=== PATIENT | male | born 1965 | race Caucasian/White ===

== ENCOUNTER 2024-06-10 18:53 | Observation (INO) | payer OTHER, SELFPAY ==
[2024-06-10] VITALS (10 sets, daily range): BP systolic 87–136; BP diastolic 61–88; BMI 37.8
[2024-06-10 15:03] LABS: % Basophils 0.5 % (0-2); % Eosinophils 3.3 % (0-6); % Immature Granulocytes 0.5 % (0-0.5); % Lymphocytes 32.4 % (20.5-51.1); % Monocytes 5.8 % (1.7-9.3); % Neutrophils 57.5 % (42.2-75.2); Absolute Basophils 0.1 10^3/uL (0-0.2); Absolute Eosinophils 0.4 10^3/uL (0-0.7); Absolute Immature Granulocytes 0.1 10^3/uL (0-0.05); Absolute Lymphocytes 3.7 10^3/uL (1.2-3.4); Absolute Monocytes 0.7 10^3/uL (0.1-0.6); Absolute Neutrophils 6.5 10^3/uL (1.4-6.5); Hematocrit 44.7 % (39.0-52.0); Hemoglobin 15.5 g/dL (13.0-18.0); Mean Corp Hgb Conc. 34.7 g/dL (33.0-37.0); Mean Corpuscular Hgb 28.4 pg (27.0-31.0); Mean Corpuscular Volume 81.9 fL (80.0-94.0); Mean Platelet Volume 10.9 fL (7.4-10.4); Nucleated Red Blood Cells % 0 % (-); Platelet Count 241 10^3/uL (130-400); Red Blood Cell Count 5.46 10^6/uL (4.70-6.10); Red Cell Dist. Width 13.2 % (11.5-14.5); White Blood Cell Count 11.3 10^3/uL (4.8-10.8)
[2024-06-10 15:16] LABS: ALT (SGPT) 32 U/L (0-50); AST (SGOT) 26 U/L (17-59); Albumin 4.1 g/dl (3.5-5.0); Alkaline Phosphatase 80 U/L (38-126); Blood Urea Nitrogen 26 mg/dl (9-20); Calcium 9.5 mg/dl (8.4-10.2); Carbon Dioxide 23 mmol/L (22-30); Chloride 103 mmol/L (98-107); Glucose 354 mg/dl (70-99); Potassium 4.7 mmol/L (3.5-5.1); Sodium 134 mmol/L (135-145); Total Bilirubin 0.9 mg/dl (0.2-1.3); Total Protein 7.5 g/dl (6.3-8.2); eGFR > 60.00
[2024-06-10 15:28] LABS: Troponin I 0.018 ng/ml
--- NOTE | 2024-06-10 16:53 | ED.GENMED ---
History of Present Illness
General
Chief Complaint: Chest Pain
Source: patient and spouse
Exam Limitations: none
Time Seen by Provider: 06/10/24 16:32
History of Present Illness
History of Present Illness:
58-year-old male asthma hypertension type 2 diabetes on lisinopril metformin presents with fatigue shortness of breath dizziness chest pressure no fevers onset 2 to 3 weeks ago worse with exertion better with rest did have some diarrhea yesterday
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
Past History
Past History
ED Past Medical History: Asthma, HTN, NIDDM and Other
ED Past Surgical History: None
Social History
Tobacco: Non-smoker
Alcohol: Occasional
Drug: None
Personal:
Living: with family
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
Family History
Family History: Early CAD
Review of Systems
Review of Systems
All Other Systems: Not applicable
Constitutional: Reports fatigue
EENT: Reports no symptoms
Respiratory: Reports trouble breathing
Cardiac: Reports chest pain; Denies diaphoresis
ABD/GI: Reports no symptoms
: Reports no symptoms
Musculoskeletal: Reports no symptoms
Skin: Reports no symptoms
Neurological: Reports weakness
Endocrine: Reports no symptoms
Hematologic/Lymphatic: Reports no symptoms
Phy Exam
Physical Exam
Physical Exam:
Physical Exam
General: no apparent distress, not acutely ill
Neck: No no jaundice
Heart: Regular
Lungs: no acute respiratory distress. clear bilaterally no wheezing
Abdomen not tender
Neuro: alert and oriented. no focal neurological deficits
Skin: no rash
Psychiatric: well kept. interactive and cooperative
Extremities: no edema. no calf tenderness.
Scores
Heart Score for Chest Pain Patients
STEMI patient?: No
History: Moderately Suspicious
ECG: Nonspecific Repolarization
Age: >45 - <65 years
Risk Factors: >/= 3 Risk Factors or History of CAD
Troponin: </= Normal Limit
Heart Score for Chest Pain Patients: 5
Heart Score Risk: 20.3% MACE over next 6 weeks
Course
Orders/Labs/Results
Orders:
Orders
06/10/24 14:16
Electrocardiogram (*1) Urgent
Reason for Study: Chest Pain
EKG- Treatment ONCE
06/10/24 14:45
Complete Blood Count/With Diff Urgent
Comprehensive Metabolic Panel Urgent
Glycohemoglobin (HgbA1c) Urgent
NT-proBNP Urgent
Comment: ADD ON
Troponin I Urgent
06/10/24 16:51
Add On- LAB Urgent
Tests Added?: hemoglobian a1c, pBNP
06/10/24 16:52
CR Chest - 2 Views Urgent
Comment:
Reason For Exam: sob
06/10/24 16:55
Troponin I Urgent
06/10/24 17:07
Aspirin 325 mg PO NOW STA
Insulin Aspart [NOVOLOG vial] 6 units SC NOW STA
Abnormal Lab Results
06/10/24
14:45
WBC 11.3 H 10^3/uL
(4.8-10.8)
MPV 10.9 H fL
(7.4-10.4)
Abs Immat Gran (auto) 0.1 H 10^3/uL
(0-0.05)
Absolute Lymphs (auto) 3.7 H 10^3/uL
(1.2-3.4)
Absolute Monos (auto) 0.7 H 10^3/uL
(0.1-0.6)
Sodium 134 L mmol/L
(135-145)
BUN 26 H mg/dl
(9-20)
Glucose 354 H mg/dl
(70-99)
06/10/24 14:45
06/10/24 14:45
Vital Signs
Initial and Last Documented VS:
Initial Vital Signs
Temp Pulse Resp BP Pulse Ox
98 F 101 22 136/88 98
06/10/24 14:36 06/10/24 14:36 06/10/24 14:36 06/10/24 14:36 06/10/24 14:36
Last Documented Vital Signs
Temp Pulse Resp BP Pulse Ox
98 F 101 22 136/88 98
06/10/24 14:36 06/10/24 14:36 06/10/24 14:36 06/10/24 14:36 06/10/24 17:15
MDM/Problems Addressed
Differential Diagnosis Includes:
ACS uncontrolled diabetes electrolyte abnormality dehydration heart failure doubt PE
MDM/Problems Addressed:
Fatigue chest pain shortness of breath
Chronic conditions affecting care: DM and HTN
Acute Exacerbation and/or Progression of Chronic Illness: HTN
*EKG
Interpreted by ED Provider?: Yes
Interpretation: abnormal
Comparison EKG: no comparison EKG present
Heart Rate: 78
Rate: normal
Rhythm: sinus
Ischemia: non-specific ST changes
*Director Of Search Engine Optimization Interpretation
Rate: normal
Interpretation: normal
Rhythm: sinus
*Critical Care Note
Total Time (30-74mins, 75-104mins- exclusive of procedures): Not Applicable
Update Note
Update Note:
5:15 PM multiple cardiovascular risk factors including hypertension diabetes family history sugars, states he is dyspneic with any exertion, will repeat his troponin start aspirin give him some NovoLog low threshold to admit for facilitated workup
close monitoring
ED Attending Note
-
Portions of this chart may have been created with voice recognition software.� Occasional wrong word or��sound alike� substitutions may have occurred due to the inherent limitations of voice recognition software.
Discharge Plan
Departure
Patient Disposition: Admit
Date of Disposition: 06/10/24
Time of Disposition: 17:19
Admit to: Telemetry
Presentation/result/management discussed w/ accepting MD/DO: Hospitalist
Patient with high blood pressure during this ER visit?: Yes
Condition: Fair
Covid-19: Not Applicable
Discharge Problem:
Chest pain, Diabetes
Prescriptions:
No Action
lisinopril-hydrochlorothiazide 20-25 mg Tablet
1 tab PO DAILY
albuterol sulfate [ProAir HFA] 90 mcg/actuation Hfa Aerosol Inhaler
2 puff INHALATION 6XD PRN (Reason: shortness of breath)
testosterone enanthate
diazepam [Valium] 5 mg tablet
5 mg PO HS PRN (Reason: muscle spasm) Qty: 7 0RF
diclofenac sodium 75 mg tablet,delayed release (DR/EC)
75 mg PO BID Qty: 10 0RF
Referrals:
Aleksandar Lyle MD [Family Provider] -
Interventions
Interventions:
*Risk Screen - Suicide Last Done: 06/10/24 14:36
*General Assessment Last Done: 06/10/24 14:36
*Neglect/Abuse Screening Last Done: 06/10/24 14:36
*ED- Fall Risk Assessment Last Done: 06/10/24 17:15
*ED COVID-19 Vaccine History Last Done: 06/10/24 17:15
ED- Cardiac Assessment Last Done: 06/10/24 17:15
Discharge Date and Time
Print Language: UZBEK
--- NOTE | 2024-06-10 17:20 | HPS.HSE ---
Addendum entered and electronically signed by Clay Brown MD 06/10/24 20:26:
I saw and examined the patient.
The NEW CAR SALES MANAGER or PA's note was reviewed and I agree with the note.
Comment:
58M Obesity HTN Asthma NIDDM p/w intermittent persistent progressive chest discomfort associated with exertional dyspnea 2-3 wks duration. Reported episodic dizziness/lightheadedness presyncope. Reported one episode diarrhea night prior to
presentation. Denied fever coughing sneezing nausea vomiting constipation. Reports family history heart dz mother and father.
Physical Exam
General: No acute distress appeared comfortable at time of evaluation. Obese
HEENT: NormoCephalic, Moist mucous membranes, Atraumatic
Respiratory: Clear
Cardiac: S1/S2 and Regular Rhythm
GI: Soft, Non Tender, Non Distended and Normal Bowel Sounds
Musculoskeletal: No Clubbing, No Cyanosis and No Edema
Neuro: AOx3 conversant coherent
Psych: Calm and Intact Judgment/Insight
#Intermittent chest pain exertional dyspnea unclear Etiology
#Significant family hx CAD
#significant risk factors CAD
Tele observation
Troponin neg x2
BNP not significantly elevated
Cardio eval
follow up lipid panel in AM
Check ECHO
#Uncontrolled DM
f/u A1c
hold home Metformin
Insulin sliding scale
DM NEW CAR SALES MANAGER eval
Original Note:
Family Physician
-
Family Physician: Aleksandar Lyle
Chief Complaint
-
chest pain
History of Present Illness
Patient is a 58-year-old male with past medical history significant for essential hypertension, asthma and NIDDM who presented to [facility] ED for evaluation of chest discomfort associated with shortness of breath. Patient reports that 2-3
weeks ago he started noticing the discomfort with exertion and has progressed to when at rest and is more frequently. He reports having dizzy and lightheadedness that at times feels like he will pass out. He denies any syncopal episode. Patient
reports yesterday not feeling well and having diarrhea with chills throughout the day and resolved by last night. He denies any fever, cough, nausea, vomiting, constipation or urinary symptoms.
Medical History
Past Medical History
Past Medical History: Reports Other
Additional Past Medical History:
essential hypertension
asthma
NIDDM
GERD
ED
Past Surgical History: Reports None
Social History
Tobacco: Former Smoker (quit 19 years ago )
Alcohol: Occasional
Drug: None
Personal:
Living: With Family
Employment: Employed
Family History
Family History: Other (Father: CAD, MD; Mother: CAD, DM; Brother: DM)
Allergies / Home Medications
Allergies reflects when Allergies were last updated in [employer].
Home Medications with original date entered in [employer]
Allergy/Medication List:
Allergies
Allergy/AdvReac Type Severity Reaction Status Date / Time
No Known Allergies Allergy Verified 06/10/24 14:36
Home Medications
lisinopril 20 mg-hydrochlorothiazide 25 mg tablet 1 tab PO DAILY 10/18/21
albuterol sulfate 90 mcg/actuation aerosol inhaler 2 puff inhalation R Q6HPRN PRN sob 06/10/24
famotidine 20 mg tablet (Pepcid) 20 mg PO DAILYPRN PRN indigestion 06/10/24
fexofenadine 180 mg tablet 180 mg PO DAILYPRN PRN allergies 06/10/24
fluticasone 250 mcg-salmeterol 50 mcg/dose blistr powdr for inhalation 1 inh inhalation R BID 06/10/24
metformin 500 mg tablet 500 mg PO BID 06/10/24
tadalafil 20 mg tablet 20 mg PO DAILYPRN PRN ed 06/10/24
Review of Systems
-
History Source: Patient
Constitutional: Reports Fatigue
Respiratory: Reports Trouble Breathing (shortness of breath associated with chest discomfort )
Cardiac: Reports Chest Pain and Other (dizziness/lightheaded)
Physical Exam
Vital Signs
Vital Signs
Temp Pulse Resp BP Pulse Ox
98 F 101 22 136/88 98
06/10/24 14:36 06/10/24 14:36 06/10/24 14:36 06/10/24 14:36 06/10/24 17:15
Physical Exam
General: Well Developed, Well Nourished, No Apparent Distress, Comfortable and Conversant
HEENT: NormoCephalic, Moist mucous membranes, Atraumatic, Bledsoe Conjunctivae, Nose Appears Normal and Ears Appear Normal
Respiratory: Clear
Cardiac: S1/S2 and Regular Rhythm
GI: Soft, Non Tender, Non Distended and Normal Bowel Sounds; No Organomegaly
Rectal: Deferred by Provider
Genito-urinary: Deferred by me
Musculoskeletal: No Clubbing, No Cyanosis and No Edema
Skin: IV/Catheter Site
Neuro: Awake, Alert, AO x 3 and Nonfocal/grossly intact
Psych: Calm and Intact Judgment/Insight
Laboratory Results
-
06/10/24 14:45
06/10/24 14:45
Laboratory Results
Total Bilirubin 0.9 mg/dl (0.2-1.3) 06/10/24 14:45
AST 26 U/L (17-59) 06/10/24 14:45
ALT 32 U/L (0-50) 06/10/24 14:45
Alkaline Phosphatase 80 U/L (38-126) 06/10/24 14:45
Troponin I 0.018 ng/ml 06/10/24 14:45
Data Reviewed
-
Diagnostic Radiology: Report Reviewed by me (CXR: No evidence of active cardiopulmonary disease.)
Medical Tests (Nuc Med, Echo, EKG etc): Report Reviewed by me (EKG: NORMAL SINUS RHYTHM POSSIBLE INFERIOR INFARCT , AGE UNDETERMINED)
Lab Data: Labs Reviewed by me (WBC 11.3, Neut 57.5, BUN 26, Creat 1.3, Trop 0.018)
Impression/Plan
-
IMPRESSION/PLAN:
#chest pain
Trop 0.018, BNP 50.7
EKG: NORMAL SINUS RHYTHM
POSSIBLE INFERIOR INFARCT , AGE UNDETERMINED
CXR: No evidence of active cardiopulmonary disease.
- Admit to telemetry
- Cardiology consult
- trend troponin
- ECHO
#essential hypertension
- continue lisinopril-HCTZ
#asthma
- continue albuterol HFA and fluticasone
#NIDDM
- AccuCheck AC & HS
- SSI
- hold metformin
- check A1c
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
#GERD
- continue famotidine
Code status: full code
DVT prophylaxis: Lovenox Sq
[2024-06-10 17:41] LABS: NT-proBNP 50.7 pg/ml
[2024-06-10 18:18] LABS: Glucose - Point of Care 295 mg/dl (70-99)
[2024-06-10] MEDS: ASPIRIN 325 MG PO (18:20)
[2024-06-10] MEDS: NOVOLOG vial 4 UNITS SC (18:20)
[2024-06-10 19:08] LABS: Troponin I 0.017 ng/ml
[2024-06-10 20:02] LABS: Glucose - Point of Care 261 mg/dl (70-99)
[2024-06-10 23:38] LABS: Glucose - Point of Care 227 mg/dl (70-99)
[2024-06-11] VITALS (9 sets, daily range): BP systolic 84–126; BP diastolic 58–96; BMI 38.1
[2024-06-11 01:21] LABS: Troponin I 0.013 ng/ml
--- NOTE | 2024-06-11 06:00 | PTCARENOTE ---
Pt complaints of dizziness and SOB upon walking to and from bathroom. Pt remains on RA. Vital signs stable. Denies any complaints of SOB. EKG/ am lab work obtained. Call ramirez in reach. Will continue to monitor.
[2024-06-11 06:02] LABS: Blood Urea Nitrogen 24 mg/dl (9-20); Calcium 9.4 mg/dl (8.4-10.2); Carbon Dioxide 25 mmol/L (22-30); Chloride 104 mmol/L (98-107); Estimated Creatinine Clearance 85 ml/min; Glucose 230 mg/dl (70-99); HDL Cholesterol 43 mg/dl; LDL Cholesterol, Calculated 136 mg/dl; Potassium 4.3 mmol/L (3.5-5.1); Sodium 138 mmol/L (135-145); Total Cholesterol 217 mg/dl (50-199); Triglyceride 194 mg/dl (10-149); Very Low Density Lipoprotein 38 mg/dl (0-30); eGFR > 60.00
[2024-06-11 06:11] LABS: Troponin I 0.015 ng/ml
--- NOTE | 2024-06-11 07:18 | W.PN.HOSP.TC ---
Today's Communication/Plan
-
discharge
Assessment / Plan
Assessment / Plan
Physical Exam
General: No acute distress appeared comfortable at time of evaluation. Obese
HEENT: NormoCephalic, Moist mucous membranes, Atraumatic
Respiratory: Clear
Cardiac: S1/S2 and Regular Rhythm
GI: Soft, Non Tender, Non Distended and Normal Bowel Sounds
Musculoskeletal: No Clubbing, No Cyanosis and No Edema
Neuro: AOx3 conversant coherent
Psych: Calm and Intact Judgment/Insight
58M Obesity HTN Asthma NIDDM p/w intermittent persistent progressive chest discomfort associated with exertional dyspnea 2-3 wks duration. Reported episodic dizziness/lightheadedness presyncope. Reported one episode diarrhea night prior to
presentation. Denied fever coughing sneezing nausea vomiting constipation. Reports family history heart dz mother and father.
#chest pain evaluation unclear etiology
BNP 50.7
EKGs reviewed
CXR: No evidence of active cardiopulmonary disease.
- Tele observation
- Troponin x4 consistently neg for ACS
- ECHO appreciated EF 55-60% no significant valve abn's
- Cardiology consult appreciated outpt stress test and follow up recommended
Lipid panel appreciated Hyperlipidemia
-atorvastatin recommended for greater risk reduction ACS, patient however declines at this time preferring lifestyle mgmt and to avoid statins.
#essential hypertension
- continue lisinopril-HCTZ
#asthma
- continue albuterol HFA and fluticasone
#NIDDM
- A1c appreciated 13.9 uncontrolled DM
- Consult Diabetic ARCHITECTURAL INTERN appreciated metformin increased to 1000 mg BID, glimepiride 2 mg daily started, and Lantus 10U bedtime added
- Diabetes Education appreciated
#GERD
- continue famotidine
Code status: full code
DVT prophylaxis: Lovenox Sq
Medically stable for discharge home with outpatient follow up recommendations.
discussed with patient and patient's Emerald
Total Time Preparing Discharge __40 minutes including examination of the patient, summary of the hospital stay, instructions for continuing care to all relevant caregivers; and preparation of discharge records, prescriptions, and referral
forms if necessary.
Anticipated Discharge: Today
Subjective/Interval History
-
Date of Service: June 11, 2024
No acute distress. Overall reports feeling well. Eager to go home.
Objective Data
-
Labs:
Laboratory Results
06/11/24
05:09
Sodium 138
Potassium 4.3
Chloride 104
Carbon Dioxide 25
BUN 24 H
Creatinine 1.3
Glucose 230 H
Calcium 9.4
Vital Signs:
Vital Signs
Temp Pulse Resp BP Pulse Ox
98 F 73 9 112/72 95
06/10/24 14:36 06/11/24 06:00 06/11/24 06:00 06/11/24 06:00 06/11/24 05:45
I&O
06/10/24 06/11/24 06/12/24
06:59 06:59 06:59
Intake Total 480 / 480
Balance 480 / 480
[2024-06-11 07:58] LABS: Glucose - Point of Care 213 mg/dl (70-99)
[2024-06-11] MEDS: ADVAIR HFA 115/21 MCG INHALER 2 PUFF INH (08:09)
[2024-06-11] MEDS: NOVOLOG FLEXPEN-LOW RESISTANCE 2 UNITS SC (08:34)
[2024-06-11] MEDS: ORETIC 25 MG PO (08:41)
[2024-06-11] MEDS: ZESTRIL 20 MG PO (08:41)
[2024-06-11 09:44] LABS: Glycohemoglobin (HgbA1c) 13.9 % (4.0-5.6)
--- NOTE | 2024-06-11 12:14 | PN.DE.MGMTRT ---
Insulin Management
- -
06/11/2024 Diabetes Management Consult
Patient c/o CP, fatigue, SOB, admitted 06/10. PMH HTN, GERD, diabetes, asthma. Prior to admission was taking 500 mg metformin BID (sometimes missed doses).
A1C on admission 13.9, cr 1.3, eGFR > 60.
Patient is awake alert and oriented able to discuss diabetes care. States he has a working glucose monitor, will bring in to be assessed. Patient states he really has not been testing or following any dietary guidelines. His primary doctor
manages his diabetes, but he has not been there in years, per patient.
Discussed elevated A1C and need to increase oral medication and start insulin.
Will increase metformin to 1000 bid add glimepiride 2 mg daily and start lantus 10 units @ HS. Patient is agreeable. Asked about starting weight loss med like Raji, encouraged patient to speak with primary care doctor regarding this.
Patient glucose 352 pre lunch, will give one time dose, 8 units novolog now.
Will follow.
Discussed with nurse.
Diabetes History
- -
Type of Diabetes: 2
Pre-Admission Diabetes Regimen
06/10/24 06/11/24
14:45 05:09
Creatinine 1.3 1.3
Lab Results
Hemoglobin A1c 13.9 % (4.0-5.6) H 06/10/24 14:45
Insulin Pump Settings
IP Diabetes Regimen
06/10/24 06/10/24 06/10/24
14:45 18:15 20:00
Glucose 354 H
POC Glucose 295 H 261 H
06/10/24 06/11/24 06/11/24
23:37 05:09 07:57
Glucose 230 H
POC Glucose 227 H 213 H
Patient Education
[2024-06-11 13:02] LABS: Glucose - Point of Care 352 mg/dl (70-99)
[2024-06-11] MEDS: AMARYL 2 MG PO (13:05)
[2024-06-11] MEDS: NOVOLOG FLEXPEN 8 UNITS SC (13:05)
[2024-06-11] MEDS: NOVOLOG FLEXPEN-LOW RESISTANCE SC ×2 (13:19→17:20)
--- NOTE | 2024-06-11 14:42 | CON.CAR ---
Addendum entered and electronically signed by Tyrel Portillo MD 06/11/24 15:49:
I saw and examined the patient.
The Iron Erector's note was reviewed and I agree with the note.
Comment: Briefly, 58-year-old man with poorly controlled diabetes, hypertension hyperlipidemia who presents for evaluation following several days to weeks of intermittent lightheadedness, dizziness, chest discomfort and dyspnea. It sounds like his
symptoms have been intermittent over the last week or so including while working on his boat at the [place]. Also reports diarrhea as well around this time.
No ischemic changes on serial ECGs
Troponin was within normal limits x 4
Transthoracic echocardiogram with normal LV function and no regional wall motion abnormalities
Discussed ischemic workup with patient and at bedside. We will arrange for outpatient stress test and close office follow-up.
Original Note:
Consultation
Consultation Request
Date/Time Consultation Requested: 06/10/24
Date/Time Consultation Performed: 06/11/24
Requesting Provider: Dr. Brown
Performing Provider: Dr. Portillo
Reason for Consultation: Chest pain, DELAROSA, lightheadedness
Medical History
-
History of Present Illness:
Patient came to ER yesterday with complaints of episodes of chest pressure, DELAROSA and lightheadedness over the last several weeks and was admitted with consultation to cardiology. Starting several weeks ago patient was having episodes of chest
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 More recently, this past Monday he and his teenage son were working on their sailboat at the
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
felt lightheaded so they finish their job and returned home. Over the next 24 hours the patient felt ill with symptoms of diarrhea but no vomiting and he also had chills, but no fever and was tired and took a several hour long nap. Yesterday the
patient was scheduled to work 6 PM to 2 AM and still was not feeling himself and was concerned about being in a potentially high risk environment and having an episode so he came to the ER for evaluation. No recurrence of CP.
PMH:
DM 2, poorly controlled with HgbA1c 13.9%
HTN
Past Medical History
Past Medical History: Other (in HPI)
Past Surgical History: Other (hip lipoma removed)
Social History
Tobacco: Former Smoker (started smoking in his late teens/early 20s and quit in 2005)
Alcohol: Occasional (monthly or less)
Drug: None
Personal:
Living: With Family
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
Family History
Family History: CAD (father with RI in his mid to late 50s, mother with DM 2 and RI in her 70s)
Allergies / Home Medications
Allergy/AdvReac Type Severity Reaction Status Date / Time
No Known Allergies Allergy Verified 06/10/24 14:36
�Medication �Instructions �Recorded �Confirmed �Type
lisinopril 20 1 tab PO DAILY 10/18/21 06/10/24 History
mg-hydrochlorothiazide 25 mg tablet
albuterol sulfate 90 mcg/actuation 2 puff inhalation R Q6HPRN PRN sob 06/10/24 06/10/24 History
aerosol inhaler
famotidine 20 mg tablet (Pepcid) 20 mg PO DAILYPRN PRN indigestion 06/10/24 06/10/24 History
fexofenadine 180 mg tablet 180 mg PO DAILYPRN PRN allergies 06/10/24 06/10/24 History
fluticasone 250 mcg-salmeterol 50 1 inh inhalation R BID 06/10/24 06/10/24 History
mcg/dose blistr powdr for
inhalation
metformin 500 mg tablet 500 mg PO BID 06/10/24 06/10/24 History
tadalafil 20 mg tablet 20 mg PO DAILYPRN PRN ed 06/10/24 06/10/24 History
Review of Systems
-
History Source: Patient and Family ()
All other systems: Negative unless noted
Physical Exam
Vital Signs
Temp Pulse Resp BP Pulse Ox
98.2 F 90 18 110/76 96
06/11/24 12:50 06/11/24 12:50 06/11/24 12:50 06/11/24 12:50 06/11/24 12:50
GEN: NAD. AAOx3
HEENT: EOMI, MMM
LUNGS: RA. CTA B/L, no wheeze
CV: Reg, S1/S2, no murmur
ABD: soft, BS+, NT, ND
EXT: No clubbing, cyanosis, lesions or edema B/L
NEURO: Gross non-focal
SKIN: Warm, dry and pink. No rash
Lab Results
06/10/24 14:45
06/11/24 05:09
Troponin I 0.015 ng/ml 06/11/24 05:09
[id number]-Yqdzrcopxnk Pept Cancelled 06/10/24 16:55
Impression / Plan
-
PCP: Dr. Lyle
Card: None prior to admission
Impression:
Chest pain and DELAROSA in the ER 06/10/24
Chest pain
DELAROSA
Lightheadedness
DM 2, poorly controlled with HgbA1c 13.9%
HTN
Hyperlipidemia, declined statin
Echo 06/11/2024: EF 55 to 60%, mild concentric LVH, normal RV size and function, no significant valvular pathology
Plan:
-Patient came to ER yesterday with complaints of episodes of chest pressure, DELAROSA and lightheadedness over the last several weeks and was admitted with consultation to cardiology. Starting several weeks ago patient was having episodes of chest
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 More recently, this past Monday he and his teenage son were working on their sailboat at the
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
felt lightheaded so they finish their job and returned home. Over the next 24 hours the patient felt ill with symptoms of diarrhea but no vomiting and he also had chills, but no fever and was tired and took a several hour long nap. Yesterday the
patient was scheduled to work 6 PM to 2 AM and still was not feeling himself and was concerned about being in a potentially high risk environment and having an episode so he came to the ER for evaluation. No recurrence of CP.
-ECG reviewed by me is sinus rhythm without acute ischemic changes
-Troponin serially normal and echo shows preserved EF without WMA and no significant valve disease.
-Patient is agreeable to discharge to home with outpatient stress test. Arranging for outpatient stress test to be performed in the next week at the [facility] office
-LDL is 136 and patient reports that he does not want to be on a statin medication. We talked about how statin medications can help lower LDL cholesterol beyond what he can accomplish with diet and exercise and that given his DM2 and HgbA1c of
13.9% a statin may be beneficial. Patient plans on a dramatic lifestyle change with diet and exercise at this time does not want to be on a statin.
-BP is controlled on his usual doses of lisinopril/HCTZ 20/25 mg daily
--- NOTE | 2024-06-11 15:47 | PTCARENOTE ---
06/11/2024 DIABETES EDUCATION
I met with Lynda and his to review diabetes management. He has a Caretouch glucometer he ordered online and test strips. Rarely checks glucose, admits to forgetting Metformin on occasion. I educated him that he cannot use
test strips, will yield incorrect results.
I educated on physiology of T2D, managing with medications, educated on complications, importance of monitoring BG, nutrition, activity, sleep and managing stress. Discussed normal target glucose ranges and a monitoring schedule pre and
postprandial. I reinforced signs of hyperglycemia, hypoglycemia; BS parameters and recommended HbA1c goals, written material provided. Encouraged patient to follow up with his PCP for post d/c appointment and to monitor medication and blood
glucose levels. Provided list of endocrinologists, he inquired about a CGM, I recommended he discuss with MD.
I educated and reviewed using Contour Next glucometer, member acknowledged understanding and declined a repeat demonstration as he states he knows how to use a glucometer.
I educated and demonstrated on insulin injection technique, timing, and storage. Discussed long and rapid acting insulin; onset/peak/duration, and encouraged him to administer his own injections with RN supervision while admitted. Spoke to nurse
and gave pen needles for self injection of insulin.
Wrapping Machine Tender visited during education, patient expressed desire for d/c today. Requested prescription sent to pharmacy for test strips and lancets for back up SMBG. Information provided on the outpatient DSME program. Patient verbalized
understanding.
--- NOTE | 2024-06-11 17:08 | W.DCSUMMARY ---
Discharge Summary
Discharge Data
Date of Admission: 06/10/24
Date of Discharge: 06/11/24
-
Pending Results: No
Discharge Plan
-
Patient Disposition: Home (Routine Discharge)
Discharge Diagnosis/Procedures: Chest pain evaluation unclear etiology, possible Angina
Hyperlipidemia
Hypertension
Uncontrolled Diabetes
Obesity
Condition: Fair
Diet: Low Cholesterol, 2 Gram Sodium and Diabetic, Carb Controlled
Activity: As tolerated
Driving Restrictions: As prior to admission
Bathing Restrictions: None
Blood Work: recent A1c 13.9 follow up with primary care provider for repeat in 3 months along with repeat lipid profile
Activity Restrictions/Additional Instructions:
Please keep your appointments with primary care provider and director of music.
For uncontrolled diabetes you've been prescribed increased dose home Metformin 1000 mg twice a day, Glimepiride 2 mg daily, and Long acting insulin Tresiba 10U bedtime.
Glucose monitoring device with associate equipment have also been prescribed. Please check and keep a log of your sugars three times a day before meals and at bedtime. Review log with your primary care provider and/or companion in follow up
for further evaluation/treatment diabetes.
Please take medications as prescribed/recommended and follow up with primary care provider and/or other healthcare provider involved in your care for refills and/or further adjustment to your medication regimen as necessary.
Referrals:
Tyrel Portillo MD [Active] - (You are scheduled for an exercise nuclear stress test at the [facility] office on 06/20/24 at 7:40 AM. The office will arrange an appt pending the results.)
Aleksandar Lyle MD [Family Provider] - 06/12/24
Prescriptions:
New
glimepiride 2 mg Tablet
2 mg PO DAILY Qty: 30 0RF
metformin 1,000 mg Tablet
1,000 mg PO BID@0800,1700 Qty: 60 0RF
insulin glargine [Basaglar KwikPen U-100 Insulin] 100 unit/mL (3 mL) insulin pen
10 unit SC HS Qty: 15 0RF
(DME) blood-glucose meter [Contour Next One Meter] Misc
Qty: 1 0RF
Rx Instructions:
As Directed
(DME) Contour Next Test Strips Strip
Qty: 200 0RF
Rx Instructions:
As Directed
(DME) lancets [Color Lancets] 21 gauge Misc
Qty: 200 0RF
Rx Instructions:
As Directed
Continued
lisinopril-hydrochlorothiazide 20-25 mg Tablet
1 tab PO DAILY
fluticasone propion-salmeterol 250-50 mcg/dose Blister With Device
1 inh INHALATION R BID
fexofenadine 180 mg Tablet
180 mg PO DAILYPRN PRN (Reason: allergies)
famotidine [Pepcid] 20 mg Tablet
20 mg PO DAILYPRN PRN (Reason: indigestion)
albuterol sulfate 90 mcg/actuation Hfa Aerosol Inhaler
2 puff INHALATION R Q6HPRN PRN (Reason: sob)
Held
tadalafil 20 mg Tablet
20 mg PO DAILYPRN PRN (Reason: ed)
Hold Instructions: Follow up with primary care provider to determine when safe to resume.
Discontinued
metformin 500 mg Tablet
500 mg PO BID
Discharge Orders:
Discharge Patient (As Directed); Ordered 06/11/24
Ordered By: Clay Brown
Discharge Date and Time
Print Language: CYPRIOT
[2024-06-11 17:28] LABS: Glucose - Point of Care 141 mg/dl (70-99)
== END 2024-06-11 18:16 | disposition home or self-care (01) ==
LOC: 1 ACUTE 18:53
PROVIDERS: Nurse Practitioner Family; ADMITTING PHYSICIAN Internal Medicine; EMERGENCY PHYSICIAN Emergency Medicine; FAMILY PHYSICIAN Family Medicine; OTHER PHYSICIAN Internal Medicine Cardiovascular Disease
DX: R07.89 Other chest pain (principal); J45.909 Unspecified asthma, uncomplicated; E11.65 Type 2 diabetes mellitus with hyperglycemia; I11.9 Hypertensive heart disease without heart failure; R42 Dizziness and giddiness; R06.02 Shortness of breath; R53.83 Other fatigue; R94.31 Abnormal electrocardiogram [ECG] [EKG]; E78.5 Hyperlipidemia, unspecified; K21.9 Gastro-esophageal reflux disease without esophagitis; R06.09 Other forms of dyspnea; R19.7 Diarrhea, unspecified; E66.9 Obesity, unspecified; Z68.38 Body mass index [BMI] 38.0-38.9, adult; Z79.84 Long term (current) use of oral hypoglycemic drugs; Z82.49 Family history of ischemic heart disease and other diseases of the circulatory system; Z87.891 Personal history of nicotine dependence; Z79.51 Long term (current) use of inhaled steroids; Z79.899 Other long term (current) drug therapy; Z83.3 Family history of diabetes mellitus
CPT/HCPCS: 71046; 80048; 80053; 80061; 82962; 83036; 83880; 84484; 85025; 93005; 93306; 99285; G0378; Q9957

== ENCOUNTER → 2024-06-20 07:17 | Outpatient (REF) | payer OTHER, SELFPAY | LOC: HWRCS 07:17 | PROVIDERS: ATTENDING PHYSICIAN Internal Medicine Cardiovascular Disease | DX: I25.9 Chronic ischemic heart disease, unspecified (principal); E11.9 Type 2 diabetes mellitus without complications; E78.2 Mixed hyperlipidemia | CPT/HCPCS: 78452; 93017; A9500 ==

== ENCOUNTER 2024-06-21 06:23 | Day surgery (SDC) | payer OTHER, SELFPAY ==
[2024-06-21] VITALS (11 sets, daily range): BP systolic 100–135; BP diastolic 68–82; BMI 38.1
[2024-06-21] MEDS: LOW STRENGTH ASPIRIN 81 MG PO (07:21)
[2024-06-21 07:28] LABS: Glucose - Point of Care 168 mg/dl (70-99)
--- NOTE | 2024-06-21 10:09 | ITS.CL.CATH ---
Ticket Printer And Tagger - Catheterization
Cardiac Catheterization
Procedure Report:
LEFT HEART CATHETERIZATION
Date of Procedure: June 21, 2024
Referring: Dr. Tyrel Portillo
PROCEDURES:
1. Left heart catheterization with coronary and single-plane left ventriculography
INDICATION: This is a 58-year-old gentleman with poorly controlled diabetes mellitus, hypertension and hyperlipidemia who presented to [facility] on 06/11/2024 for evaluation of substernal chest pressure he was scheduled for an outpatient
stress study that was notable for development of chest discomfort at fairly low levels of exertion. Perfusion was notable for a reversible inferior, inferolateral defect consistent with ischemia and fixed severe apical and inferior apical defect.
ACCESS: Right radial artery, 6 Bulgarian sheath
HEMODYNAMICS : (mmHg)
AO (s/d) : 110/77
LV (s/d) : 111/12
LVEDP : 22
CORONARY FINDINGS
DOMINANCE: Right
LEFT MAIN: Tubular 40% stenosis. No pressure dampening with engagement of a 6 Bulgarian diagnostic catheter
LEFT ANTERIOR DESCENDING: The LAD arises normally from the left main and runs in the anterior interventricular groove. The LAD becomes 100% occluded at the first diagonal branch and the apical LAD is noted to fill via right to left collaterals and
left to left collaterals. The first diagonal branch is large
CIRCUMFLEX: The circumflex is a medium caliber nondominant vessel. OM1 is a small caliber vessel that arises proximally from the circumflex and has an 80% proximal stenosis. The mid circumflex has an eccentric 80% calcified stenosis in the distal
circumflex trifurcates with OM 3 or OM 4 being the largest branch vessels beyond the bifurcation
RIGHT CORONARY ARTERY: 100% occluded proximally with the distal vessel noted to fill via right to right and well-developed [id number] collaterals
VENTRICULOGRAPHY: Left ventriculography is performed in CONDE projection. The digital single-plane left ventricular ejection fraction is visually estimated at 55% with mild anterolateral hypokinesis noted
SEDATION: 35 minutes of procedural sedation was utilized. An independent medical representative was present to assist with and help manage the patient's level of consciousness and physiologic status.
RADIATION SUMMARY: Fluoro Time (min): 2.4, Dose (mGy): 564, DAP (Gy.cm2) : 39
Closure Device: TR band
CONCLUSIONS
1. Multivessel coronary artery disease with chronic occlusions of the LAD and proximal RCA. The circumflex also has 80% stenosis in the mid vessel
2. Preserved LV systolic function
RECOMMENDATIONS
1. Consult CT surgery
2. Oral beta-farrukh and HERMAN inhibitor. Will discontinue hydrochlorothiazide. Will increase atorvastatin to 80 mg daily
3. He has been instructed to return for progression or worsening in symptoms.
Copy to: Dr. Tyrel Portillo
== END 2024-06-21 13:00 | disposition home or self-care (01) ==
LOC: CATH 06:23
PROVIDERS: ATTENDING PHYSICIAN Internal Medicine Interventional Cardiology; FAMILY PHYSICIAN Family Medicine
DX: I25.10 Atherosclerotic heart disease of native coronary artery without angina pectoris (principal); I25.82 Chronic total occlusion of coronary artery; E11.65 Type 2 diabetes mellitus with hyperglycemia; R55 Syncope and collapse; E11.9 Type 2 diabetes mellitus without complications; I10 Essential (primary) hypertension; J45.909 Unspecified asthma, uncomplicated; K21.9 Gastro-esophageal reflux disease without esophagitis; E78.5 Hyperlipidemia, unspecified
CPT/HCPCS: 82962; 93458; 99152; 99153; C1894; Q9967

== ENCOUNTER 2024-07-03 05:27 | Inpatient (IN) | payer OTHER, SELFPAY ==
[2024-06-28 14:00] LABS: % Basophils 0.6 % (0-2); % Eosinophils 2.5 % (0-6); % Immature Granulocytes 0.4 % (0-0.5); % Monocytes 5.5 % (1.7-9.3); Absolute Basophils 0.1 10^3/uL (0-0.2); Absolute Eosinophils 0.3 10^3/uL (0-0.7); Absolute Immature Granulocytes 0.1 10^3/uL (0-0.05); Absolute Lymphocytes 3.5 10^3/uL (1.2-3.4); Absolute Monocytes 0.7 10^3/uL (0.1-0.6); Absolute Neutrophils 7.9 10^3/uL (1.4-6.5); Hematocrit 44.4 % (39.0-52.0); Mean Corp Hgb Conc. 33.8 g/dL (33.0-37.0); Mean Corpuscular Hgb 28.4 pg (27.0-31.0); Mean Corpuscular Volume 83.9 fL (80.0-94.0); Mean Platelet Volume 11.2 fL (7.4-10.4); Nucleated Red Blood Cells % 0 % (-); Platelet Count 286 10^3/uL (130-400); Red Blood Cell Count 5.29 10^6/uL (4.70-6.10); Red Cell Dist. Width 13.7 % (11.5-14.5); White Blood Cell Count 12.5 10^3/uL (4.8-10.8)
[2024-06-28 14:03] LABS: Urine Albumin 3+ (Neg - Trace); Urine Bilirubin Negative (Negative); Urine Character Clear (Clear); Urine Color Yellow; Urine Glucose Negative (Negative); Urine Ketone Negative (Negative); Urine Leukocyte Negative (Negative); Urine Nitrite Negative (Negative); Urine Occult Blood Negative (Negative); Urine Specific Gravity 1.015 (<1.030); Urine Urobilinogen Negative (Neg - 1+)
--- NOTE | 2024-06-28 14:05 | CM ---
Chart reviewed. Met with the patient and in a PAT. Reviewed preoperative and postoperative instructions and restrictions, along with showering guidelines. Patient is agreeable to a home visit by CT Transitional RN. Patient is independent
of ADLS, lives with his in a split level home, [address], 0 DME. Plan is for the patient to return home with CT Transitional RN.
[2024-06-28 14:08] LABS: PT 13.5 Sec (11.4-14.6)
[2024-06-28 14:09] LABS: APTT 31.6 Sec (23.4-35.0)
[2024-06-28 14:14] LABS: ALT (SGPT) 46 U/L (0-50); AST (SGOT) 40 U/L (17-59); Albumin 4.6 g/dl (3.5-5.0); Alkaline Phosphatase 76 U/L (38-126); Blood Urea Nitrogen 29 mg/dl (9-20); Carbon Dioxide 19 mmol/L (22-30); Chloride 105 mmol/L (98-107); Direct Bilirubin 0.3 mg/dl (0.0-0.4); Glucose 78 mg/dl (70-99); Potassium 4.8 mmol/L (3.5-5.1); Sodium 139 mmol/L (135-145); Total Bilirubin 0.8 mg/dl (0.2-1.3); Total Protein 7.8 g/dl (6.3-8.2); eGFR 58.62
[2024-06-28 14:21] LABS: Urine Amorphous Seen; Urine Mucus Few; Urine Urothelial Cell 0-2 /LPF (FEW)
[2024-06-28 14:24] LABS: Urine Red Blood Cell 0-2 /HPF (0-2); Urine White Cell 0-2 /HPF (0-5)
[2024-07-03] VITALS (18 sets, daily range): BP systolic 81–151; BP diastolic 59–93; BMI 38.5
[2024-07-03] MEDS: MAGNESIUM OXIDE 500 MG PO (06:13)
[2024-07-03] MEDS: LOPRESSOR 25 MG PO (06:13)
[2024-07-03] MEDS: BACTROBAN 2% OINTMENT 1 APPLIC NASAL ×2 (06:13→21:03)
[2024-07-03] MEDS: PROTONIX 40 MG PO (06:13)
--- NOTE | 2024-07-03 07:00 | PTCARENOTE ---
pt admitted to 2262. pt confirmed NPO since midnight and 2 CHG showers completed. admission questions and home med reconciliation completed. Pt clipped and washed with CHG wipes. VS obtained. ABO obtained and pre-op meds given.
[2024-07-03 07:34] LABS: ACT+ - POC 118 Seconds (82-134)
[2024-07-03 08:10] LABS: Urine Albumin 3+ (Neg - Trace); Urine Bilirubin Negative (Negative); Urine Character Clear (Clear); Urine Color Yellow; Urine Glucose Negative (Negative); Urine Ketone Negative (Negative); Urine Leukocyte Negative (Negative); Urine Nitrite Negative (Negative); Urine Occult Blood 1+ (Negative); Urine Urobilinogen Negative (Neg - 1+)
[2024-07-03 10:11] LABS: ACT+ - POC 607 Seconds (82-134)
[2024-07-03 10:41] LABS: ACT+ - POC 587 Seconds (82-134)
--- NOTE | 2024-07-03 11:04 | CM ---
Chart reviewed. Patient is in the OR today. Patient is independent of ADLS, lives with his in a split level home, [address], 0 DME. Plan is for the patient to return home with CT Transitional RN. CM to follow
[2024-07-03 11:11] LABS: ACT+ - POC 571 Seconds (82-134)
--- NOTE | 2024-07-03 11:27 | PN.DE.MGMTRT ---
Insulin Management
- -
07/03/2024 Diabetes Management Consult
Patient admitted today for scheduled CABG. PMH multivessel CAD, HTN, HLD, GERD, diabetes, obesity, asthma, psoriasis. Prior to admission was taking 1000 mg metformin BID, Tresiba 8 units daily, glimepiride 2 mg daily.
Patient know to me from admission 06/11 with A1C 13.9%, cr 1.4, eGFR 58.62.
Patient is in the OR at the time of my visit. Patient to receive glycemic protocol insulin infusion s/p OR.
Will follow.
Discussed with nurse.
Diabetes History
- -
Type of Diabetes: 2
Pre-Admission Diabetes Regimen
Insulin Pump Settings
IP Diabetes Regimen
Patient Education
[2024-07-03 11:37] LABS: ACT+ - POC 471 Seconds (82-134)
[2024-07-03 12:08] LABS: ACT+ - POC 583 Seconds (82-134)
[2024-07-03 12:27] LABS: B.E. - POC -2.2 mmol/L; Glucose - POC 165 mg/dl (70-99); HCO3 - POC 24 mmol/L (21-28); Hematocrit - POC 33 % PCV (42-52); Hemodilution- POC Yes; Hemoglobin Calculated - POC 11.1; Ionized Calcium - POC 1.11 mmol/L (1.15-1.33); Lactate - POC 0.54 mmol/L (0.36-0.75); O2 Saturation %Calculated-POC 99.9 % (94-98); PCO2 - POC 47 mmHg (35-48); PO2 - POC 287 mmHg (83-108); Potassium - POC 5.1 mmol/L (3.5-5.1); Sodium - POC 138 mmol/L (136-145); Specimen Type - POC Arterial; pH - POC 7.32 (7.35-7.45)
[2024-07-03 12:38] LABS: ACT+ - POC 527 Seconds (82-134)
[2024-07-03 12:47] LABS: B.E. - POC -3.9 mmol/L; Glucose - POC 95 mg/dl (70-99); HCO3 - POC 22 mmol/L (21-28); Hematocrit - POC 45 % PCV (42-52); Hemodilution- POC No; Hemoglobin Calculated - POC 15.4; Ionized Calcium - POC 1.25 mmol/L (1.15-1.33); Lactate - POC < 0.30 mmol/L (0.36-0.75); O2 Saturation %Calculated-POC 99.9 % (94-98); PCO2 - POC 41 mmHg (35-48); PO2 - POC 368 mmHg (83-108); Potassium - POC 3.6 mmol/L (3.5-5.1); Sodium - POC 143 mmol/L (136-145); Specimen Type - POC Arterial; pH - POC 7.34 (7.35-7.45)
[2024-07-03 12:51] LABS: B.E. - POC -1.3 mmol/L; Glucose - POC 132 mg/dl (70-99); HCO3 - POC 24 mmol/L (21-28); Hematocrit - POC 34 % PCV (42-52); Hemodilution- POC Yes; Hemoglobin Calculated - POC 11.6; Ionized Calcium - POC 1.04 mmol/L (1.15-1.33); Lactate - POC < 0.30 mmol/L (0.36-0.75); PCO2 - POC 44 mmHg (35-48); PO2 - POC 390 mmHg (83-108); Sodium - POC 138 mmol/L (136-145); Specimen Type - POC Arterial; pH - POC 7.36 (7.35-7.45)
[2024-07-03 12:54] LABS: Glucose - POC 152 mg/dl (70-99); HCO3 - POC 23 mmol/L (21-28); Hematocrit - POC 34 % PCV (42-52); Hemodilution- POC Yes; Hemoglobin Calculated - POC 11.6; Ionized Calcium - POC 1.11 mmol/L (1.15-1.33); Lactate - POC 1.13 mmol/L (0.36-0.75); PCO2 - POC 44 mmHg (35-48); PO2 - POC 141 mmHg (83-108); Potassium - POC 5.3 mmol/L (3.5-5.1); Sodium - POC 139 mmol/L (136-145); Specimen Type - POC Arterial; pH - POC 7.33 (7.35-7.45)
[2024-07-03 12:56] LABS: B.E. - POC -0.9 mmol/L; Glucose - POC 169 mg/dl (70-99); HCO3 - POC 25 mmol/L (21-28); Hematocrit - POC 34 % PCV (42-52); Hemodilution- POC Yes; Hemoglobin Calculated - POC 11.5; Ionized Calcium - POC 1.09 mmol/L (1.15-1.33); Lactate - POC < 0.30 mmol/L (0.36-0.75); O2 Saturation %Calculated-POC 99.9 % (94-98); PCO2 - POC 46 mmHg (35-48); PO2 - POC 305 mmHg (83-108); Potassium - POC 5.1 mmol/L (3.5-5.1); Sodium - POC 138 mmol/L (136-145); Specimen Type - POC Arterial; pH - POC 7.34 (7.35-7.45)
[2024-07-03 12:57] LABS: Glucose - POC 178 mg/dl (70-99); HCO3 - POC 25 mmol/L (21-28); Hematocrit - POC 34 % PCV (42-52); Hemodilution- POC Yes; Hemoglobin Calculated - POC 11.5; Lactate - POC < 0.30 mmol/L (0.36-0.75); O2 Saturation %Calculated-POC 99.9 % (94-98); PCO2 - POC 49 mmHg (35-48); PO2 - POC 295 mmHg (83-108); Potassium - POC 5.4 mmol/L (3.5-5.1); Sodium - POC 137 mmol/L (136-145); Specimen Type - POC Arterial; pH - POC 7.31 (7.35-7.45)
[2024-07-03 13:07] LABS: ACT+ - POC 430 Seconds (82-134)
[2024-07-03 13:32] LABS: ACT+ - POC 112 Seconds (82-134)
[2024-07-03 14:10] LABS: B.E. - POC 0.2 mmol/L; Glucose - POC 158 mg/dl (70-99); HCO3 - POC 26 mmol/L (21-28); Hematocrit - POC 33 % PCV (42-52); Hemodilution- POC Yes; Hemoglobin Calculated - POC 11.4; Ionized Calcium - POC 1.09 mmol/L (1.15-1.33); Lactate - POC < 0.30 mmol/L (0.36-0.75); PCO2 - POC 44 mmHg (35-48); PO2 - POC 444 mmHg (83-108); Potassium - POC 5.1 mmol/L (3.5-5.1); Sodium - POC 140 mmol/L (136-145); Specimen Type - POC Arterial; pH - POC 7.37 (7.35-7.45)
[2024-07-03 14:10] LABS: B.E. - POC -4.8 mmol/L; Glucose - POC 161 mg/dl (70-99); HCO3 - POC 20 mmol/L (21-28); Hematocrit - POC 30 % PCV (42-52); Hemodilution- POC Yes; Hemoglobin Calculated - POC 10.2; Ionized Calcium - POC 1.22 mmol/L (1.15-1.33); Lactate - POC < 0.30 mmol/L (0.36-0.75); PCO2 - POC 36 mmHg (35-48); PO2 - POC 387 mmHg (83-108); POC Comment POST; Potassium - POC 4.2 mmol/L (3.5-5.1); Sodium - POC 142 mmol/L (136-145); Specimen Type - POC Arterial; pH - POC 7.36 (7.35-7.45)
--- NOTE | 2024-07-03 14:10 | W.CVOR.SURPR ---
CVOR Surgeon Immed Pre Op
-
I have examined this patient prior to performance of the scheduled procedure.
The patient's condition is unchanged from the time of the dictated/written History and
Physical and the patient is able to undergo the scheduled procedure.
--- NOTE | 2024-07-03 14:10 | W.IMMPOSTOP ---
Addendum entered and electronically signed by Andrey Engle MD 07/03/24 15:04:
[id number]
Original Note:
Surgical Immed Post Op Note
-
CARDIAC SURGERY OPERATIVE NOTE:
Preoperative Dx:
Multi-vessel CAD including CONTINUOUS IMPROVEMENT CONSULTANT of LAD and RCA
Poorly-controlled DM (HgbA1c:
Obesity (BMI 38.5)
Postoperative Dx:
Same
Procedures:
1) Median sternotomy
2) Takedown of BARTOLO (narrowed pedicle)
3) Endoscopic harvest/prep of RLE GSV
4) CABG x 5 (BARTOLO to LAD, GSV to D1, sGSV to OM1-OM4, GSV to RPDA)
5) ELAA
Surgeon:
Andrey Engle M.D.
Assistants:
Jon Hair-Tita; compounding assistant throughout
Kenna Limon P.A.-C.; endoscopic harvest/prep of RLE GSV
Jon Vance-Tita; [id number]-[id number] sternotomy closure
Anesthesia:
Reji Ravi M.D. and Juanpablo ChristopherN.A.
Perfusion:
Roxanne Serrano C.C.P.; XC: 120min, CPB: 167min
Findings:
BARTOLO was very healthy conduit w/ very brisk blood flow; ELD 3.25mm
GSV was healthy conduit w/ ELDs ranging from 2.5mm-4.5mm
LAD was visible on the epicardial surface, dense calcifications, anastomosis performed in proximal aspect of distal third of vessel; ELD 2.5mm
D1 was visible on the epicardial surface, scattered calcifications, ELD 3.5mm
OM1 was visible on the epicardial surface, scant scattered calcifications, ELD 1.50mm
OM4 was visible on the epicardial surface, scant scattered calcificaitons, ELD 1.75mm
RPDA was visible on the epicardial surface, dense calcifications, anastomosis performed in proximal third; ELD 1.75mm
There was significant non-coronary collateral flow through all targets except the LAD; 1.5 and 1.0mm coronary shunts utilized to facilitate anastomoses
Good flow in all grafts on hand injection and subsequently on transit-time U/S flow probe assessment
FÁTIMA was of bilobed windsock morphology - occluded at base w/ 45mm AtriClip
Normal biventricular function postoperatively w/ no sig VHD, no RWMA; FÁTIMA confirmed excluded
Implants:
CT x 4 (B/L pleural, inferior mediastinal, superior mediastinal)
45mm AtriClip
Sternal wires x 7
Sternal 'X' plate w/ 8 - 14mm screws
Sternal 'Square' plate w/ 4 - 12mm screws
Transfusions:
None
Complications:
None
Condition:
73 sinus (0.2/0.1), 97/64, 100%
GTTS: levophed 3, precedex 0.8, insulin 1
Stable/guarded to CVICU
CT drainage not excessive (
--- NOTE | 2024-07-03 14:16 | CON.INTV ---
Consultation
Consultation Request
Date/Time Consultation Requested: 07/03/2024
Date/Time Consultation Performed: 07/03/2024
Requesting Provider: Andrey Engle
Performing Provider: Vicente Person
Reason for Consultation: Post CABG
Medical History
-
History of Present Illness:
Patient is a very pleasant 59-year-old gentleman who was admitted to [facility] in the end of May this year for chest discomfort with shortness of breath. He was ruled out to have acute myocardial infarction and further workup included
an echocardiogram and a stress test. Ischemia was suggested by stress test which led to cardiac catheterization which showed multivessel coronary artery disease and patient was referred to CT surgery for consideration of coronary artery bypass
graft.
Past Medical History: Reports Other
Additional Past Medical History:
essential hypertension
DM
asthma
NIDDM
GERD
ED
Psoriasis
Past Surgical History: Reports None
Social History
Tobacco: Former Smoker (quit 19 years ago )
Alcohol: Occasional
Drug: None
Personal:
Living: With Family
Employment: Employed
Family History
Family History: Other (Father: CAD, [place]; Mother: CAD, DM; Brother: DM)
Allergies / Home Medications
Allergies / Home Medications
Allergies
Allergy/AdvReac Type Severity Reaction Status Date / Time
No Known Allergies Allergy Verified 06/27/24 10:09
Home Medications
�Medication �Instructions �Recorded �Confirmed �Last Taken �Type
albuterol sulfate 90 mcg/actuation 2 puff inhalation R Q6HPRN PRN sob 06/10/24 07/03/24 07/02/24 23:00 History
aerosol inhaler
famotidine 20 mg tablet (Pepcid) 20 mg PO DAILYPRN PRN indigestion 06/10/24 07/03/24 06/18/24 10:30 History
fexofenadine 180 mg tablet 180 mg PO DAILYPRN PRN allergies 06/10/24 07/03/24 06/24/24 10:30 History
fluticasone 250 mcg-salmeterol 50 1 inh inhalation R BID 06/10/24 07/03/24 07/02/24 21:00 History
mcg/dose blistr powdr for
inhalation
blood sugar diagnostic (Contour #200 ea 06/11/24 06/21/24 Unknown Rx
Next Test Strips)
blood-glucose meter (Contour Next #1 ea 06/11/24 06/21/24 Unknown Rx
One Meter)
glimepiride 2 mg tablet 2 mg PO DAILY #30 tabs 06/11/24 07/03/24 07/02/24 10:30 Rx
lancets 21 gauge (Color Lancets) #200 ea 06/11/24 06/21/24 Unknown Rx
metformin 1,000 mg tablet 1,000 mg PO BID@0800,1700 #60 tabs 06/11/24 07/03/24 07/02/24 21:00 Rx
aspirin 81 mg tablet 81 mg PO DAILY 06/21/24 07/03/24 07/02/24 10:30 History
insulin degludec 100 unit/mL (3 8 unit SC DAILY 06/21/24 07/03/24 07/02/24 21:00 History
mL) subcutaneous pen (Tresiba
FlexTouch U-100 insulin)
lisinopril 10 mg tablet 10 mg PO DAILY #30 tabs 06/21/24 07/03/24 06/30/24 10:30 Rx
metoprolol succinate 25 mg 25 mg PO DAILY 06/21/24 07/03/24 07/02/24 10:30 History
tablet,extended release 24 hr
atorvastatin 40 mg tablet 80 mg PO DAILY 06/27/24 07/03/24 07/02/24 10:30 History
Review of Systems
-
Unable to Obtain full review of systems at this time due to: Patient Intubation
Vitals / Labs / Diagnostic Testing
Vital Signs
Temp Pulse Resp BP Pulse Ox
97.9 F 94 20 139/93 99
07/03/24 06:18 07/03/24 06:18 07/03/24 06:18 07/03/24 06:18 07/03/24 06:18
Diagnostic Testing:
Physical Exam
-
HEENT: Normocephalic
Cardiovascular: S1/S2
Respiratory: Clear and Non-Labored Respirations (No wheezing on exam)
GI: Soft and Non Distended
Neurology: Other (Patient sedated.)
Skin: Warm
Assessment
-
Patient is a 59-year-old gentleman with newly detected multivessel coronary artery disease, s/p CABG x 5, left atrial appendage exclusion POD #0
Titrate off pressors per protocol, currently on Levophed at 1
ECHO reviewed with normal EF
PA catheter removed, Cordis in place, right IJ
Management of chest tubes per primary service
Intubated/sedated, initiate SAT when able. Currently on Precedex infusion, sedated
Pain control
RASS goal of 0 to -1
Intubated for procedure, SBT trial when patient able to spontaneously breathe
Current vent settings: SIMV, 550/12/40%/5, breathing at respiratory rate of 12/min
ABG(s) 7.34, 39, 115
CXR low lung volumes, chest tubes in place
Extubate per protocol
Maintain supplement oxygen as needed
Known history of asthma, elevated eosinophil count, suspect high T2, continue Advair twice daily as ordered, as needed albuterol, no wheezing on exam
Spirometry, preop, essentially normal
Aspiration precautions
Encouraged incentive spirometry, OOB/ambulation/early mobility
Advance diet as tolerated following extubation
GI prophylaxis: Patient currently on Protonix
Monitor critical I/O's
Hb/platelets postoperatively pending
Trend CBC for now
Can transfuse if indicated for Hb <7, plt <50 in surgical patients
DVT prophylaxis including SCDs
Insulin protocol initiated and ongoing, per protocol
Transition to SQ/off as indicated per team
Other medical co-morbidities:
-Asthma (Eosinophil count 200-400), continue Advair and as needed albuterol
-DM. Currently on insulin infusion
-HTN. Metoprolol ordered, currently on levophed @ 1
-HLD. High-dose statins
-GERD. On PPI
Critical Care time 65 mins -- The patient is admitted for acute critical illness for the treatment of vital organ failure and/or prevention of further life-threatening conditions. Total care includes time spent in review of history, physical exam,
medications, hemodynamic/ventilator parameters, laboratory data, imaging and discussion with house staff, pharmacy, respiratory therapy, waste disposal leakage tester, and nursing.
Data:
Spirometry 06/2024: FEV1 96% of predicted, FVC 104% of predicted, ratio 71. TLC 107% predicted. Normal spirometry, lung volumes and diffusion capacity.
SATISH 06/2024: Normal biventricular function with no wall motion abnormalities. The LVEF is
60-65% by visual inspection.
Trace mitral regurgitation.
Normal left atrial appendage.
Normal aortic valve.
Normal tricuspid valve.
Normal aorta and aortic root.
Cardiac Cath 06/2024: 1. Multivessel coronary artery disease with chronic occlusions of the LAD and proximal RCA. The circumflex also has 80% stenosis in the mid vessel
2. Preserved LV systolic function
CXR 05/2024: Unremarkable
[2024-07-03] MEDS: NOVOLOG FLEXPEN SC ×2 (14:17→16:10)
[2024-07-03] MEDS: TYLENOL PO ×2 (14:17→21:40)
[2024-07-03] MEDS: LIPITOR PO (14:17)
[2024-07-03] MEDS: NEURONTIN PO ×3 (14:17→21:40)
[2024-07-03 14:48] LABS: Glucose - Point of Care 187 mg/dl (70-99)
[2024-07-03 14:58] LABS: B.E. -4.4 mmol/L; Ionized Calcium 1.22 mMOL/L (1.15-1.33); O2 Saturation % 99.5 % (94-98); PCO2 39 mmHg (35-48); PO2 115 mmHg (83-108); Potassium 4.6 mMOL/L (3.5-5.1); Sodium 133 mMOL/L (136-145); pH 7.34 (7.35-7.45)
[2024-07-03 15:08] LABS: INR 1.34; PT 17.1 Sec (11.4-14.6)
[2024-07-03 15:09] LABS: APTT 31.8 Sec (23.4-35.0)
[2024-07-03 15:15] LABS: Hematocrit 31.3 % (39.0-52.0); Hemoglobin 10.9 g/dL (13.0-18.0); Platelet Count 211 10^3/uL (130-400)
[2024-07-03] MEDS: LR 250 ML IV ×4 (15:25→18:14)
[2024-07-03] MEDS: NSS 500 IV (15:25)
[2024-07-03] MEDS: ANCEF 10 IV (15:26)
[2024-07-03] MEDS: PRECEDEX 100 IV (15:26)
[2024-07-03] MEDS: ANCEF 15 MG IV (15:26)
--- NOTE | 2024-07-03 15:29 | PTCARENOTE ---
Received pt from CVOR at 1445; pt intubated and sedated; Puiples 2mm and reactive; NSR Prolonged QT on monitor and BP labile LR 250mls given; RIJ Cordis/SLIC, Left A-line and PIV x1 all lines leveled and zeroed; Levo, Insulin and Precedex infusing
see flow sheet for details; Lungs diminished; ETT 8 23 @ lip; Vent settings SIMV 40%/ 550/12/5; CT x4 to -20 wall suction no air leak and no crepitus noted; hypoactive bowel sounds; Scott catheter draining clear yellow urine; palpable pulses
throughout; no edema noted; all surgical sites C/D/I; see nursing documentation for further details.
--- NOTE | 2024-07-03 15:40 | W.PN.CARDCBS ---
Addendum entered and electronically signed by Edmar Santiago MD 07/03/24 16:00:
I saw and examined the patient.
The CHUTE PULLER or PA's note was reviewed and I agree with the note.
Comment: General: Sedate
Neck: Supple, no JVD, HJR, carotids +2 B/L, no bruits bilaterally.
Heart: Non displaced PMI, RRR, no murmurs, No S3, S4, no rubs.
Lungs: Scattered rhonchi
Sternal dressings noted
Extremities: No clubbing, cyanosis or edema bilaterally.
Neuro: Sedate
Lynda has a history of poorly controlled diabetes, hypertension, reflux disease, asthma. He is found to have multivessel disease on catheterization in June 2024. He underwent 5 vessel CABG and is seen postoperatively. Present time is sedate.
Currently on Levophed 1 mcg. Remains in sinus rhythm immediately postop. Discussed with nursing
Original Note:
Today's Communication / Plan
-
continue post op care
Impression / Plan
-
Primary Pig Casting Machine Operator: Dr. Portillo
Assessment:
MV CAD s/p CABG x 5 BARTOLO to LAD, GSV to D1, sGSV to OM1-OM4, GSV to RPDA, FÁTIMA clip 07/03/24
Poorly controlled diabetes with hgbA1c 13.9%
HTN
HLD
GERD
Asthma
Obesity
FH CAD
Echo 06/11/24: EF 55 to 60%, mild concentric LVH, no significant valvular pathology, no regional wall motion abnormalities
Plan:
-s/p CABG x 5 BARTOLO to LAD, GSV to D1, sGSV to OM1-OM4, GSV to RPDA, FÁTIMA clip 07/03/24
-intubated, sedated
-on levo@1, wean as able
-EKG SR with NSSTS and prolonged QTc
-hgb 10.9, follow post op. for asa, plavix
-needs strict glucose control moving forward, has been poorly controlled with recent hgbA1c of 13.9%. would have DM CHUTE PULLER follow post op
-was on toprol 25mg daily and lisinopril 10mg daily preop. will resume OP regimen as BP allows
-continue post op care
-d/w nursing
Progress Note - Pig Casting Machine Operator
Subjective
Date of Service: July 03, 2024
intubated, sedated
Objective
Labs:
Labs
Hgb 10.9 g/dL (13.0-18.0) L D 07/03/24 14:48
Hct 31.3 % (39.0-52.0) L 07/03/24 14:48
Plt Count 211 10^3/uL (130-400) D 07/03/24 14:48
PT 17.1 Sec (11.4-14.6) H 07/03/24 14:48
INR 1.34 07/03/24 14:48
APTT 31.8 Sec (23.4-35.0) 07/03/24 14:48
Sodium 139 mmol/L (135-145) 06/28/24 12:21
Potassium 4.8 mmol/L (3.5-5.1) 06/28/24 12:21
BUN 29 mg/dl (9-20) H 06/28/24 12:21
Creatinine 1.4 mg/dL (0.7-1.3) H 06/28/24 12:21
Glucose 78 mg/dl (70-99) 06/28/24 12:21
Vital Signs and I&O:
Vital Signs
Temp Pulse Resp BP Pulse Ox
97.8 F 75 12 139/93 100
07/03/24 14:56 07/03/24 14:50 07/03/24 14:56 07/03/24 06:18 07/03/24 15:38
Vital Signs
Temp Pulse Resp BP Pulse Ox
97.8 F 75 12 139/93 100
07/03/24 14:56 07/03/24 14:50 07/03/24 14:56 07/03/24 06:18 07/03/24 15:38
Intake & Output
07/01/24 07/02/24 07/03/24 07/04/24
07:59 07:59 07:59 07:59
Intake Total 363.2 / 363.2
Output Total 150 / 150
Balance 213.2 / 213.2
Physical Exam
Physical Exam
GEN: No distress, intubated
HEENT: supple, mmm
LUNGS: CTA B/L, no wheezes/rales
CV: Reg, S1/S2, no murmur
EXT: No cyanosis, clubbing, edema. RLE with aniyah wrap in place
NEURO: sedated
SKIN: Warm, pink, dry. No rash. soft restraints in place B/L UE. CTs in place.
: harry
[2024-07-03 15:41] LABS: Blood Urea Nitrogen 36 mg/dl (9-20); Estimated Creatinine Clearance 76 ml/min; Glucose 193 mg/dl (70-99); Magnesium 2.5 mg/dl (1.6-2.3)
[2024-07-03 15:55] LABS: Glucose - Point of Care 164 mg/dl (70-99)
--- NOTE | 2024-07-03 16:08 | PTCARENOTE ---
Respiratory and CTNP at bedside; pt placed on CPAP trail.
[2024-07-03] MEDS: PACERONE PO ×2 (16:10→21:40)
[2024-07-03] MEDS: TORADOL 15 MG IV ×2 (16:10→21:30)
[2024-07-03] MEDS: OFIRMEV 100 IV (16:32)
[2024-07-03 16:38] LABS: B.E. - POC -2.1 mmol/L; Blood Urea Nitrogen - POC 36 mg/dl (3-120); Chloride - POC 108 mmol/L (96-111); Creatinine - POC 1.41 mg/dl (0.3-1.0); Glucose - POC 167 mg/dl (70-99); HCO3 - POC 24 mmol/L (21-28); Hematocrit - POC 36 % PCV (42-52); Hemodilution- POC Yes; Hemoglobin Calculated - POC 12.3; Ionized Calcium - POC 1.29 mmol/L (1.15-1.33); Lactate - POC 1.07 mmol/L (0.36-0.75); O2 Saturation %Calculated-POC 99.1 % (94-98); PCO2 - POC 45 mmHg (35-48); PO2 - POC 149 mmHg (83-108); Potassium - POC 4.8 mmol/L (3.5-5.1); Sodium - POC 141 mmol/L (136-145); Specimen Type - POC Arterial; pH - POC 7.33 (7.35-7.45)
--- NOTE | 2024-07-03 16:53 | PTCARENOTE ---
ABGs reviewed with CTNP; respiratory at bedside and pt extubated.
--- NOTE | 2024-07-03 16:55 | RESPNOTE ---
Respiratory: patient extubated without incident, no stridor, no wheeze.
[2024-07-03 17:04] LABS: Glucose - Point of Care 151 mg/dl (70-99)
[2024-07-03 18:04] LABS: Glucose - Point of Care 133 mg/dl (70-99)
[2024-07-03] MEDS: LOW STRENGTH ASPIRIN 81 MG PO (18:28)
[2024-07-03 18:42] LABS: Hematocrit 30.9 % (39.0-52.0); Hemoglobin 10.7 g/dL (13.0-18.0); Platelet Count 250 10^3/uL (130-400)
[2024-07-03 19:05] LABS: Glucose - Point of Care 133 mg/dl (70-99)
[2024-07-03] MEDS: ALBUMIN 5% 250 IV ×2 (19:06→21:01)
[2024-07-03] MEDS: ADVAIR HFA 115/21 MCG INHALER 2 PUFF INH (19:06)
[2024-07-03] MEDS: ProAIR HFA INHALER 2 PUFF INH (19:06)
--- NOTE | 2024-07-03 19:45 | PTCARENOTE ---
Report from CHRISTINE De La Torre. Walking rounds done. BP 80's systolic. Albumin 5% given IV per order of PA. Pt drowsy yet easily arouses to voice. Equal strength x 4. Speech clear. Oriented x 4. On 6L/NC, sats 100%. BBS present. Decreased to B bases. CDB
encouraged. Pt in SR. Audible heart tones, yet distant. Levo gtt titrated between 5 and 6 mcg/min per CVICU protocol. CT x 4, all to -20 cm suction. Hourly and prn outputs recorded. Belly soft, nontender. Hypoactive bs x 4. Scott draining clear,
yellow urine. Hourly UO followed. Glycemic protocol maintained. Ongoing plan of care.
--- NOTE | 2024-07-03 20:35 | RESPNOTE ---
PT was extubated to 6L nasal cannula and tolerated well. PT was suctioned before and after and voiced his name post extubation. I/S was performed several times with a best result of 1,000 mls. Vent was pulled and cleaned. Will continue to
monitor resp status.
[2024-07-03 20:48] LABS: Glucose - Point of Care 133 mg/dl (70-99)
[2024-07-03 20:50] LABS: B.E. -4.9 mmol/L; HCO3 20.6 mmol/L (21-28); Ionized Calcium 1.16 mMOL/L (1.15-1.33); O2 Saturation % 99.6 % (94-98); PCO2 39 mmHg (35-48); PO2 231 mmHg (83-108); Potassium 4.9 mMOL/L (3.5-5.1); pH 7.33 (7.35-7.45)
[2024-07-03 20:51] LABS: O2 Therapy 6L
[2024-07-03 20:53] LABS: Mixed Venous O2 Saturation 60.5 %
[2024-07-03] MEDS: SODIUM BICARBONATE 50 MEQ IV (21:01)
[2024-07-03] MEDS: CALCIUM GLUCONATE 100 IV (21:02)
[2024-07-03] MEDS: SENOKOT-S 1 TABLET PO (21:03)
--- NOTE | 2024-07-03 21:24 | PTCARENOTE ---
Levophed gtt currently at 6 mcg/min. SBP 99-100's. Labs drawn and sent. NaHCO3 50 meQ IV given per order. 2nd Albumin 5% given per order. Ca Gluconate 2 GM IV given per order. O2 down to 4L/NC.
[2024-07-03 23:56] LABS: Glucose - Point of Care 116 mg/dl (70-99)
[2024-07-03 23:59] LABS: B.E. -3.3 mmol/L; HCO3 21.2 mmol/L (21-28); O2 Saturation % 99.6 % (94-98); PCO2 35 mmHg (35-48); PO2 159 mmHg (83-108); pH 7.39 (7.35-7.45)
[2024-07-04] VITALS (42 sets, daily range): BP systolic 78–142; BP diastolic 48–97; PULSE 90; O2SAT 94; BMI 39.5
[2024-07-04] LABS: O2 Therapy 4L
[2024-07-04] MEDS: NEURONTIN PO
[2024-07-04] MEDS: PACERONE PO ×3 (00:21→17:13)
[2024-07-04] MEDS: TYLENOL PO (00:21)
[2024-07-04] MEDS: ProAIR HFA INHALER 2 PUFF INH ×4 (00:29→19:23)
[2024-07-04] MEDS: SODIUM BICARBONATE 50 MEQ IV (00:32)
[2024-07-04] MEDS: ZOFRAN 4 MG IV (00:38)
[2024-07-04 00:54] LABS: Glucose - Point of Care 138 mg/dl (70-99)
--- NOTE | 2024-07-04 01:07 | PTCARENOTE ---
ABG drawn and sent. Sodium Bicarbonate 50 meQ IV given per order. for BP 80's systolic. Pt also had nausea and attempted to vomit. BP 79-80's systolic. Levo gtt up to 6 mcg/min. SBP increased to 100's-110's on Levo 6 mcg/min and after NaHCO3 given.
LIAT Jc at [facility]. To recheck ABG in ~30 minutes post Bicarb administration. Remains in SR. Sats on 4L/NC are 100%. RT t administer albuterol for c/o chest tightness prior to drop in BP.
[2024-07-04 01:21] LABS: B.E. -2.4 mmol/L; HCO3 22.5 mmol/L (21-28); Ionized Calcium 1.19 mMOL/L (1.15-1.33); O2 Saturation % 99.5 % (94-98); PCO2 38 mmHg (35-48); PO2 182 mmHg (83-108); Potassium 4.3 mMOL/L (3.5-5.1); pH 7.38 (7.35-7.45)
[2024-07-04 01:21] LABS: Glucose - Point of Care 123 mg/dl (70-99)
[2024-07-04 01:22] LABS: O2 Therapy 4L NC
[2024-07-04 03:21] LABS: Glucose - Point of Care 138 mg/dl (70-99)
[2024-07-04] MEDS: LEVOPHED 250 IV (03:25)
--- NOTE | 2024-07-04 03:27 | DOWNTIME ---
There was a [employer] Downtime on 07/04/2024 from 0200 to 07/05/2023 at 0318 . Downtime documentation of patient's care, including medication administrations, has been reconciled in the electronic record per guidelines. Refer to the
patient's paper chart under the miscellaneous tab to see printed paper medication records and downtime forms.
[2024-07-04 04:08] LABS: Glucose - Point of Care 114 mg/dl (70-99)
[2024-07-04] MEDS: TORADOL IV ×2 (04:12→04:30)
[2024-07-04 04:36] LABS: Mixed Venous O2 Saturation 60.4 %
[2024-07-04 04:38] LABS: Ionized Calcium 1.17 mMOL/L (1.15-1.33)
[2024-07-04 04:39] LABS: Hematocrit 27.2 % (39.0-52.0); Hemoglobin 9.4 g/dL (13.0-18.0); Mean Corp Hgb Conc. 34.6 g/dL (33.0-37.0); Mean Corpuscular Hgb 28.8 pg (27.0-31.0); Mean Corpuscular Volume 83.4 fL (80.0-94.0); Mean Platelet Volume 10.9 fL (7.4-10.4); Platelet Count 230 10^3/uL (130-400); Red Blood Cell Count 3.26 10^6/uL (4.70-6.10); Red Cell Dist. Width 13.8 % (11.5-14.5); White Blood Cell Count 19.4 10^3/uL (4.8-10.8)
[2024-07-04 05:25] LABS: Blood Urea Nitrogen 40 mg/dl (9-20); Calcium 8.5 mg/dl (8.4-10.2); Carbon Dioxide 22 mmol/L (22-30); Chloride 108 mmol/L (98-107); Estimated Creatinine Clearance 63 ml/min; Glucose 131 mg/dl (70-99); Magnesium 2.3 mg/dl (1.6-2.3); Potassium 4.6 mmol/L (3.5-5.1); Sodium 140 mmol/L (135-145); eGFR 46.44
[2024-07-04] MEDS: FLEXBUMIN 50 IV ×3 (05:32→21:38)
[2024-07-04] MEDS: CALCIUM GLUCONATE 100 IV (05:33)
[2024-07-04] MEDS: TYLENOL 1000 MG PO ×3 (05:35→21:38)
--- NOTE | 2024-07-04 06:06 | W.PN.CT ---
Today's Communication / Plan
-
-pod #1
-no significant issues overnight
-mvO2 60.4. Drips: Insulin, Levo 6 in 12/24 hrs
-CT outputs: 2 meds 110/165, 2 pleur 120/220 in 12/24 hrs
-follow Cr - 1.7 today (1.4 preop). Avoid Toradol
-long Qtc 511 ms - follow, check ECG in am
-wean off drips, then deline
-continue insulin
-current meds (ASA, Plavix, Lipitor, Lopressor, Amio, Feosol, Protonix)
-encourage IS, OOB
Assessment / Plan
-
- s/p CABG x 5 (BARTOLO to LAD, GSV to D1, sGSV to OM1-OM4, GSV to RPDA); Endoscopic harvest/prep of RLE GSV; ELAA [45mm AtriClip] by Dr. Engle on 07/03/24, pod #1
- Intraop SATISH: LVEF 55-60%, no regional wma. The left atrial appendage is no longer visible with color Doppler confirming the absence of flow. The mitral regurgitation is mild in severity postop
- Multi-vessel CAD including RESISTANCE BRAZER of LAD and RCA
- Class 3 obesity (BMI 38)
- HTN/HLD
- DM II (HgA1c 13.9)
- Former smoker
- Small lung nodules on CT
- Hx PNA
- OA/ lumbar DDD
- Psoriasis
- CKD 3a - Cr 1.4 preop
- Acute postop blood loss anemia- stable without transfusion
- Acute postop atelectasis
- Acute postop hypovolemia with subsequent hypervolemia
- CANDIS on CKD.
- Suspected acute postop pericarditis/+rub
Discussed patient care with: Nursing and Care Team
Subjective
-
Date of Service: July 03, 2024
Objective Data
-
Lab Results
07/03/24 18:32
07/03/24 14:48
PT 17.1 Sec (11.4-14.6) H 07/03/24 14:48
INR 1.34 07/03/24 14:48
APTT 31.8 Sec (23.4-35.0) 07/03/24 14:48
Vital Signs
Vital Signs
Temp Pulse Resp BP Pulse Ox
98.2 F 74 14 81/64 100
07/03/24 21:00 07/03/24 21:55 07/03/24 21:55 07/03/24 21:00 07/03/24 21:55
CT Intake/Output/Weight
07/03/24 07/03/24 07/04/24
06:59 18:59 06:59
Intake Total 994.4 / 2063.7 1069.3 / 2063.7
Output Total 420 / 700 280 / 700
Balance 574.4 / 1363.7 789.3 / 1363.7
SaO2: 100
Physical Exam
-
General: Awake and AOx3
Cardiovascular: Regular rate & rhythm, No Murmurs and Rub
Respiratory: Decreased Breath Sounds
Sternum: Stable
Incision: Clean, Dry and Intact
Extremities: No Edema
Abdomen: soft, nondistended, nontender, + decreased bowel sounds
Data Reviewed
-
Lab Results: Results Reviewed
Medications: Active Meds Reviewed
Chest X-Ray: Report Reviewed and Image Reviewed
ECG: Report Reviewed and Image Reviewed
[2024-07-04 06:20] LABS: Glucose - Point of Care 128 mg/dl (70-99)
[2024-07-04] MEDS: ANCEF 5 IV ×3 (06:22→14:56)
--- NOTE | 2024-07-04 06:45 | PTCARENOTE ---
Labs sent. CXR completed. EKG done and shown to PA. Bed weight done. Albumin 25% IV x 1 per order. Ca Gluconate 2 gm IV x 1 per order. Levo up to 7 mcg/min briefly. Down to 6 mcg/min. BP 100-120's systolic.
[2024-07-04] MEDS: NOVOLIN R INSULIN INFUSION 100 IV ×2 (07:20→22:22)
--- NOTE | 2024-07-04 07:37 | PN.DE.MGMTRT ---
Insulin Management
- -
07/04/2024 Diabetes Management Consult Follow up
Patient admitted for scheduled CABG 07/03. PMH multivessel CAD, HTN, HLD, GERD, diabetes, obesity, asthma, psoriasis. Prior to admission was taking 1000 mg metformin BID, Tresiba 8 units daily, glimepiride 2 mg daily.
Patient know to me from admission 06/11 with A1C 13.9%.
POD 1 s/p CABG x 5. Doing well. Awakens easily, is alert and oriented but quickly falls back to sleep, discussed diabetes care for today with insulin infusion.
Patient out of OR ~ 1448; receiving critical care glycemic protocol insulin infusion, requiring 4 to 4.5 units of insulin per hour. Will continue insulin infusion today and assess for readiness to transition 07/05.
Will follow.
Discussed with nurse.
Diabetes History
- -
Type of Diabetes: 2
Pre-Admission Diabetes Regimen
07/03/24 07/04/24
14:48 03:52
Creatinine 1.4 H 1.7 H
Insulin Pump Settings
IP Diabetes Regimen
07/03/24 07/03/24 07/03/24
14:48 15:53 17:01
Glucose 193 H
POC Glucose 187 H 164 H 151 H
07/03/24 07/03/24 07/03/24
18:02 19:00 20:46
Glucose
POC Glucose 133 H 133 H 133 H
07/03/24 07/04/24 07/04/24
23:54 00:52 01:20
Glucose
POC Glucose 116 H 138 H 123 H
07/04/24 07/04/24 07/04/24
03:09 03:52 04:07
Glucose 131 H
POC Glucose 138 H 114 H
07/04/24
06:19
Glucose
POC Glucose 128 H
Meal type: Dinner
Meal type: Dinner
Patient Education
--- NOTE | 2024-07-04 08:10 | W.PN.ANS.POP ---
Anesthesia Post Operative
- Anesthesia Post Op Note
Vital Signs Stable-See Nursing Note: Yes
Airway Patent: Yes
Adequate Pain Control: Yes
Change in Mental Status: No
Current Postoperative Nausea & Vomiting: No
Anesthesia Complications: No
General Anesthetic Recall: No
Unplanned Admission: No
Post Op Hydration Adequate: Yes
- -
Pt doing well, VSS no anesthesia c/o at time of post op visit.
[2024-07-04] MEDS: ADVAIR HFA 115/21 MCG INHALER 2 PUFF INH ×2 (08:27→19:23)
--- NOTE | 2024-07-04 08:47 | W.PN.CARDCBS ---
Addendum entered and electronically signed by Chandan López DO 07/04/24 10:03:
I saw and examined the patient.
The Gum Machine Filler's note was reviewed and I agree with the note.
Comment:
Plan:
Cont post op care
Wean IV Levo as able
CT care as per CT surgery
Remains sinus
Cont DAPT
Original Note:
Today's Communication / Plan
-
continue post op care, pain mgmt
in SR
Impression / Plan
-
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
Assessment:
MV CAD s/p CABG x 5 BARTOLO to LAD, GSV to D1, sGSV to OM1-OM4, GSV to RPDA, FÁTIMA clip 07/03/24
Poorly controlled diabetes with hgbA1c 13.9%
HTN
HLD
GERD
Asthma
Obesity
FH CAD
Echo 06/11/24: EF 55 to 60%, mild concentric LVH, no significant valvular pathology, no regional wall motion abnormalities
Plan:
-s/p CABG x 5 BARTOLO to LAD, GSV to D1, sGSV to OM1-OM4, GSV to RPDA, FÁTIMA clip 07/03/24
-c/o post op pain, continue pain mgmt
-on levo@6, wean as able. possible concern for vagal mechanism for hypotension noted
-EKG SR with prolonged QTc, follow
-wean supp O2 as able
-hgb 9.4. continue asa, plavix
-Cr 1.7 on 07/04, was 1.4 preop. monitor.
-needs strict glucose control moving forward, has been poorly controlled with recent hgbA1c of 13.9%. 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
-was on toprol 25mg daily and lisinopril 10mg daily preop. will resume OP regimen as BP allows
-continue post op care
-d/w nursing
Progress Note - Teaching Music Lessons
Subjective
Date of Service: July 04, 2024
Complains of postoperative pain
Objective
Labs:
07/04/24 03:52
07/04/24 03:52
Labs
Hgb 9.4 g/dL (13.0-18.0) L 07/04/24 03:52
Hct 27.2 % (39.0-52.0) L 07/04/24 03:52
Plt Count 230 10^3/uL (130-400) 07/04/24 03:52
PT 17.1 Sec (11.4-14.6) H 07/03/24 14:48
INR 1.34 07/03/24 14:48
APTT 31.8 Sec (23.4-35.0) 07/03/24 14:48
Sodium 140 mmol/L (135-145) 07/04/24 03:52
Potassium 4.6 mmol/L (3.5-5.1) 07/04/24 03:52
BUN 40 mg/dl (9-20) H 07/04/24 03:52
Creatinine 1.7 mg/dL (0.7-1.3) H 07/04/24 03:52
Glucose 131 mg/dl (70-99) H 07/04/24 03:52
Vital Signs and I&O:
Vital Signs
Temp Pulse Resp BP Pulse Ox
98.5 F 82 18 114/65 99
07/04/24 03:00 07/04/24 08:28 07/04/24 08:28 07/04/24 06:00 07/04/24 08:28
Vital Signs
Temp Pulse Resp BP Pulse Ox
98.5 F 82 18 114/65 99
07/04/24 03:00 07/04/24 08:28 07/04/24 08:28 07/04/24 06:00 07/04/24 08:28
Intake & Output
07/02/24 07/03/24 07/04/24 07/05/24
07:59 07:59 07:59 07:59
Intake Total 2622.2 / 2622.2
Output Total 1270 / 1270
Balance 1352.2 / 1352.2
Physical Exam
Physical Exam
GEN: No distress, awake, lethargic, oriented x3. on supp O2
HEENT: supple, anicteric, mmm, eomi
LUNGS: Decreased BS at bases, no wheezes
CV: Reg, S1/S2, no murmur
EXT: No cyanosis, clubbing, edema
NEURO: Gross non-focal
SKIN: Warm, pink, dry. No rash. Sternotomy dressing c/d/i. CTs in place
: harry
[2024-07-04] MEDS: PLAVIX 75 MG PO (08:57)
[2024-07-04] MEDS: VITAMIN C 500 MG PO (08:57)
[2024-07-04] MEDS: PROTONIX 40 MG PO (08:57)
[2024-07-04] MEDS: ROXICODONE 5 MG PO ×3 (08:57→18:14)
[2024-07-04] MEDS: NEURONTIN 100 MG PO ×3 (08:57→21:38)
[2024-07-04] MEDS: FEOSOL 325 MG PO (08:57)
[2024-07-04] MEDS: LIPITOR 80 MG PO (08:58)
[2024-07-04] MEDS: SENOKOT-S 1 TABLET PO ×2 (08:58→20:22)
[2024-07-04] MEDS: MAGNESIUM OXIDE 500 MG PO (08:58)
[2024-07-04] MEDS: LIDOCAINE 4% PATCH 1 PATCH TOPICAL (08:59)
[2024-07-04] MEDS: LOW STRENGTH ASPIRIN 81 MG PO (08:59)
[2024-07-04] MEDS: BACTROBAN 2% OINTMENT 1 APPLIC NASAL ×2 (08:59→20:22)
[2024-07-04] MEDS: LOPRESSOR PO (08:59)
[2024-07-04 09:09] LABS: Glucose - Point of Care 140 mg/dl (70-99)
--- NOTE | 2024-07-04 09:31 | PTCARENOTE ---
Assumed care of patient at 0700. Pt is awake, alert, and oriented. Pt with complaints of sternal pain, PRN Roxicodone administered per order. Pt remains SR with HR 80's-90's. BP 104/53 MAP 66 via Boomer. CVP 9. Pulse oximetry 92% on room air.
Mediastinal chest tubes and left/right pleural chest tubes in place, no sign of air leak or crepitus, drainage serosanguineous. Bowel sounds hypoactive. Remains on insulin gtt per glycemic protocol. Scott catheter remains in place at this time.
Midsternal incision with post-surgical dressing in place. Right groin puncture intact with surgical adhesive, BEET TOPPER. Right leg incision with HERMAN wrap overlay in place. Right IJ cordis in place with SLIC. Remains on Levo, now titrated to 2mcg/min.
--- NOTE | 2024-07-04 10:49 | CM ---
Chart reviewed. Patient is independent of ADLS, lives with his in a split level home, [address], 0 DME. Plan is for the patient to return home with CT Transitional RN. CM to follow
--- NOTE | 2024-07-04 11:30 | PTCARENOTE ---
Remains on Levo gtt at 2mcg/min. BP 116/56 MAP 73. Pulse oximetry 95% on room air. Pt tolerating PO diet.
[2024-07-04] MEDS: NOVOLOG FLEXPEN SC ×2 (11:54→16:20)
[2024-07-04 11:59] LABS: Glucose - Point of Care 121 mg/dl (70-99)
[2024-07-04 11:59] LABS: Glucose - Point of Care 117 mg/dl (70-99)
--- NOTE | 2024-07-04 12:30 | W.PN.INTV ---
Today's Communication / Plan
Recommendations
- Titrate Levophed to a MAP of above 65
- Monitor urine output closely, check renal function in a.m.
- Continue current dose of Advair and as needed albuterol
Assessment
-
Patient is a very pleasant 59-year-old gentleman who was admitted to [facility] in the end of May this year for chest discomfort with shortness of breath. He was ruled out to have acute myocardial infarction and further workup included
an echocardiogram and a stress test. Ischemia was suggested by stress test which led to cardiac catheterization which showed multivessel coronary artery disease and patient was referred to CT surgery for consideration of coronary artery bypass
graft.
Patient is a 59-year-old gentleman with newly detected multivessel coronary artery disease, s/p CABG x 5, left atrial appendage exclusion POD #1
Titrate off pressors per protocol, currently on Levophed @2
ECHO reviewed with normal EF
PA catheter removed,
Management of chest tubes per primary service
Extubated, on nasal canula, saturating well. 7.38, 38, 182
CXR with LLL subsegmental atelectasis
Encouraged incentive spirometry, OOB/ambulation/early mobility
Advance diet as tolerated
GI prophylaxis: Patient currently on Protonix
Monitor critical I/O's
Hb/platelets postoperatively mild expected downtrend
Trend CBC for now
Can transfuse if indicated for Hb <7, plt <50 in surgical patients
DVT prophylaxis including SCDs
Insulin protocol initiated and ongoing, per protocol
Transition to SQ/off as indicated per team
Other medical co-morbidities:
-Asthma (Eosinophil count 200-400), continue Advair and as needed albuterol. No wheezing on exam today
-DM.
-HTN. Metoprolol ordered, currently on levophed @ 2
-HLD. High-dose statins
-GERD. On PPI
-CKD stage III. Mild worsening of Cr to 1.7. Continue Levophed to keep MAP >65. Labs in AM. Strict I/O.
Critical Care time 43 mins -- The patient is admitted for acute critical illness for the treatment of vital organ failure and/or prevention of further life-threatening conditions. Total care includes time spent in review of history, physical exam,
medications, hemodynamic/ventilator parameters, laboratory data, imaging and discussion with house staff, pharmacy, respiratory therapy, back shoe cutter, and nursing.
Data:
Spirometry 06/2024: FEV1 96% of predicted, FVC 104% of predicted, ratio 71. TLC 107% predicted. Normal spirometry, lung volumes and diffusion capacity.
SATISH 06/2024: Normal biventricular function with no wall motion abnormalities. The LVEF is
60-65% by visual inspection.
Trace mitral regurgitation.
Normal left atrial appendage.
Normal aortic valve.
Normal tricuspid valve.
Normal aorta and aortic root.
Cardiac Cath 06/2024: 1. Multivessel coronary artery disease with chronic occlusions of the LAD and proximal RCA. The circumflex also has 80% stenosis in the mid vessel
2. Preserved LV systolic function
CXR 05/2024: Unremarkable
Subjective Dataa
Subjective Data
Date of Service:
Date of Service: July 04, 2024
Subjective:
Patient comfortably lying in bed in no acute distress.
Review of Systems
Genitourinary: Other (All 14 systems reviewed and negative except as stated above in the history of present illness.)
Objective Data
Data Reviewed
Vital Signs / I&O / Oxygen:
Vital Signs
Temp Pulse Resp BP Pulse Ox
98.5 F 97 20 116/56 95
07/04/24 08:00 07/04/24 11:48 07/04/24 11:48 07/04/24 11:48 07/04/24 11:48
Intake and Output
07/03/24 07/04/24 07/05/24
06:59 06:59 06:59
Intake Total 2622.2 / 2668.7 207.5 / 207.5
Output Total 1270 / 1340 380 / 380
Balance 1352.2 / 1328.7 -172.5 / -172.5
SaO2 [CPAP] 100
SaO2 [SIMV] 100
SaO2 95
Nasal Cannula flow liters per 4
minute
Physical Exam
General: Comfortable
HEENT: Normocephalic
Cardiovascular: S1-S2 and Regular Rhythm
Respiratory: Clear and Other (No wheezing on exam)
GI: Soft and Non Distended
Neurology: Awake
Labs/Micro/Reports
Lab Data
07/04/24 03:52
07/04/24 03:52
Laboratory Results
07/03/24 07/03/24 07/03/24
14:48 20:41 23:39
PT 17.1 H
INR 1.34
APTT 31.8
pH 7.34 L 7.33 L 7.39
pCO2 39 39 35
pO2 115 H 231 H 159 H
HCO3 21.0 20.6 L 21.2
O2 Delivery Level 6l 4l
07/04/24 07/04/24
01:00 01:13
PT
INR
APTT
pH Cancelled 7.38
pCO2 Cancelled 38
pO2 Cancelled 182 H
HCO3 Cancelled 22.5
O2 Delivery Level Cancelled 4l nc
[2024-07-04] MEDS: FLEXERIL 5 MG PO (12:58)
[2024-07-04 13:04] LABS: Glucose - Point of Care 118 mg/dl (70-99)
[2024-07-04] MEDS: NSS IV (14:53)
[2024-07-04 15:11] LABS: Glucose - Point of Care 111 mg/dl (70-99)
--- NOTE | 2024-07-04 15:30 | PTCARENOTE ---
Pt off of Levo gtt, BP 108/56 MAP 68. CVP 7. Scott catheter d/c'd, pt DTV. Pt assisted OOB to chair, tolerated well. Pleural chest tubes dumped 145mL, CT PRASHANT Lori aware.
[2024-07-04 17:14] LABS: Glucose - Point of Care 142 mg/dl (70-99)
[2024-07-04] MEDS: ROXICODONE PO (17:59)
[2024-07-04 18:04] LABS: Glucose - Point of Care 108 mg/dl (70-99)
[2024-07-04] MEDS: NOVOLOG FLEXPEN 8 UNITS SC (18:07)
[2024-07-04 18:54] LABS: Glucose - Point of Care 96 mg/dl (70-99)
--- NOTE | 2024-07-04 19:20 | PTCARENOTE ---
Patient received from RN @1900. Patient sitting in chair comfortably w/ call ramirez in reach. AOx4 w/ flat affect. Sinus tachycardia BP 96/59 HR 117. Heart sounds audible. Radial and pedal pulses present but weak. Generalized trace anasarca
noted. POX 98% RA. Lungs clear but diminished in the bases. CTx4. 2x mediastinal chest tubes and R/L pleural set to -20 wall suction draining serosanguineous fluid WNL. No crepitus, tidaling, or air leaks noted. Due to void @ 1930. Bowel
sounds hypoactive. Sternal dressing dry and intact. Right groin puncture approximated MANJINDER. Right leg incision approximated TEACHING MANAGER. RIJ cordis w/ slick patent and intact. Left Radial A-line leveled and zeroed. Insulin infusing per glycemic
protocol.
[2024-07-04 20:08] LABS: Glucose - Point of Care 172 mg/dl (70-99)
[2024-07-04] MEDS: LOPRESSOR 12.5 MG PO (20:23)
--- NOTE | 2024-07-04 20:23 | PTCARENOTE ---
Hx of soft BP. Current BP 116/49. Lopressor given per CT KIA Feng
--- NOTE | 2024-07-04 21:05 | PTCARENOTE ---
Bladder scan for 167mL. A-Line and [place] removed per CT KIA Feng
[2024-07-04 21:12] LABS: Glucose - Point of Care 192 mg/dl (70-99)
[2024-07-04 22:02] LABS: Glucose - Point of Care 208 mg/dl (70-99)
[2024-07-04] MEDS: PACERONE 200 MG PO (22:22)
--- NOTE | 2024-07-04 23:00 | PTCARENOTE ---
Brief period of Hypotension while in chair. BP 78/58. Transitioned patient from chair to bed. Laid flat and BP returned to normal. BP 104/65.
[2024-07-04 23:06] LABS: Glucose - Point of Care 141 mg/dl (70-99)
[2024-07-05] VITALS (41 sets, daily range): BP systolic 67–146; BP diastolic 41–88; PULSE 118; O2SAT 92–94; BMI 39.6
--- NOTE | 2024-07-05 00:17 | PTCARENOTE ---
Bladder scan for 370mL. Patient states he might have urge to void soon. CT ROSS LIFT OPERATOR Rashard notified.
[2024-07-05 01:05] LABS: Glucose - Point of Care 97 mg/dl (70-99)
--- NOTE | 2024-07-05 01:36 | W.PN.CT ---
Today's Communication / Plan
-
-pod #2
-no significant issues overnight, BP soft but at goal with albumin given x3
-Hgb 9.4->7.5, drop noted across all cell lines s/p albumin
-remains on insulin gtt
-CT outputs: 2 meds 50/175 2 pleur 105/530 in 12/24 hrs
-follow Cr - 1.6 today (1.4 preop), UOP 575/920 in 12/24 hrs. Avoid Toradol
-current meds (ASA, Plavix, Lipitor, Lopressor 12.5, Amio, Feosol, Protonix, insulin gtt, Advair)
-multimodal pain management
-encourage IS, OOB
Assessment / Plan
-
- s/p CABG x 5 (BARTOLO to LAD, GSV to D1, sGSV to OM1-OM4, GSV to RPDA); Endoscopic harvest/prep of RLE GSV; ELAA [45mm AtriClip] by Dr. Engle on 07/03/24, pod #2
- Intraop SATISH: LVEF 55-60%, no regional wma. The left atrial appendage is no longer visible with color Doppler confirming the absence of flow. The mitral regurgitation is mild in severity postop
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
- Class 3 obesity (BMI 38)
- HTN/HLD
- DM II (HgA1c 13.9)
- Former smoker
- Small lung nodules on CT
- Hx PNA
- OA/ lumbar DDD
- Psoriasis
- CKD 3a - Cr 1.4 preop
- Acute postop blood loss anemia- stable without transfusion
- Acute postop atelectasis
- Acute postop hypovolemia with subsequent hypervolemia
- CANDIS on CKD.
- Suspected acute postop pericarditis/+rub
Subjective
-
Date of Service: July 05, 2024
Objective Data
-
PT 17.1 Sec (11.4-14.6) H 07/03/24 14:48
INR 1.34 07/03/24 14:48
APTT 31.8 Sec (23.4-35.0) 07/03/24 14:48
Vital Signs
Vital Signs
Temp Pulse Resp BP Pulse Ox
97.7 F 96 15 102/61 99
07/05/24 00:06 07/05/24 01:00 07/05/24 01:00 07/05/24 01:00 07/05/24 01:00
CT Intake/Output/Weight
07/04/24 07/04/24 07/05/24
06:59 18:59 06:59
Intake Total 1627.8 / 2668.7 418.0 / 581.9 163.9 / 581.9
Output Total 850 / 1340 895 / 1005 110 / 1005
Balance 777.8 / 1328.7 -477.0 / -423.1 53.9 / -423.1
SaO2: 99
Physical Exam
-
General: Awake and Oriented
Cardiovascular: Regular rate & rhythm, Rub and No Gallop
Respiratory: Clear, Equal and Decreased Breath Sounds
Sternum: Stable
Incision: Clean, Dry and Intact
Extremities: Edema +1 and No Erythema
Data Reviewed
-
Lab Results: Results Reviewed
Medications: Active Meds Reviewed
Chest X-Ray: Report Reviewed
ECG: Report Reviewed
[2024-07-05] MEDS: ROXICODONE 5 MG PO ×5 (02:14→23:54)
[2024-07-05] MEDS: ProAIR HFA INHALER 2 PUFF INH ×2 (02:36→07:31)
[2024-07-05 03:15] LABS: Glucose - Point of Care 103 mg/dl (70-99)
--- NOTE | 2024-07-05 03:25 | PTCARENOTE ---
Bladder scanned for 404mL. Attempted to sit on side of bed and void. No urine voided. Straight cath per CT PARKS WORKER Rashard. See Worklist for details.
[2024-07-05 04:51] LABS: Hematocrit 21.9 % (39.0-52.0); Hemoglobin 7.5 g/dL (13.0-18.0); Mean Corp Hgb Conc. 34.2 g/dL (33.0-37.0); Mean Corpuscular Hgb 29.5 pg (27.0-31.0); Mean Corpuscular Volume 86.2 fL (80.0-94.0); Mean Platelet Volume 11.5 fL (7.4-10.4); Platelet Count 145 10^3/uL (130-400); Red Blood Cell Count 2.54 10^6/uL (4.70-6.10); Red Cell Dist. Width 14.3 % (11.5-14.5); White Blood Cell Count 13.2 10^3/uL (4.8-10.8)
[2024-07-05 04:58] LABS: Glucose - Point of Care 89 mg/dl (70-99)
[2024-07-05 05:10] LABS: Blood Urea Nitrogen 41 mg/dl (9-20); Calcium 8.4 mg/dl (8.4-10.2); Carbon Dioxide 25 mmol/L (22-30); Chloride 105 mmol/L (98-107); Estimated Creatinine Clearance 68 ml/min; Glucose 94 mg/dl (70-99); Magnesium 2.3 mg/dl (1.6-2.3); Sodium 139 mmol/L (135-145); eGFR 49.94
[2024-07-05] MEDS: TYLENOL 1000 MG PO ×2 (06:37→20:50)
[2024-07-05 07:20] LABS: Glucose - Point of Care 134 mg/dl (70-99)
--- NOTE | 2024-07-05 07:30 | PTCARENOTE ---
Assumed care of patient from maintenance technician 3rd shift RN, AAO x 3 . Flat anxious affect, ST on monitor. 2L while in bed 98%, IS reviewed. Very shallow breaths d/t anxiety/pain. Chest tubes x 4 to - 20 cm suction. No air leak or crepitus noted. Abdomen
obese, with positive bowel sounds. Due to void. Surgical sites c,d,i. pulses palpable. Plan for day discussed.
[2024-07-05] MEDS: ADVAIR HFA 115/21 MCG INHALER 2 PUFF INH (07:31)
--- NOTE | 2024-07-05 08:12 | PN.DE.MGMTRT ---
Insulin Management
- -
07/05/2024: Diabetes Management Follow up
Patient admitted for scheduled CABG 07/03. PMH multivessel CAD, HTN, HLD, GERD, diabetes, obesity, asthma, psoriasis. Prior to admission was taking 1000 mg metformin BID, Tresiba 8 units daily, glimepiride 2 mg daily. Patient known to me from
admission 06/11 with A1C 13.9%.
POD #2 s/p CABG x 5. Doing well. Awake, alert, oriented, sitting up in chair, offers no complaints, able to discuss diabetes care plan
Patient remains on critical care glycemic protocol insulin infusion, requiring 0.6 to 8 units of insulin per hour. Cr 1.6, eGFR 49.94
Will transition off insulin infusion this afternoon to SQ insulin. Will hold Metformin and Glimepiride due to CANDIS
Give Lantus 15 units @ 1300 and turn drip off 1 hr after. Start AC NovoLog 5 units, 1st dose at dinner, with moderate corrective.
Will cont to follow. Discussed with nurse.
Patient was provided with Contour Next glucose monitor during his past hospital stay and states that he has enough supplies at home.
Diabetes History
- -
Type of Diabetes: 2 requiring insulin
Pre-Admission Diabetes Regimen
07/05/24
04:20
Creatinine 1.6 H
Insulin Pump Settings
IP Diabetes Regimen
07/04/24 07/04/24 07/04/24
09:07 10:27 11:48
Glucose
POC Glucose 140 H 121 H 117 H
07/04/24 07/04/24 07/04/24
13:02 15:07 17:09
Glucose
POC Glucose 118 H 111 H 142 H
07/04/24 07/04/24 07/04/24
18:02 18:51 20:06
Glucose
POC Glucose 108 H 96 172 H
07/04/24 07/04/24 07/04/24
21:11 22:00 23:04
Glucose
POC Glucose 192 H 208 H 141 H
07/05/24 07/05/24 07/05/24
01:04 03:13 04:20
Glucose 94
POC Glucose 97 103 H
07/05/24 07/05/24
04:55 07:19
Glucose
POC Glucose 89 134 H
Meal type: Dinner
Meal type: Breakfast
Amount consumed: 40%
Amount consumed: 10%
Patient Education
[2024-07-05] MEDS: BUMEX 2 MG IV (08:33)
[2024-07-05] MEDS: NOVOLOG FLEXPEN 8 UNITS SC (08:34)
[2024-07-05] MEDS: FEOSOL 325 MG PO (08:35)
[2024-07-05] MEDS: PROTONIX 40 MG PO (08:35)
[2024-07-05] MEDS: PLAVIX 75 MG PO (08:35)
[2024-07-05] MEDS: LOW STRENGTH ASPIRIN 81 MG PO (08:35)
[2024-07-05] MEDS: PACERONE 200 MG PO ×4 (08:35→21:22)
[2024-07-05] MEDS: NEURONTIN 100 MG PO (08:35)
[2024-07-05] MEDS: LIPITOR 80 MG PO (08:35)
[2024-07-05] MEDS: BACTROBAN 2% OINTMENT 1 APPLIC NASAL ×2 (08:36→20:50)
[2024-07-05] MEDS: VITAMIN C 500 MG PO (08:36)
[2024-07-05] MEDS: LIDOCAINE 4% PATCH TOPICAL (08:36)
[2024-07-05] MEDS: SENOKOT-S 1 TABLET PO ×2 (08:36→20:50)
[2024-07-05 09:10] LABS: Glucose - Point of Care 172 mg/dl (70-99)
--- NOTE | 2024-07-05 09:40 | PTCARENOTE ---
Chest tubes removed this am. Pt tolerated w/o issue. Assist x 1 oob to chair. Tolerated well. VSS
--- NOTE | 2024-07-05 10:31 | CM ---
Chart reviewed. Patient OOB sitting in the chair. Patient is independent of ADLS, lives with his in a split level home, [address], 0 DME. Plan is for the patient to return home with CT Transitional RN. CM to follow
[2024-07-05 11:03] LABS: Glucose - Point of Care 188 mg/dl (70-99)
[2024-07-05] MEDS: VENTOLIN NEBULES 2.5 MG INH ×3 (11:15→19:54)
[2024-07-05] MEDS: PULMICORT 0.5 MG INH ×2 (11:15→19:54)
--- NOTE | 2024-07-05 11:27 | W.PN.INTV ---
Today's Communication / Plan
Recommendations
- Hold Advair, start scheduled budesonide nebulized every 12, continue as needed albuterol
- Incentive spirometry, increase activity as tolerated
- No indication for steroids or antibiotics for now
Assessment
-
Patient is a very pleasant 59-year-old gentleman who was admitted to [facility] in the end of May this year for chest discomfort with shortness of breath. He was ruled out to have acute myocardial infarction and further workup included
an echocardiogram and a stress test. Ischemia was suggested by stress test which led to cardiac catheterization which showed multivessel coronary artery disease and patient was referred to CT surgery for consideration of coronary artery bypass
graft.
Patient is a 59-year-old gentleman with newly detected multivessel coronary artery disease, s/p CABG x 5, left atrial appendage exclusion POD #2
Titrated off pressors
ECHO reviewed with normal EF
PA catheter removed, cordis in place
Management of chest tubes per primary service
Extubated, on nasal canula, saturating well. 7.38, 38, 182 (07/04)
CXR with LLL subsegmental atelectasis
Encouraged incentive spirometry, OOB/ambulation/early mobility
Advance diet as tolerated
GI prophylaxis: Patient currently on Protonix
Monitor critical I/O's
Hb/down trending post-op. Management per CT surgery
Trend CBC for now
Can transfuse if indicated for Hb <7, plt <50 in surgical patients
DVT prophylaxis including SCDs
Insulin protocol initiated and ongoing, per protocol
Transition to SQ/off as indicated per team
Other medical co-morbidities:
-Asthma (Eosinophil count 200-400), LLL atelectasis. Patient feels he is not able to take deep enough breath. Hold Advair and start u nebulized BID. continue PRN Albuterol Nebz. No wheezing on exam. No need for steroids. Atelectasis on CXR
persisting, encouraged incentive spirometry. Activity as tolerated.
-DM.
-HTN. Metoprolol ordered
-HLD. High-dose statins
-GERD. On PPI
-CKD stage III. Mild worsening of Cr to 1.7, monitor. Avoid nephrotoxic agents.
D/w RN and RT service
Critical Care time 45 mins -- The patient is admitted for acute critical illness for the treatment of vital organ failure and/or prevention of further life-threatening conditions. Total care includes time spent in review of history, physical exam,
medications, hemodynamic/ventilator parameters, laboratory data, imaging and discussion with house staff, pharmacy, respiratory therapy, gm[employer]sv[employer] global publisher business, and nursing.
Data:
Spirometry 06/2024: FEV1 96% of predicted, FVC 104% of predicted, ratio 71. TLC 107% predicted. Normal spirometry, lung volumes and diffusion capacity.
SATISH 06/2024: Normal biventricular function with no wall motion abnormalities. The LVEF is
60-65% by visual inspection.
Trace mitral regurgitation.
Normal left atrial appendage.
Normal aortic valve.
Normal tricuspid valve.
Normal aorta and aortic root.
Cardiac Cath 06/2024: 1. Multivessel coronary artery disease with chronic occlusions of the LAD and proximal RCA. The circumflex also has 80% stenosis in the mid vessel
2. Preserved LV systolic function
CXR 05/2024: Unremarkable
Subjective Dataa
Subjective Data
Date of Service:
Date of Service: July 05, 2024
Subjective:
Patient sitting in chair, no acute distress. Feels as if he is not able to take a deep enough breath. Denies any wheezing or cough however.
Review of Systems
Genitourinary: Other (All 14 systems reviewed and negative except as stated above in the history of present illness.)
Objective Data
Data Reviewed
Vital Signs / I&O / Oxygen:
Vital Signs
Temp Pulse Resp BP Pulse Ox
98.4 F 118 26 101/58 98
07/05/24 08:00 07/05/24 09:07 07/05/24 09:00 07/05/24 09:07 07/05/24 08:00
Intake and Output
07/04/24 07/05/24 07/06/24
06:59 06:59 06:59
Intake Total 2622.2 / 2668.7 641.6 / 641.6 378 / 378
Output Total 1270 / 1340 1630 / 1630
Balance 1352.2 / 1328.7 -988.4 / -988.4 378 / 378
SaO2 [CPAP] 100
SaO2 [SIMV] 100
SaO2 98
Nasal Cannula flow liters per 2
minute
Physical Exam
General: Comfortable
HEENT: Normocephalic
Cardiovascular: S1-S2 and Regular Rhythm
Respiratory: Clear and Other (No wheezing on exam)
GI: Soft and Non Distended
Neurology: Awake
Labs/Micro/Reports
Lab Data
07/05/24 04:20
07/05/24 04:20
[2024-07-05] MEDS: LOPRESSOR PO (11:35)
--- NOTE | 2024-07-05 11:37 | PTCARENOTE ---
PT hypotensive sitting in the chair and working with cardiac rehab. Pt c/o dizziness. BP 70's systolic. Feet raised , bp returned to 90's systolic. Dizziness subsided. CT FISHER TROT LINE informed. BB held.
[2024-07-05] MEDS: VENTOLIN NEBULES INH (12:06)
[2024-07-05 12:08] LABS: Glucose - Point of Care 129 mg/dl (70-99)
[2024-07-05] MEDS: LANTUS 0.15 UNITS SC (12:57)
[2024-07-05 13:41] LABS: Glucose - Point of Care 106 mg/dl (70-99)
--- NOTE | 2024-07-05 14:09 | W.PN.CARDCBS ---
Addendum entered and electronically signed by Tyrel Portillo MD 07/05/24 17:12:
I saw and examined the patient.
The Cook House Supervisor's note was reviewed and I agree with the note.
Comment: Briefly, 59-year-old man past medical history of poorly controlled diabetes, hypertension hyperlipidemia who was found to have multivessel CAD and underwent CABG x 5 earlier this week
Resting comfortably in the CVICU at the time of my evaluation
Hemodynamically stable no longer requiring inotrope or pressor support
Appears euvolemic on exam
Maintaining sinus rhythm on review of telemetry
Agree with current cardiac meds�aspirin/Plavix, high intensity statin and amiodarone. Holding on beta-farrukh given marginal blood pressure.
Discussed eventual cardiac rehab
Rest per Jenni Candelario
Original Note:
Today's Communication / Plan
-
getting prbcs for Hgb
off pressors
remains in NSR
cont post op care
Impression / Plan
-
Primary Junior Art Director: Dr. Portillo
Assessment:
MV CAD s/p CABG x 5 BARTOLO to LAD, GSV to D1, sGSV to OM1-OM4, GSV to RPDA, FÁTIMA clip 07/03/24
Poorly controlled diabetes with hgbA1c 13.9%
HTN
HLD
GERD
Asthma
Obesity
FH CAD
Echo 06/11/24: EF 55 to 60%, mild concentric LVH, no significant valvular pathology, no regional wall motion abnormalities
post op SATISH 07/03/2024: EF 60-65%
Plan:
-s/p CABG x 5 BARTOLO to LAD, GSV to D1, sGSV to OM1-OM4, GSV to RPDA, FÁTIMA clip 07/03/24
-off Levophed
-Hgb dropped to 7.5 from 9.4, getting 1 unit prbcs
-telemetry: remains in sinus, HRs 100-110s
-12 lead EKG NSR w/ QT 510msec, QT prolonged, in stable range
-ideally would like to resume beta farrukh, was on Toprol 25 mg preop. Low BP has precluded resuming med.
-remains on Amio postoperatively. No afib noted
possible concern for vagal mechanism for hypotension previously noted
-Creat 1.6, down from 1.7 07/04/2024 (1.4 preop), cont to monitor
-continue asa, plavix
-needs strict glucose control moving forward, has been poorly controlled with recent hgbA1c of 13.9%. Has seen DM LEAD MAN OVER ALL DIES IN PATTERN SHOP
-was on toprol 25mg daily and lisinopril 10mg daily preop. will resume OP regimen as BP allows
-continue post op care
Progress Note - Junior Art Director
Subjective
Date of Service: July 05, 2024
feels fatigued
getting 1 unit prbcs
Objective
Labs:
07/05/24 04:20
07/05/24 04:20
Labs
Hgb 7.5 g/dL (13.0-18.0) L D 07/05/24 04:20
Hct 21.9 % (39.0-52.0) L 07/05/24 04:20
Plt Count 145 10^3/uL (130-400) D 07/05/24 04:20
PT 17.1 Sec (11.4-14.6) H 07/03/24 14:48
INR 1.34 07/03/24 14:48
APTT 31.8 Sec (23.4-35.0) 07/03/24 14:48
Sodium 139 mmol/L (135-145) 07/05/24 04:20
Potassium 4.0 mmol/L (3.5-5.1) 07/05/24 04:20
BUN 41 mg/dl (9-20) H 07/05/24 04:20
Creatinine 1.6 mg/dL (0.7-1.3) H 07/05/24 04:20
Glucose 94 mg/dl (70-99) 07/05/24 04:20
Vital Signs and I&O:
Vital Signs
Temp Pulse Resp BP Pulse Ox
97.5 F 117 18 106/70 96
07/05/24 14:00 07/05/24 14:00 07/05/24 14:00 07/05/24 14:00 07/05/24 12:04
Vital Signs
Temp Pulse Resp BP Pulse Ox
97.5 F 117 18 106/70 96
07/05/24 14:00 07/05/24 14:00 07/05/24 14:00 07/05/24 14:00 07/05/24 12:04
Intake & Output
07/03/24 07/04/24 07/05/24 07/06/24
06:59 06:59 06:59 06:59
Intake Total 2622.2 / 2668.7 641.6 / 641.6 526 / 526
Output Total 1270 / 1340 1630 / 1630 600 / 600
Balance 1352.2 / 1328.7 -988.4 / -988.4 -74 / -74
Physical Exam
Physical Exam
GEN: No distress, awake, Ox3
HEENT: supple, anicteric, mmm
LUNGS: CTA, no wheezes/rales
CV: tachy, Reg, S1/S2, no murmur, no rub
ABD: soft, BS+, NT/ND
EXT: trace LE edema
NEURO: Gross non-focal
SKIN: sternal incision intact with occlusive drsg
[2024-07-05] MEDS: NOVOLOG FLEXPEN SC ×2 (14:34→19:07)
[2024-07-05] MEDS: NSS IV (14:35)
[2024-07-05] MEDS: TYLENOL PO (15:51)
[2024-07-05] MEDS: ProAmatine 5 MG PO (15:52)
[2024-07-05] MEDS: NEURONTIN 300 MG PO ×2 (15:52→20:50)
--- NOTE | 2024-07-05 16:21 | PTCARENOTE ---
BP remains on lower side, denies complaint. PRN Midodrine administered. In much better spirits now after emotional suppport provided. Ambulated approx 100 feet with steady gait. Resting in chair AFter.
[2024-07-05 17:42] LABS: Glucose - Point of Care 341 mg/dl (70-99)
[2024-07-05 17:42] LABS: Glucose - Point of Care 323 mg/dl (70-99)
[2024-07-05] MEDS: NOVOLOG FLEXPEN 5 UNITS SC (17:43)
[2024-07-05] MEDS: NOVOLOG FLEXPEN-MODERATE RESISTANCE 7 UNITS SC (17:43)
--- NOTE | 2024-07-05 20:45 | PTCARENOTE ---
Patient received from RN @1900. Patient sitting in chair comfortably w/ call ramirez in reach. Sinus tachycardia BP 146/78 HR 107. Heart sounds audible. +1 edema noted on upper and lower extremity bilaterally. Weak radial and pedal pulses present
on palpation. Lungs clear and diminished in bases. POX 94% RA. IS 1000. Voiding clear yellow urine. Bowel sounds normoactive. Flatulence but no BM. Sternal dressing dry and intact. Chest tube dressing dry and intact. Right groin puncture
approximated MANAGER ADMINISTRAT[employer] SERVICES. Right leg incision approximated and MANJINDER. RIJ cordis and left PIV patent and intact. CHG cloth bath performed.
[2024-07-05 20:53] LABS: Blood Urea Nitrogen 45 mg/dl (9-20); Calcium 8.3 mg/dl (8.4-10.2); Carbon Dioxide 24 mmol/L (22-30); Chloride 98 mmol/L (98-107); Estimated Creatinine Clearance 68 ml/min; Glucose 311 mg/dl (70-99); Potassium 4.4 mmol/L (3.5-5.1); Sodium 131 mmol/L (135-145); eGFR 49.94
[2024-07-05 20:55] LABS: Glucose - Point of Care 320 mg/dl (70-99)
[2024-07-05] MEDS: NOVOLOG FLEXPEN 10 UNITS SC (21:24)
--- NOTE | 2024-07-05 21:30 | PTCARENOTE ---
Patient blood sugar elevated. CT PA Ed notified. Stat insulin per CT PA Ed.
[2024-07-06] VITALS (32 sets, daily range): BP systolic 60–150; BP diastolic 28–117; PULSE 100; O2SAT 96–99; BMI 40.2
[2024-07-06] MEDS: MUCINEX 600 MG PO ×3 (00:27→20:11)
--- NOTE | 2024-07-06 00:45 | PTCARENOTE ---
Dry cough noted. Patient describes trying to cough up mucus. CT PA Ed notified. Mucinex ordered.
--- NOTE | 2024-07-06 01:03 | W.PN.CT ---
Today's Communication / Plan
-
Plan:
-No major issues overnight. Hemodynamically and neurologically intact
-Noted to be hypotensive and tachycardic postop. Required Midodrine yesterday, BB on hold. Increased Amiodarone to 400 mg TID given postop tachycardia
-Received 1u PRBC yesterday for h/h 7.5/21.9, h/h 8.0/23.5 today
-BP improving, should be able to start low dose Toprol XL today
-Cont. diuresis if BP permits, 24hr U/O 1800 mL
-Monitor postop CANDIS, 1.5 today, peaked @ 1.7, baseline 1.0-1.3. Metformin and Glimepiride on hold
-Diabetes education and management following given AIC of 13.9, started Lantus and Novolog while Metformin and Glimepiride are on hold
-Cont. current meds (ASA, Plavix, Toprol Xl, Amiodarone, Lantus, Novolog)
-D/C cordis
-Wean off of O2
-Encourage use of IS
-OOB into chair/Ambulate
-Home likely tomorrow
Assessment / Plan
-
- s/p CABG x 5 (BARTOLO to LAD, GSV to D1, sGSV to OM1-OM4, GSV to RPDA); Endoscopic harvest/prep of RLE GSV; ELAA [45mm AtriClip] by Dr. Engle on 07/03/24, pod #3
- Intraop SATISH: LVEF 55-60%, no regional wma. The left atrial appendage is no longer visible with color Doppler confirming the absence of flow. The mitral regurgitation is mild in severity postop
- Multi-vessel CAD including GRANT OFFICER of LAD and RCA
- Class 3 obesity (BMI 38)
- HTN/HLD
- DM II (HgA1c 13.9)
- Former smoker
- Small lung nodules on CT
- Hx PNA
- OA/ lumbar DDD
- Psoriasis
- CKD 3a - Cr 1.4 preop
- Acute postop blood loss anemia- stable without transfusion
- Acute postop atelectasis
- Acute postop hypovolemia with subsequent hypervolemia
- CANDIS on CKD.
- Suspected acute postop pericarditis/+rub
Discussed patient care with: Cardiology, Nursing, Respiratory Therapy, Pharmacy and Care Team
Subjective
-
Date of Service: July 06, 2024
Pt c/o mild incisional pain and non-productive cough, otherwise feels well
Objective Data
-
PT 17.1 Sec (11.4-14.6) H 07/03/24 14:48
INR 1.34 07/03/24 14:48
APTT 31.8 Sec (23.4-35.0) 07/03/24 14:48
Vital Signs
Vital Signs
Temp Pulse Resp BP Pulse Ox
98.1 F 96 16 114/74 97
07/06/24 00:58 07/06/24 00:30 07/06/24 00:58 07/06/24 00:00 07/06/24 00:[address] Intake/Output/Weight
07/05/24 07/05/24 07/06/24
06:59 18:59 06:59
Intake Total 223.6 / 641.6 1166 / 1416 250 / 1416
Output Total 735 / 1630 1050 / 1325 275 / 1325
Balance -511.4 / -988.4 -
SaO2: 97 (RA)
Physical Exam
-
General: Awake, Oriented and AOx3
Cardiovascular: Regular rate & rhythm, No Murmurs, No Rub and No Gallop
Respiratory: Decreased Breath Sounds (at bases, otherwise clear)
Sternum: Stable
Incision: Clean, Dry, Intact and Dressing Intact
Extremities: Other (+trace edema)
Data Reviewed
-
Lab Results: Results Reviewed
Medications: Active Meds Reviewed
Chest X-Ray: Report Reviewed and Image Reviewed
ECG: Report Reviewed and Image Reviewed
[2024-07-06 04:28] LABS: Ionized Calcium 1.13 mMOL/L (1.15-1.33)
[2024-07-06 04:29] LABS: Hematocrit 23.5 % (39.0-52.0); Mean Corpuscular Hgb 29.4 pg (27.0-31.0); Mean Corpuscular Volume 86.4 fL (80.0-94.0); Mean Platelet Volume 11.2 fL (7.4-10.4); Platelet Count 153 10^3/uL (130-400); Red Blood Cell Count 2.72 10^6/uL (4.70-6.10); White Blood Cell Count 15.1 10^3/uL (4.8-10.8)
--- NOTE | 2024-07-06 04:45 | PTCARENOTE ---
Labs drawn. Patient weighed. Stood to void w/ brief period of lightheadedness. BP stable
[2024-07-06 04:59] LABS: Blood Urea Nitrogen 43 mg/dl (9-20); Calcium 7.9 mg/dl (8.4-10.2); Carbon Dioxide 27 mmol/L (22-30); Chloride 101 mmol/L (98-107); Estimated Creatinine Clearance 72 ml/min; Glucose 169 mg/dl (70-99); Magnesium 2.2 mg/dl (1.6-2.3); Potassium 4.4 mmol/L (3.5-5.1); Sodium 135 mmol/L (135-145); eGFR 53.96
[2024-07-06] MEDS: VENTOLIN NEBULES 2.5 MG INH ×5 (05:16→18:09)
[2024-07-06] MEDS: CALCIUM GLUCONATE 290 MG IV (05:24)
[2024-07-06] MEDS: NSS 500 IV (05:31)
[2024-07-06] MEDS: TYLENOL 1000 MG PO ×3 (05:37→22:09)
[2024-07-06 07:38] LABS: Glucose - Point of Care 218 mg/dl (70-99)
[2024-07-06] MEDS: NOVOLOG FLEXPEN-MODERATE RESISTANCE 3 UNITS SC ×2 (07:42→17:27)
[2024-07-06] MEDS: NOVOLOG FLEXPEN 5 UNITS SC ×3 (07:42→17:26)
[2024-07-06] MEDS: LANTUS 0.15 UNITS SC (07:43)
[2024-07-06] MEDS: FARXIGA 10 MG PO (07:43)
[2024-07-06] MEDS: BACTROBAN 2% OINTMENT 1 APPLIC NASAL ×2 (07:44→20:11)
[2024-07-06] MEDS: PULMICORT 0.5 MG INH ×2 (07:45→18:09)
[2024-07-06] MEDS: NOVOLOG FLEXPEN SC ×2 (07:48→13:26)
[2024-07-06] MEDS: LASIX 40 MG IV (08:27)
[2024-07-06] MEDS: PROTONIX 40 MG PO (08:27)
[2024-07-06] MEDS: LIPITOR 80 MG PO (08:27)
[2024-07-06] MEDS: NEURONTIN 300 MG PO ×3 (08:27→22:09)
[2024-07-06] MEDS: TOPROL XL 12.5 MG PO ×2 (08:27→20:11)
[2024-07-06] MEDS: PACERONE 400 MG PO (08:28)
[2024-07-06] MEDS: PLAVIX 75 MG PO (08:28)
[2024-07-06] MEDS: FEOSOL 325 MG PO (08:29)
[2024-07-06] MEDS: SENOKOT-S 1 TABLET PO ×2 (08:29→20:11)
[2024-07-06] MEDS: LOW STRENGTH ASPIRIN 81 MG PO (08:29)
[2024-07-06] MEDS: VITAMIN C 500 MG PO (08:29)
[2024-07-06] MEDS: LIDOCAINE 4% PATCH TOPICAL (08:33)
--- NOTE | 2024-07-06 08:46 | PTCARENOTE ---
Received pt from night shift manager RN; pt AAOx3 and resting comfortably in chair; cardiac rehab at bedside; NSR on monitor and VSS; RIJ Cordis and PIV x1 patent; lungs diminished; IS to 1500; hypoactive bowel sounds; pt voiding yellow urine; weak lower
extremity pulses; no edema; all surgical sites C/D/I; see nursing documentation for further details.
--- NOTE | 2024-07-06 09:10 | W.PN.PUL3 ---
Today's Communication / Plan
-
- Continue continue budesonide and as needed albuterol while inpatient, resume Advair at discharge
- Continue continue incentive spirometry
- Recommend outpatient follow-up with pulmonary clinic in about 6 weeks time for pulmonary function testing as well as sleep study
- Pulmonary team will sign off, please call as needed
Assessment
-
Patient is a very pleasant 59-year-old gentleman who was admitted to [facility] in the end of May this year for chest discomfort with shortness of breath. He was ruled out to have acute myocardial infarction and further workup included
an echocardiogram and a stress test. Ischemia was suggested by stress test which led to cardiac catheterization which showed multivessel coronary artery disease and patient was referred to CT surgery for consideration of coronary artery bypass
graft.
Patient is a 59-year-old gentleman with newly detected multivessel coronary artery disease, s/p CABG x 5, left atrial appendage exclusion POD #3
Titrated off pressors
ECHO reviewed with normal EF
PA catheter removed, cordis in place
Extubated, on nasal canula, saturating well. 7.38, 38, 182 (07/04)
CXR with LLL subsegmental atelectasis
Encouraged incentive spirometry, OOB/ambulation/early mobility
Advance diet as tolerated
GI prophylaxis: Patient currently on Protonix
Monitor critical I/O's
Hb/stable
Trend CBC for now
Can transfuse if indicated for Hb <7, plt <50 in surgical patients
DVT prophylaxis including SCDs
Insulin protocol initiated and ongoing, per protocol
Transition to SQ/off as indicated per team
Other medical co-morbidities:
-Asthma (Eosinophil count 200-400), LLL atelectasis. Continue incentive spirometry, continue budesonide every 12, as needed albuterol. Resume Advair at discharge.
-HTN. Metoprolol ordered
-HLD. High-dose statins
-GERD. On PPI
-CKD stage III. Mild worsening of Cr to 1.7, monitor. Avoid nephrotoxic agents
- High pretest probability of sleep apnea. Outpatient sleep study,, follow-up information left in the discharge folder.
D/w RN and RT service
Critical Care time 45 mins -- The patient is admitted for acute critical illness for the treatment of vital organ failure and/or prevention of further life-threatening conditions. Total care includes time spent in review of history, physical exam,
medications, hemodynamic/ventilator parameters, laboratory data, imaging and discussion with house staff, pharmacy, respiratory therapy, personnel associate, and nursing.
Data:
Spirometry 06/2024: FEV1 96% of predicted, FVC 104% of predicted, ratio 71. TLC 107% predicted. Normal spirometry, lung volumes and diffusion capacity.
SATISH 06/2024: Normal biventricular function with no wall motion abnormalities. The LVEF is
60-65% by visual inspection.
Trace mitral regurgitation.
Normal left atrial appendage.
Normal aortic valve.
Normal tricuspid valve.
Normal aorta and aortic root.
Cardiac Cath 06/2024: 1. Multivessel coronary artery disease with chronic occlusions of the LAD and proximal RCA. The circumflex also has 80% stenosis in the mid vessel
2. Preserved LV systolic function
CXR 05/2024: Unremarkable
Subjective Data
-
Date of Service:
Date of Service: July 06, 2024
Subjective:
Patient comfortably sitting in bed, in no acute distress.
Review of Systems
Genitourinary: Other (All 14 systems reviewed and negative except as stated above in the history of present illness.)
Objective Data
Data Reviewed
Vital Signs / I&O / Oxygen:
Vital Signs
Temp Pulse Resp BP Pulse Ox
97.9 F 111 20 108/49 95
07/06/24 07:41 07/06/24 08:27 07/06/24 08:00 07/06/24 08:27 07/06/24 09:01
Intake and Output
07/05/24 07/06/2425
06:59 06:59 06:59
Intake Total 641.6 / 641.6 1426 / 1426
Output Total 1630 / 1630 1800 / 1800
Balance -988.4 / -988.4 -374 / -374
SaO2 [CPAP] 100
SaO2 [SIMV] 100
SaO2 95
Nasal Cannula flow liters per 0
minute
Physical Exam
General: Comfortable
HEENT: Normocephalic
Cardiovascular: S1-S2
Respiratory: Clear and Non-Labored Respirations
GI: Soft and Non Distended
Neurology: Awake, Alert and Oriented
Skin: Warm
Labs/Micro/Reports
Lab Data
07/06/24 04:09
07/06/24 04:09
[2024-07-06] MEDS: CORDARONE 103 MG IV (09:37)
[2024-07-06] MEDS: CORDARONE 518 MG IV (09:57)
--- NOTE | 2024-07-06 09:59 | PTCARENOTE ---
A-fib on monitor and VSS; Amiodarone bolus and drip started.
[2024-07-06 12:21] LABS: Glucose - Point of Care > 600 mg/dl (70-99)
[2024-07-06] MEDS: ProAmatine 5 MG PO (12:24)
--- NOTE | 2024-07-06 12:25 | PTCARENOTE ---
A-fib on monitor and BP 73/56, CT ELECTRIC METER REPAIRER updated, Amiodarone infusing per CT ELECTRIC METER REPAIRER give Midodrine 5mg PO and keep Amiodarone drip infusing; BS HIGH on monitor and STAT glucose sent to lab.
[2024-07-06 12:57] LABS: Glucose 269 mg/dl (70-99)
[2024-07-06] MEDS: NOVOLOG FLEXPEN-MODERATE RESISTANCE 5 UNITS SC (13:01)
--- NOTE | 2024-07-06 13:56 | PTCARENOTE ---
Sinus Tachycardia on monitor and VSS; Amiodarone infusing and family at bedside.
[2024-07-06] MEDS: ROXICODONE 5 MG PO ×2 (15:49→22:09)
--- NOTE | 2024-07-06 16:15 | PTCARENOTE ---
NSR on monitor and VSS: assessment unchanged and pt resting comfortably in chair with family at bedside.
[2024-07-06 17:29] LABS: Glucose - Point of Care 241 mg/dl (70-99)
[2024-07-06] MEDS: KCL 20 MEQ PO (20:20)
--- NOTE | 2024-07-06 21:00 | PTCARENOTE ---
Assumed care of pt from dayshift RN. Walking rounds completed. Pt AAOx3. Pt states he is anxious and feeling overwhelmed from the surgery/recovery process. Emotional support provided. Pt is SR on the tele monitor. HR 80-90s. BP stable. Weak pulses
throughout. Generalized anasarca and +1 LE edema. Pt is 96% on RA. Lung sounds diminished at the bases. Deep breathing and IS encouraged. Abdomen round. +BS. Pt reports poor appetite. Voiding w/o issue. All surgical sites stable. Right IJ cordis and
PIV x1 intact. Pt walked in roque x1 w/ stand by assist. Additional PO potassium administered as ordered - see MAR. Amiodarone infusing per protocol. See worklist for full nursing assessment and interventions. Call ramirez within reach.
[2024-07-06] MEDS: PACERONE 200 MG PO (22:09)
[2024-07-06] MEDS: XANAX 0.5 MG PO (22:40)
[2024-07-06 22:43] LABS: Glucose - Point of Care 276 mg/dl (70-99)
[2024-07-06] MEDS: NOVOLOG FLEXPEN 6 UNITS SC (23:31)
[2024-07-07] VITALS (28 sets, daily range): BP systolic 83–129; BP diastolic 57–85; PULSE 86; O2SAT 97; BMI 40.3
--- NOTE | 2024-07-07 00:08 | PTCARENOTE ---
Assessment unchanged. Pt is SR on the tele monitor. HR 80s. BP stable. Pt is 97% on 2L NC. Pt voiding w/o issue. Additional insulin given for HS blood sugar - see MAY. Amiodarone infusing as ordered. PRN Ativan for anxiety. All surgical sites
stable. Pt resting in bed at this time. Call ramirez within reach.
--- NOTE | 2024-07-07 02:48 | W.PN.CT ---
Today's Communication / Plan
-
Plan:
-No major issues overnight. Hemodynamically and neurologically intact
-Pt went into a-fib with RVR in 130's x ~ 4hrs. Currently on Amiodarone gtt, also on po Amiodarone @ 200 mg PO TID
-Will likely require DOAC if there's recurrence of a-fib
-BP has been soft postop, resumed low dose BB yesterday
-H/H 8.1/23.2 @ after 1u PRBC on 07/05, monitor
-Diuresed 4475 mL/24hrs
-Monitor postop CANDIS, 1.5 today, peaked @ 1.7, baseline 1.0-1.3. Metformin and Glimepiride on hold
-Diabetes education and management following given AIC of 13.9, started Lantus and Novolog while Metformin and Glimepiride are on hold
-Increased AC Novolog from 5u to 8u and Lantus from 15u to 20u, given elevated blood glucose
-Cont. current meds (ASA, Plavix, Toprol Xl, Amiodarone, Lantus, Novolog)
-D/C cordis after completion of amiodarone gtt
-F/U 2-view cxr
-Encourage use of IS
-OOB into chair/Ambulate
-Home later today vs tomorrow
Assessment / Plan
-
- s/p CABG x 5 (BAROTLO to LAD, GSV to D1, sGSV to OM1-OM4, GSV to RPDA); Endoscopic harvest/prep of RLE GSV; ELAA [45mm AtriClip] by Dr. Engle on 07/03/24, pod #4
- Intraop SATISH: LVEF 55-60%, no regional wma. The left atrial appendage is no longer visible with color Doppler confirming the absence of flow. The mitral regurgitation is mild in severity postop
- Multi-vessel CAD including DIRECTIONAL DRILLER of LAD and RCA
- Class 3 obesity (BMI 40)
- HTN/HLD
- DM II (HgA1c 13.9)
- Former smoker
- Small lung nodules on CT
- Hx PNA
- OA/ lumbar DDD
- Psoriasis
- CKD 3a - Cr 1.4 preop
- Acute postop blood loss anemia- stable without transfusion
- Acute postop atelectasis
- Acute postop hypovolemia with subsequent hypervolemia
- CANDIS on CKD.
- Suspected acute postop pericarditis/+rub
- Acute postop hyponatremia, 131
- Acute postop a-fib with RVR 130's x ~ 4hrs
Discussed patient care with: Cardiology, Nursing, Respiratory Therapy, Pharmacy and Care Team
Subjective
-
Date of Service: July 07, 2024
Pt c/o mild incisional pain, otherwise feels well
Objective Data
-
PT 17.1 Sec (11.4-14.6) H 07/03/24 14:48
INR 1.34 07/03/24 14:48
APTT 31.8 Sec (23.4-35.0) 07/03/24 14:48
Vital Signs
Vital Signs
Temp Pulse Resp BP Pulse Ox
98.1 F 84 16 111/59 97
07/07/24 00:03 07/07/24 00:03 07/07/24 00:03 07/07/24 00:00 07/07/24 00:03
CT Intake/Output/Weight
07/06/24 07/06/24 07/07/24
06:59 18:59 06:59
Intake Total 260 / 1426 133.5 / 133.5
Output Total 750 / 1800 2450 / 3450 1000 / 3450
Balance -490 / -374 -2450 / -3316.5 -866.5 / -3316.5
SaO2: 97 (2L)
Physical Exam
-
General: Awake, Oriented and AOx3
Cardiovascular: Regular rate & rhythm, No Murmurs, No Rub and No Gallop
Respiratory: Decreased Breath Sounds (at bases, otherwise clear)
Sternum: Stable
Incision: Clean, Dry, Intact and Dressing Intact
Extremities: Other (+trace edema )
Data Reviewed
-
Lab Results: Results Reviewed
Medications: Active Meds Reviewed
Chest X-Ray: Report Reviewed and Image Reviewed
ECG: Report Reviewed and Image Reviewed
[2024-07-07 04:29] LABS: Hematocrit 23.2 % (39.0-52.0); Hemoglobin 8.1 g/dL (13.0-18.0); Mean Corp Hgb Conc. 34.9 g/dL (33.0-37.0); Mean Corpuscular Hgb 29.9 pg (27.0-31.0); Mean Corpuscular Volume 85.6 fL (80.0-94.0); Mean Platelet Volume 11.2 fL (7.4-10.4); Platelet Count 205 10^3/uL (130-400); Red Blood Cell Count 2.71 10^6/uL (4.70-6.10); Red Cell Dist. Width 14.2 % (11.5-14.5); White Blood Cell Count 15.2 10^3/uL (4.8-10.8)
--- NOTE | 2024-07-07 04:35 | PTCARENOTE ---
No acute change in assessment. Pt is SR on the tele monitor. HR 80s. BP stable. Pt 94% on RA. All surgical sites stable. Pt assisted OOB to void and then repositioned back into bed. Labs drawn and sent. Amiodarone infusing. Call ramirez within reach.
[2024-07-07 04:46] LABS: Blood Urea Nitrogen 46 mg/dl (9-20); Calcium 8.4 mg/dl (8.4-10.2); Carbon Dioxide 28 mmol/L (22-30); Chloride 100 mmol/L (98-107); Estimated Creatinine Clearance 73 ml/min; Glucose 174 mg/dl (70-99); Magnesium 2.3 mg/dl (1.6-2.3); Potassium 4.3 mmol/L (3.5-5.1); Sodium 134 mmol/L (135-145); eGFR 53.96
[2024-07-07] MEDS: CALCIUM GLUCONATE 130 MG IV ×2 (05:34→20:06)
[2024-07-07] MEDS: TYLENOL 1000 MG PO ×3 (05:35→21:34)
[2024-07-07 07:42] LABS: Glucose - Point of Care 183 mg/dl (70-99)
[2024-07-07] MEDS: VENTOLIN NEBULES 2.5 MG INH ×3 (07:55→19:08)
[2024-07-07] MEDS: PULMICORT 0.5 MG INH ×2 (07:55→19:07)
[2024-07-07] MEDS: MUCINEX 600 MG PO ×2 (08:05→20:05)
[2024-07-07] MEDS: NEURONTIN 300 MG PO ×3 (08:05→21:33)
[2024-07-07] MEDS: LIPITOR 80 MG PO (08:05)
[2024-07-07] MEDS: PLAVIX 75 MG PO (08:05)
[2024-07-07] MEDS: BACTROBAN 2% OINTMENT 1 APPLIC NASAL (08:05)
[2024-07-07] MEDS: VITAMIN C 500 MG PO (08:05)
[2024-07-07] MEDS: LOW STRENGTH ASPIRIN 81 MG PO (08:05)
[2024-07-07] MEDS: TOPROL XL 12.5 MG PO ×2 (08:06→10:15)
[2024-07-07] MEDS: PACERONE 200 MG PO ×3 (08:06→21:34)
[2024-07-07] MEDS: FEOSOL 325 MG PO (08:06)
[2024-07-07] MEDS: SENOKOT-S 1 TABLET PO ×2 (08:06→20:05)
[2024-07-07] MEDS: ROXICODONE 5 MG PO (08:07)
[2024-07-07] MEDS: PROTONIX 40 MG PO (08:07)
[2024-07-07] MEDS: LANTUS 0.2 UNITS SC (08:08)
[2024-07-07] MEDS: NOVOLOG FLEXPEN 8 UNITS SC ×3 (08:09→16:46)
[2024-07-07] MEDS: NOVOLOG FLEXPEN-MODERATE RESISTANCE 1 UNITS SC (08:09)
--- NOTE | 2024-07-07 08:30 | PTCARENOTE ---
Received patient for 7a-7p shift. Patient AAOx3, NSR on hall monitor, VSS. Blood glucose 183, Patient medicated for pain, medications administered as ordered. Patient tolerating IS up to 1500 ml, encouraged. Pt and family educated on fluid,
sodium restrictions, verbalized understanding. Pt with decreased appetite, po intake encouraged. Emotional support provided. R IJ cordis infusing without complications. Instructed patient to call for assistance prior to ambulation. Patient
demonstrates use of call ramirez. Will continue to monitor.
[2024-07-07] MEDS: FARXIGA 10 MG PO (10:15)
[2024-07-07] MEDS: VENTOLIN NEBULES INH (11:55)
[2024-07-07] MEDS: FLEXERIL 5 MG PO (12:03)
[2024-07-07] MEDS: LASIX 40 MG IV ×2 (12:03→15:47)
[2024-07-07] MEDS: NOVOLOG FLEXPEN-MODERATE RESISTANCE 3 UNITS SC ×2 (12:06→16:47)
[2024-07-07 12:07] LABS: Glucose - Point of Care 219 mg/dl (70-99)
--- NOTE | 2024-07-07 12:30 | PTCARENOTE ---
NSR on alarm security or surveillance monitor, VSS. Patient medicated for pain, medications administered as ordered. Patient ambulated in roque x 2. IS up to 1500, encouraged, tolerated. Pt tolerating po intake. IV lasix given- pt voiding without issues. Will continue to
monitor.
[2024-07-07 16:50] LABS: Glucose - Point of Care 215 mg/dl (70-99)
[2024-07-07] MEDS: NSS 500 IV (17:34)
[2024-07-07] MEDS: CORDARONE 103 MG IV ×2 (17:44→19:05)
--- NOTE | 2024-07-07 18:40 | PTCARENOTE ---
Patient converted to uncontrolled afib at 1730, hr 100-130s. ALONDRA Sandoval MANUAL QA TESTER aware. Pt returned to bed. Amio bolus given. HR 100-117 after bolus. BP 80/60s, came up to 90s/60. Pt resting. Additional amio bolus ordered. Will administer as ordered and
continue to monitor.
[2024-07-07] MEDS: KCL 40 MEQ PO (20:05)
[2024-07-07] MEDS: CORDARONE 518 MG IV (20:06)
--- NOTE | 2024-07-07 20:25 | PTCARENOTE ---
assumed care of pt from previous rn. pt AAOx4, A-fib per monitor HR 100s. trace edema throughout, +pulses, lungs diminished throughout, pox 95% on RA, IS 1500, +non productive occasional cough. pt voiding in urinal, +bs, all surgical sites intact,
RIJ cordis infusing KVO. piv x1 intact. plan of care discussed questions encouraged.
[2024-07-07] MEDS: TOPROL XL 25 MG PO (21:33)
[2024-07-07 21:58] LABS: Glucose - Point of Care 221 mg/dl (70-99)
[2024-07-07] MEDS: ROXICODONE 2.5 MG PO (22:10)
[2024-07-07] MEDS: XANAX 0.5 MG PO (22:10)
--- NOTE | 2024-07-07 23:45 | PTCARENOTE ---
VSS, Afib per tele monitor, HR low 100s. assessment remains unchanged
[2024-07-08] VITALS (21 sets, daily range): BP systolic 81–131; BP diastolic 50–85; PULSE 85; O2SAT 96–97; BMI 39.8
--- NOTE | 2024-07-08 01:15 | PTCARENOTE ---
pt converted to NSR from A-fib @0103.
[2024-07-08 01:35] LABS: Glucose - Point of Care 213 mg/dl (70-99)
[2024-07-08] MEDS: ROXICODONE 5 MG PO ×2 (02:02→08:29)
[2024-07-08] MEDS: NOVOLOG FLEXPEN 6 UNITS SC (02:03)
--- NOTE | 2024-07-08 03:50 | W.PN.CT ---
Today's Communication / Plan
-
Plan:
-No major issues overnight. Hemodynamically and neurologically intact
-Pt went into a-fib with RVR in 130's x ~ 4hrs on POD#3 and 8.5 hrs on POD#4. Currently on Amiodarone gtt, also on po Amiodarone @ 200 mg PO TID
-Will discuss DOAC for recurrent a-fib
-BP has been soft postop, now tolerating increased BB
-H/H 7.8/23.5 @ after 1u PRBC on 07/05, monitor
-Diuresed > 2.5 L/24hrs. Wt is up 8 lbs from preop. Received total 80 mg IV Lasix yesterday
-Monitor postop CANDIS, 1.7 today, was 1.5 yesterday, peaked @ 1.7, baseline 1.0-1.3. Metformin and Glimepiride on hold
-Diabetes education and management following given AIC of 13.9, started Lantus and Novolog while Metformin and Glimepiride are on hold
-Increased AC Novolog from 5u to 8u and Lantus from 15u to 20u, given elevated blood glucose
-Cont. current meds (ASA, Plavix, Toprol Xl, Amiodarone, Lantus, Novolog)
-D/C cordis after completion of amiodarone gtt
-Encourage use of IS
-OOB into chair/Ambulate
-Home likely tomorrow
Assessment / Plan
-
- s/p CABG x 5 (BARTOLO to LAD, GSV to D1, sGSV to OM1-OM4, GSV to RPDA); Endoscopic harvest/prep of RLE GSV; ELAA [45mm AtriClip] by Dr. Engle on 07/03/24, pod #5
- Intraop SATISH: LVEF 55-60%, no regional wma. The left atrial appendage is no longer visible with color Doppler confirming the absence of flow. The mitral regurgitation is mild in severity postop
- Multi-vessel CAD including LINE ASSEMBLY UTILITY WORKER of LAD and RCA
- Class 3 obesity (BMI 40)
- HTN/HLD
- DM II (HgA1c 13.9)
- Former smoker
- Small lung nodules on CT
- Hx PNA
- OA/ lumbar DDD
- Psoriasis
- CKD 3a - Cr 1.4 preop
- Acute postop blood loss anemia- stable without transfusion
- Acute postop atelectasis
- Acute postop hypovolemia with subsequent hypervolemia
- CANDIS on CKD.
- Suspected acute postop pericarditis/+rub
- Acute postop hyponatremia, 131
- Acute postop a-fib with RVR 130's x ~ 4hrs
Discussed patient care with: Cardiology, Nursing, Respiratory Therapy, Pharmacy and Care Team
Subjective
-
Date of Service: July 08, 2024
Pt c/o mild incisional pain, otherwise feels well
Objective Data
-
PT 17.1 Sec (11.4-14.6) H 07/03/24 14:48
INR 1.34 07/03/24 14:48
APTT 31.8 Sec (23.4-35.0) 07/03/24 14:48
Vital Signs
Vital Signs
Temp Pulse Resp BP Pulse Ox
98.3 F 75 20 118/70 99
07/08/24 03:37 07/08/24 03:30 07/08/24 03:37 07/08/24 03:00 07/08/24 03:37
CT Intake/Output/Weight
07/07/24 07/07/24 07/08/24
06:59 18:59 06:59
Intake Total 293.7 / 293.7 893.4 / 1060.1 166.7 / 1060.1
Output Total 1550 / 4000 650 / 2450 1800 / 2450
Balance -1256.3 / -3706.3 243.4 / -1389.9 -1633.3 / -1389.9
SaO2: 94 (RA)
Physical Exam
-
General: Awake, Oriented and AOx3
Cardiovascular: Regular rate & rhythm, No Murmurs, No Rub and No Gallop
Respiratory: Decreased Breath Sounds (at bases, otherwise clear)
Sternum: Stable
Incision: Clean, Dry, Intact and Dressing Intact
Extremities: Other (+trace edema)
Data Reviewed
-
Lab Results: Results Reviewed
Medications: Active Meds Reviewed
Chest X-Ray: Report Reviewed and Image Reviewed
ECG: Report Reviewed and Image Reviewed
[2024-07-08 04:16] LABS: Glucose - Point of Care 162 mg/dl (70-99)
--- NOTE | 2024-07-08 04:20 | PTCARENOTE ---
routine labs obtained, pt resting comfortably in bed, NSR per tele monitor, VSS, assessment remains unchanged
[2024-07-08 04:33] LABS: Hematocrit 23.5 % (39.0-52.0); Hemoglobin 7.8 g/dL (13.0-18.0); Mean Corp Hgb Conc. 33.2 g/dL (33.0-37.0); Mean Corpuscular Volume 87.4 fL (80.0-94.0); Mean Platelet Volume 11.1 fL (7.4-10.4); Platelet Count 246 10^3/uL (130-400); Red Blood Cell Count 2.69 10^6/uL (4.70-6.10); Red Cell Dist. Width 14.2 % (11.5-14.5); White Blood Cell Count 14.9 10^3/uL (4.8-10.8)
[2024-07-08 04:55] LABS: Blood Urea Nitrogen 46 mg/dl (9-20); Calcium 8.8 mg/dl (8.4-10.2); Carbon Dioxide 28 mmol/L (22-30); Chloride 100 mmol/L (98-107); Estimated Creatinine Clearance 64 ml/min; Glucose 152 mg/dl (70-99); Magnesium 2.2 mg/dl (1.6-2.3); Potassium 4.3 mmol/L (3.5-5.1); Sodium 135 mmol/L (135-145); eGFR 46.44
[2024-07-08] MEDS: TYLENOL 1000 MG PO ×3 (06:12→22:02)
[2024-07-08] MEDS: NOVOLOG FLEXPEN-MODERATE RESISTANCE 1 UNITS SC ×3 (07:21→17:25)
[2024-07-08] MEDS: NOVOLOG FLEXPEN 8 UNITS SC (07:21)
[2024-07-08 07:24] LABS: Glucose - Point of Care 161 mg/dl (70-99)
[2024-07-08] MEDS: PULMICORT 0.5 MG INH (07:38)
[2024-07-08] MEDS: VENTOLIN NEBULES 2.5 MG INH ×2 (07:38→11:30)
--- NOTE | 2024-07-08 07:54 | W.PN.CARDCBS ---
Addendum entered and electronically signed by Chandan López DO 07/09/24 08:43:
I saw and examined the patient 07/08/24 9AM. .
The Senior Research Scientist's note was reviewed and I agree with the note.
Comment:
Plan:
Cont post op care
Transition to oral amiodarone
Cont Eliquis
Outpt follow up with Dr Portillo.
Original Note:
Today's Communication / Plan
-
Amiodarone gtt and amiodarone PO
Check ECG to reassess QTc
Impression / Plan
-
Primary Toll Bridge Operator: Dr. Portillo
Assessment:
MV CAD s/p CABG x 5 BARTOLO to LAD, GSV to D1, sGSV to OM1-OM4, GSV to RPDA, FÁTIMA clip 07/03/24
Poorly controlled diabetes with hgbA1c 13.9%
HTN
HLD
GERD
Asthma
Obesity
FH CAD
Paroxysmal Afib
initially seen post-op 07/06/24 afternoon, spontaneously converted to SR
recurred 07/07/24 and started on amiodarone gtt
Echo 06/11/24: EF 55 to 60%, mild concentric LVH, no significant valvular pathology, no regional wall motion abnormalities
post op SATISH 07/03/2024: EF 60-65%
Plan:
-Patient is s/p CABG with VELÁSQUEZ to LAD, SVG to D1, SVG to OM1-OM4, SVG to RPDA, FÁTIMA clip 07/03/24.
-Patient initially admitted for chest pain and serially normal Troponin levels 06/10/24 until 06/11/24. Outpatient stress test was abnormal and then cardiac cath 06/21/24 that revealed MV CAD.
-Patient with paroxysmal Afib 07/06/24 and again 07/07/24. Amiodarone gtt running at 0.5 mg/min on 07/08/24 AM. Amiodarone 200 mg PO TID also ordered and patient has received a 1 gram PO load as of 07/08/24.
-ECG reviewed by me 07/05/24, QTc 510 ms. Recheck ECG 07/08/24, ordered by me
-New to Eliquis 5 mg BID (age 59, Cre 1.7, wt 125.8 kg)
-Outpatient dose of aspirin 81 mg daily has been continued
-Briefly on Plavix following CABG, but this was stopped due to Afib and need for Eliquis
-Hgb 7.8 following 1 unit PRBCs 07/05/24
-Outpatient dose of Toprol XL increased to 25 mg BID
-Labs reviewed by me 07/08/24 and Cre 1.7, Cre was 1.4 pre-op.
-Outpatient dose of lisinopril 10 mg daily remains on hold
Progress Note - Toll Bridge Operator
Subjective
Date of Service: July 08, 2024
He feels well, symptomatic when in Afib with palpitations and left shoulder discomfort
Objective
Labs:
07/08/24 04:17
07/08/24 04:17
Labs
Hgb 7.8 g/dL (13.0-18.0) L 07/08/24 04:17
Hct 23.5 % (39.0-52.0) L 07/08/24 04:17
Plt Count 246 10^3/uL (130-400) 07/08/24 04:17
PT 17.1 Sec (11.4-14.6) H 07/03/24 14:48
INR 1.34 07/03/24 14:48
APTT 31.8 Sec (23.4-35.0) 07/03/24 14:48
Sodium 135 mmol/L (135-145) 07/08/24 04:17
Potassium 4.3 mmol/L (3.5-5.1) 07/08/24 04:17
BUN 46 mg/dl (9-20) H 07/08/24 04:17
Creatinine 1.7 mg/dL (0.7-1.3) H 07/08/24 04:17
Glucose 152 mg/dl (70-99) H 07/08/24 04:17
Vital Signs and I&O:
Vital Signs
Temp Pulse Resp BP Pulse Ox
98.3 F 78 17 131/76 99
07/08/24 03:37 07/08/24 07:40 07/08/24 07:40 07/08/24 06:13 07/08/24 06:00
Vital Signs
Temp Pulse Resp BP Pulse Ox
98.3 F 78 17 131/76 99
07/08/24 03:37 07/08/24 07:40 07/08/24 07:40 07/08/24 06:13 07/08/24 06:00
Intake & Output
07/06/24 07/07/24 07/08/24 07/09/24
06:59 06:59 06:59 06:59
Intake Total 1426 / 1426 293.7 / 293.7 1146.7 / 1146.7
Output Total 1800 / 1800 4000 / 4000 2925 / 2925
Balance -374 / -374 -3706.3 / -3706.3 -1778.3 / -1778.3
Physical Exam
Physical Exam
GEN: NAD. AAOx3
HEENT: EOMI, MMM
LUNGS: Undergoing neb treatment. RA. No wheeze
CV: SR.
ABD: ND
EXT: No edema B/L
NEURO: Gross non-focal
SKIN: No rash
[2024-07-08] MEDS: PROTONIX 40 MG PO (08:18)
[2024-07-08] MEDS: NEURONTIN 300 MG PO ×3 (08:18→22:03)
[2024-07-08] MEDS: FEOSOL 325 MG PO (08:19)
[2024-07-08] MEDS: ELIQUIS 5 MG PO ×2 (08:19→21:02)
[2024-07-08] MEDS: PACERONE 200 MG PO ×3 (08:19→22:03)
[2024-07-08] MEDS: TOPROL XL 25 MG PO ×2 (08:19→21:05)
[2024-07-08] MEDS: LIPITOR 80 MG PO (08:19)
[2024-07-08] MEDS: LOW STRENGTH ASPIRIN 81 MG PO (08:19)
[2024-07-08] MEDS: MUCINEX 600 MG PO ×2 (08:19→21:03)
[2024-07-08] MEDS: FARXIGA 10 MG PO (08:19)
[2024-07-08] MEDS: VITAMIN C 500 MG PO (08:19)
[2024-07-08] MEDS: SENOKOT-S 1 TABLET PO ×2 (08:19→21:03)
[2024-07-08] MEDS: LANTUS 0.2 UNITS SC (08:19)
[2024-07-08] MEDS: MILK OF MAGNESIA 30 ML PO (08:29)
--- NOTE | 2024-07-08 08:46 | PN.DE.MGMTRT ---
Insulin Management
- -
07/08/2024: Diabetes Management Follow up
Patient admitted for scheduled CABG 07/03. PMH multivessel CAD, HTN, HLD, GERD, diabetes, obesity, asthma, psoriasis. Prior to admission was taking 1000 mg metformin BID, Tresiba 8 units daily, glimepiride 2 mg daily. Patient known to me from
admission 06/11 with A1C 13.9%.
POD #5 s/p CABG x 5. Doing well. Awake, alert, oriented, sitting up in chair, offers no complaints, able to discuss diabetes care plan
Patient was transitioned off insulin infusion on 07/05 to SQ insulin. Noted fpr CANDIS, Cr 1.7 today, Metformin and Glimepiride remain on hold.
Received Lantus 20 units @ HS, FBG 152 V, 161 POC, will cont same dose of Lantus 20 units.
07/07 Premeal range 183 to 219, will increase AC NovoLog to 10 units, cont moderate corrective insulin with meals.
Will cont to follow. Discussed with nurse.
Patient was provided with Contour Next glucose monitor during his past hospital stay and states that he has enough supplies at home. Encourage f/u with PCP to adjust insulin dose and get script for a CGM.
Diabetes History
- -
Type of Diabetes: 2 requiring insulin
Pre-Admission Diabetes Regimen
07/08/24
04:17
Creatinine 1.7 H
Insulin Pump Settings
IP Diabetes Regimen
07/07/24 07/07/24 07/07/24
12:05 16:44 21:57
Glucose
POC Glucose 219 H 215 H 221 H
07/08/24 07/08/24 07/08/24
01:33 04:15 04:17
Glucose 152 H
POC Glucose 213 H 162 H
07/08/24
07:19
Glucose
POC Glucose 161 H
Meal type: Lunch
Meal type: Breakfast
Amount consumed: 90%
Amount consumed: 80%
Patient Education
--- NOTE | 2024-07-08 09:22 | CM ---
[facility]- his copay is $10/moth and it is in stock
--- NOTE | 2024-07-08 09:42 | PTCARENOTE ---
assumed care of pt from previous shift RN, sinus rhythm on tele w HR 70's, VSS, + peripheral pulses, trace edema to bilateral lower extremities. Lungs clear, coughing and deep breathing encouraged. +bs, tolerating PO intake, voids spontaneously.
Surgical sites stable. Amiodarone infusing through right IJ cordis, PIV flushes easily. Plan of care reviewed w the pt and questions encouraged.
[2024-07-08] MEDS: LASIX 40 MG PO (12:48)
[2024-07-08 12:51] LABS: Glucose - Point of Care 178 mg/dl (70-99)
[2024-07-08] MEDS: NOVOLOG FLEXPEN 10 UNITS SC ×2 (12:51→17:25)
[2024-07-08] MEDS: FLEXERIL 5 MG PO (12:55)
--- NOTE | 2024-07-08 13:27 | PTCARENOTE ---
07/09/2024 DIABETES EDUCATION
I briefly met with Lynda, previously met with him in early June for diabetes education consult. Patient states that after discharge in early June, he did not pass a stress test and was found to have occluded arteries. Just completed surgery, no
heart attack. States he made many dietary changes, and took medication as prescibed and was losing weight. BS was in low 100's prior to this inpatient stay. He requested a list of endocrinologists, would like to follow up in future. List
provided for patient, he will outreach our office with questions or concerns.
[2024-07-08] MEDS: NSS 500 IV (13:59)
[2024-07-08] MEDS: VENTOLIN NEBULES INH ×2 (15:21→19:43)
[2024-07-08 17:28] LABS: Glucose - Point of Care 189 mg/dl (70-99)
--- NOTE | 2024-07-08 18:41 | PTCARENOTE ---
Patient received fro CV/ICU, walk to room. Patient oriented to room and call ramirez. NSR in the 70's. Call ramirez placed in reach
[2024-07-08] MEDS: PULMICORT INH (19:43)
[2024-07-08] MEDS: ROXICODONE 2.5 MG PO (21:03)
[2024-07-08] MEDS: KCL 20 MEQ PO (21:04)
[2024-07-08] MEDS: XANAX 0.5 MG PO (22:03)
[2024-07-08 22:10] LABS: Glucose - Point of Care 179 mg/dl (70-99)
[2024-07-09] VITALS (17 sets, daily range): BP systolic 86–153; BP diastolic 51–96; PULSE 77–84; BMI 40.1
--- NOTE | 2024-07-09 01:24 | PTCARENOTE ---
Rec'd pt at change of shift. Pt with VSS, AAO*3, and SR on TELE monitor. Pt reported pain in lower back, PRN oxycodone given. PT also reported constipation, ambulated to BR and had small bm. Small relief reported to constipation, PRN dulcolax
offered but pt refused. Pt reported feeling anxious at this time as well. PRN xanax given as ordered. Pt resting at bedside with call ramirez in reach. See MAR and flowchart for full pt care and assessment. R IJ intact, fluid infusing as ordered.
[2024-07-09] MEDS: NSS 500 IV (03:48)
[2024-07-09] MEDS: ROXICODONE 5 MG PO ×2 (04:13→11:36)
[2024-07-09 04:34] LABS: Hematocrit 23.5 % (39.0-52.0); Hemoglobin 8.2 g/dL (13.0-18.0); Mean Corp Hgb Conc. 34.9 g/dL (33.0-37.0); Mean Corpuscular Hgb 30.3 pg (27.0-31.0); Mean Corpuscular Volume 86.7 fL (80.0-94.0); Mean Platelet Volume 11.1 fL (7.4-10.4); Platelet Count 319 10^3/uL (130-400); Red Blood Cell Count 2.71 10^6/uL (4.70-6.10); Red Cell Dist. Width 14.4 % (11.5-14.5); White Blood Cell Count 15.8 10^3/uL (4.8-10.8)
[2024-07-09 05:01] LABS: Blood Urea Nitrogen 52 mg/dl (9-20); Calcium 8.6 mg/dl (8.4-10.2); Carbon Dioxide 26 mmol/L (22-30); Chloride 100 mmol/L (98-107); Estimated Creatinine Clearance 68 ml/min; Glucose 132 mg/dl (70-99); Magnesium 2.2 mg/dl (1.6-2.3); Potassium 4.4 mmol/L (3.5-5.1); Sodium 136 mmol/L (135-145); eGFR 49.94
[2024-07-09] MEDS: TYLENOL 1000 MG PO ×3 (05:29→22:01)
--- NOTE | 2024-07-09 05:31 | W.PN.CT ---
Today's Communication / Plan
-
Plan:
-No major issues overnight. Hemodynamically and neurologically intact
-Pt went into a-fib with RVR in 130's x ~ 4hrs on POD#3 and 8.5 hrs on POD#4. Tolerating increase Toprol XL of 25 mg BID, on PO Amiodarone
-Started Eliquis yesterday 07/08
-BP has been soft postop, now tolerating increased BB
-H/H 8.2/23.5 after 1u PRBC on 07/05, monitor
-Got PO Lasix yesterday
-Monitor postop CANDIS, 1.6 today, was 1.6 yesterday, peaked @ 1.7, baseline 1.0-1.4. Metformin and Glimepiride on hold. Will f/u cr as an outpt
-Diabetes education and management following given AIC of 13.9, started Lantus and Novolog while Metformin and Glimepiride are on hold
-Increased AC Novolog from 5u to 8u and Lantus from 15u to 20u, given elevated blood glucose
-Cont. current meds (ASA, Plavix, Toprol Xl, Amiodarone, Lantus, Novolog)
-D/C cordis
-No temporary PW
-Encourage use of IS
-OOB into chair/Ambulate
-Home today
Assessment / Plan
-
- s/p CABG x 5 (BARTOLO to LAD, GSV to D1, sGSV to OM1-OM4, GSV to RPDA); Endoscopic harvest/prep of RLE GSV; ELAA [45mm AtriClip] by Dr. Engle on 07/03/24, pod #6
- Intraop SATISH: LVEF 55-60%, no regional wma. The left atrial appendage is no longer visible with color Doppler confirming the absence of flow. The mitral regurgitation is mild in severity postop
- Multi-vessel CAD including GROUP PRESIDENT of LAD and RCA
- Class 3 obesity (BMI 40)
- HTN/HLD
- DM II (HgA1c 13.9)
- Former smoker
- Small lung nodules on CT
- Hx PNA
- OA/ lumbar DDD
- Psoriasis
- CKD 3a - Cr 1.4 preop
- Acute postop blood loss anemia- stable without transfusion
- Acute postop atelectasis
- Acute postop hypovolemia with subsequent hypervolemia
- CANDIS on CKD.
- Suspected acute postop pericarditis/+rub
- Acute postop hyponatremia, 131
- Acute postop a-fib with RVR 130's x ~ 4hrs
Discussed patient care with: Cardiology, Nursing, Respiratory Therapy, Pharmacy and Care Team
Subjective
-
Date of Service: July 09, 2024
Pt c/o mild incisional pain, otherwise feels well
Objective Data
-
Lab Results
07/09/24 04:09
07/09/24 04:09
PT 17.1 Sec (11.4-14.6) H 07/03/24 14:48
INR 1.34 07/03/24 14:48
APTT 31.8 Sec (23.4-35.0) 07/03/24 14:48
Vital Signs
Vital Signs
Temp Pulse Resp BP Pulse Ox
97.8 F 71 16 97/66 98
07/09/24 03:45 07/09/24 03:47 07/09/24 03:45 07/09/24 03:47 07/09/24 03:45
CT Intake/Output/Weight
07/08/24 07/08/24 07/09/24
06:59 18:59 06:59
Intake Total 253.3 / 1146.7 26.7 / 26.7
Output Total 2275 / 2925 250 / 250
Balance -2021.7 / -1778.3 -223.3 / -223.3
SaO2: 98 (RA)
Physical Exam
-
General: Awake, Oriented and AOx3
Cardiovascular: Regular rate & rhythm
Respiratory: Decreased Breath Sounds (at bases, otherwise clear)
Sternum: Stable
Incision: Clean, Dry, Intact and Dressing Intact
Extremities: Other (+trace edema)
Data Reviewed
-
Lab Results: Results Reviewed
Medications: Active Meds Reviewed
Chest X-Ray: Report Reviewed and Image Reviewed
ECG: Report Reviewed and Image Reviewed
[2024-07-09] MEDS: LIDOCAINE 4% PATCH 1 PATCH TOPICAL (06:21)
[2024-07-09] MEDS: PULMICORT INH (07:20)
[2024-07-09] MEDS: VENTOLIN NEBULES INH (07:20)
[2024-07-09 07:22] LABS: Glucose - Point of Care 133 mg/dl (70-99)
[2024-07-09] MEDS: NOVOLOG FLEXPEN-MODERATE RESISTANCE SC (07:24)
--- NOTE | 2024-07-09 07:29 | PN.DE.MGMTRT ---
Insulin Management
- -
07/09/2024: Diabetes Management Follow up
Patient admitted for scheduled CABG 07/03. PMH multivessel CAD, HTN, HLD, GERD, diabetes, obesity, asthma, psoriasis. Prior to admission was taking 1000 mg metformin BID, Tresiba 8 units daily, glimepiride 2 mg daily. Patient known to me from
admission 06/11 with A1C 13.9%.
POD #6 s/p CABG x 5. Doing well. Awake, alert, oriented, sitting up in chair, offers no complaints, able to discuss diabetes care plan
Patient was transitioned off insulin infusion on 07/05 to SQ insulin. Noted for CANDIS, Cr 1.7-->1.6 today, Metformin and Glimepiride remain on hold.
Received Lantus 20 units @ HS, FBG 152 V, 161 POC, will cont same dose of Lantus 20 units.
07/07 Premeal range 183 to 219, will increase AC NovoLog to 10 units, cont moderate corrective insulin with meals.
Will cont to follow. Discussed with nurse.
Patient was provided with Contour Next glucose monitor during his past hospital stay and states that he has enough supplies at home. Encourage f/u with PCP to adjust insulin dose and get script for a CGM.
Meds at Discharge: Tresiba 12 units, NovoLog 10 units and Farxiga 10mg daily
Pt will need close f/u with PCP to transition back to his oral regimen when kidney function is at baseline
Diabetes History
- -
Type of Diabetes: 2 requiring insulin
Pre-Admission Diabetes Regimen
07/09/24
04:09
Creatinine 1.6 H
Insulin Pump Settings
IP Diabetes Regimen
07/08/24 07/08/24 07/08/24
12:50 17:24 22:08
Glucose
POC Glucose 178 H 189 H 179 H
07/09/24 07/09/24
04:09 07:19
Glucose 132 H
POC Glucose 133 H
Meal type: Dinner
Meal type: Breakfast
Amount consumed: 100%
Patient Education
[2024-07-09] MEDS: FEOSOL 325 MG PO (07:46)
[2024-07-09] MEDS: FARXIGA 10 MG PO (07:46)
[2024-07-09] MEDS: NEURONTIN 300 MG PO ×3 (07:46→22:01)
[2024-07-09] MEDS: PROTONIX 40 MG PO (07:46)
[2024-07-09] MEDS: ELIQUIS 5 MG PO ×2 (07:46→19:45)
[2024-07-09] MEDS: LIPITOR 80 MG PO (07:46)
[2024-07-09] MEDS: TOPROL XL 25 MG PO ×2 (07:46→19:45)
[2024-07-09] MEDS: MUCINEX 600 MG PO ×2 (07:46→19:45)
[2024-07-09] MEDS: VITAMIN C 500 MG PO (07:47)
[2024-07-09] MEDS: SENOKOT-S 1 TABLET PO ×2 (07:47→19:45)
[2024-07-09] MEDS: LANTUS 0.2 UNITS SC (07:47)
[2024-07-09] MEDS: LOW STRENGTH ASPIRIN 81 MG PO (07:47)
[2024-07-09] MEDS: PACERONE 200 MG PO ×3 (07:47→22:01)
[2024-07-09] MEDS: NOVOLOG FLEXPEN 10 UNITS SC ×3 (07:48→16:40)
--- NOTE | 2024-07-09 09:32 | CM ---
Reviewed chart. Mr. De Leon was transferred to IVU. Met with Mr. De Leon to review discharge plans. He states he is feeling tired but maybe able to go home soon. He states prior to admission he resides with his spouse and two children in a spilt
level home with one step to enter. He states has six steps to get to each level. He states prior to admission he was independent with ambulation and adls. He states he does not have any DME in the home. He states he hsa a prescription plan and
uses [facility]. He states his spouse will be home and she will be working from home so she will be able to assist in his care if needed. We reviewed a home visit by the Transitional Care Nurse. He us agreeable to a home visit. Medical
work-up in progress. The discharge plan is to return home with his spouse and children and a home visit by the Transitional Care Nurse when medically stable.
--- NOTE | 2024-07-09 10:10 | W.DCSUMMARY ---
Discharge Summary
Discharge Data
Date of Admission: 07/03/24
Date of Discharge: 07/10/24
Total time spent discharging patient (in min): 50
-
Pending Results: No
Hospital Course
Primary care physician:
Keiry COLON
Outpatient automotive starter repairer:
Dr. Corrie Jaramillo
Inpatient consultants:
DM management HIGH SCHOOL MATHEMATICS TEACHER, [facility], and nutrition manager.
Procedures:
1. CABG x 5 (BARTOLO to LAD, GSV to D1, sGSV to OM1-OM4, GSV to RPDA) and ELAA
Primary Diagnosis:
1. Multi-vessel coronary disease
Secondary Diagnoses:
1. poorly controlled diabetes mellitus
2. Obesity
3. Hypertension
4. Hyperlipidemia
5. post-op Atrial fibrillation
6. acute post-op hyponatermia
7. Acute post-op anemia with transfusion
8. CANDIS on CKD
HPI: 59-year-old gentleman who was admitted to [facility] in the end of May this year for chest discomfort with shortness of breath. He was ruled out to have acute myocardial infarction and further workup included an echocardiogram and
a stress test. Ischemia was suggested by stress test which led to cardiac catheterization which showed multivessel coronary artery disease and patient was referred to CT surgery for consideration of coronary artery bypass graft. He presented
electively on 07/[address] Engle.
Hospital course:
Patient postoperatively returned to the CVICU on Levophed Precedex and insulin. He was initially given a liter of lactated Ringer's for fluid resuscitation Precedex was weaned off and he was extubated by 1650. Patient's blood pressure continued to
be labile and was given 1 albumin. Overnight he was given 2 bicarb and 2 calcium chloride repletion's. 04/05 postoperative day 1 patient was doing well on 6 of levo and was given an additional albumin bolus. Patient's arterial line was removed.
Patient's creatinine peaked at 1.7 and Toradol was placed on hold. On 07/05 postoperative day 2, patient's chest tubes were removed. He was given 2 mg of IV Bumex for diuresis with minimal response. Increase gabapentin for pain control and was
started on Farxiga for his diabetes. Patient's hemoglobin was 7.5 and he was transfused with 1 unit of packed red blood cells and Levophed was resumed for systolic pressures greater than 100. On 07/06 postoperative day 3, patient's Levophed was
weaned off and he was diuresed with 40 mg of IV Lasix. Patient developed new onset atrial fibrillation and was given amnio bolus and drip. He converted back to sinus rhythm after 6 hours. On 07/07 postoperative day 4, amiodarone was transitioned
to oral. He was diuresed with 40 mg of IV Lasix and metoprolol succinate was uptitrated to 25 mg twice daily. Patient converted back into atrial fibrillation at 1730 and was given an additional 2 amiodarone boluses. He converted back into sinus
rhythm after 8 hours. On 07/08 postoperative day 5 patient was diuresed with Lasix 40 mg and started on Eliquis due to recurrent episodes of atrial fibrillation. On 07/09 POD #6 patient's Cordis was removed. He was deemed stable for discharge home,
however, during evaluation with cardiac rehab patient became mildly hypotensive and dizzy. Therefore, his discharge was held and BB were decreased. On 07/10 POD #7, patient reported better ambulation no dizziness. He was later discharged on his new
medication regimen with follow up blood work in one week.
Home medication changes:
see below
Discharge Plan
-
Patient Disposition: Home (Routine Discharge)
Discharge Diagnosis/Procedures: CABG x 5, left atrial appendage clip
Condition: Good
Diet: Low Cholesterol and 2 Gram Sodium
Activity: No strenuous activity
Driving Restrictions: Not until seen by your Dr
Bathing Restrictions: OK to Shower
Blood Work: f/u BMP/CBC in one week
Other Services: Cardiac Rehab
Specialty Instructions: Weigh Daily- Call MD for wt gain/loss 3 lbs overnight/5 lbs in 1 week
Activity Restrictions/Additional Instructions:
Please call [facility] to get scheduled. P: [phone]
ACTIVITY:
-No strenuous activity: no heavy lifting, pushing, pulling anything over 15 pounds for one month
-continue to use stairs as tolerated
DRIVING RESTRICTIONS:
-No driving for one month or until approved by your surgeon
WOUND CARE:
-Shower daily. Use soap & water.
-No lotions, creams or powders on incision area.
DIET:
-continue a low fat/low cholesterol diet.
-IF you are diabetic, continue carb controlled diet.
CARDIAC REHAB:
-Please make appointment to start in 5-6 weeks with your local hospital program. (See Cardiac Rehabilitation Discharge Booklet).
SPECIALTY INSTRUCTIONS:
-Weigh yourself daily. Call your physician for any weight gain/loss of 3 lbs overnight or 5 lbs in one week.
-REPORT any clicking noise or uneven appearance of your sternum to your surgeon immediately.
-If you smoke, you are instructed to quit. The [place] smoking hotline phone number is [phone]
Referrals:
CT Transitional Care Nurse [Outside] (The Cardiothoracic Transitional Care Nurse will call you to set up a visit in 1-2 days.)
Vicente Person MD [Active] - in six weeks (For asthma/Suspected sleep apnea )
Aleksandar Lyle MD [Family Provider] - in one week
Jacqueline Copeland PA-C [Specified Professional Personl] - 08/14/24 9:40 am
Pascale Diehl CRNP [Specified Professional Personl] - 08/06/24 2:00 pm
Additional Discharge Medication Instructions: Please note that your oral diabetic medications are on hold due to your kidney numbers and your tresiba dose was increased. You will get blood work in one week and please follow up with your PCP for your
diabetes management.
Please take your metoprolol at night
Please take your amiodarone 200mg twice a day for 14 days and then 200mg daily
Prescriptions:
New
acetaminophen 325 mg Tablet
650 mg PO Q4HPRN PRN (Reason: mild pain,headache,temp >101F ) Qty: 0 0RF
cyclobenzaprine 10 mg Tablet
5 mg PO Q8HPRN PRN (Reason: muscle spasm) Qty: 30 0RF
Eliquis 5 mg Tablet
5 mg PO BID Qty: 60 1RF
amiodarone 200 mg Tablet
200 mg PO BID Qty: 60 1RF
Rx Instructions:
please take 200mg twice a day for 14 days and then 200mg daily
ferrous sulfate [FeroSul] 325 mg (65 mg iron) Tablet
325 mg PO DAILY Qty: 30 0RF
gabapentin 300 mg Capsule
300 mg PO TID Qty: 60 0RF
oxycodone 5 mg Tablet
2.5 mg PO Q6HPRN PRN (Reason: severe pain) Qty: 20 0RF
dapagliflozin propanediol 10 mg Tablet
10 mg PO DAILY Qty: 60 1RF
ascorbic acid (vitamin C) [Vitamin C] 500 mg Tablet
500 mg PO DAILY Qty: 0 0RF
guaifenesin 600 mg Tablet Extended Release 12hr
600 mg PO Q12 Qty: 30 0RF
insulin lispro 200 unit/mL (3 mL) insulin pen
10 unit SC AC Qty: 6 0RF
Continued
fluticasone propion-salmeterol 250-50 mcg/dose Blister With Device
1 inh INHALATION R BID
fexofenadine 180 mg Tablet
180 mg PO DAILYPRN PRN (Reason: allergies)
famotidine [Pepcid] 20 mg Tablet
20 mg PO DAILYPRN PRN (Reason: indigestion)
albuterol sulfate 90 mcg/actuation Hfa Aerosol Inhaler
2 puff INHALATION R Q6HPRN PRN (Reason: sob)
(DME) blood-glucose meter [Contour Next One Meter] Misc
Qty: 1 0RF
Rx Instructions:
As Directed
(DME) Contour Next Test Strips Strip
Qty: 200 0RF
Rx Instructions:
As Directed
(DME) lancets [Color Lancets] 21 gauge Misc
Qty: 200 0RF
Rx Instructions:
As Directed
aspirin 81 mg Tablet
81 mg PO DAILY
Rx Instructions:
patient took 325mg of aspirin po 06/20/24
atorvastatin 40 mg tablet
80 mg PO DAILY
Rx Instructions:
'just got it'
Changed
insulin degludec [Tresiba FlexTouch U-100] 100 unit/mL (3 mL) Insulin Pen
12 unit SC DAILY Qty: 0 0RF
metoprolol succinate 25 mg Tablet Extended Release 24 Hr
25 mg PO HS Qty: 0 0RF
Rx Instructions:
just got this
Discontinued
glimepiride 2 mg tablet
2 mg PO DAILY
metformin 1,000 mg tablet
1,000 mg PO BID@0800,1700
lisinopril 10 mg tablet
10 mg PO DAILY
Discharge Orders:
Discharge Patient (As Directed); Ordered 07/10/24
Ordered By: Lilibeth Menon
Care Plan Goals
Care Plan Goals:
Problem: Readiness for enhanced knowledge related to diagnosis and treatment plan
Goal: Understand your diagnosis and treatment plan needs, including medications if applicable.
Instructions: Know your diagnosis, underlying causes and treatment plan options, including medications if applicable. Consult with your health care team to learn about your diagnosis and treatment plan, including medications if applicable.
Discharge Date and Time
Print Language: LITHUANIAN
[2024-07-09 11:37] LABS: Glucose - Point of Care 190 mg/dl (70-99)
[2024-07-09] MEDS: VENTOLIN NEBULES 2.5 MG INH ×2 (12:13→22:32)
[2024-07-09] MEDS: NOVOLOG FLEXPEN-MODERATE RESISTANCE 1 UNITS SC ×2 (12:15→16:41)
[2024-07-09 16:40] LABS: Glucose - Point of Care 169 mg/dl (70-99)
[2024-07-09] MEDS: ADVAIR HFA 115/21 MCG INHALER INH (19:28)
[2024-07-09 21:49] LABS: Glucose - Point of Care 160 mg/dl (70-99)
[2024-07-09] MEDS: ROXICODONE 2.5 MG PO (22:01)
[2024-07-09] MEDS: XANAX 0.5 MG PO (22:01)
[2024-07-10 03:17] VITALS: BP 113/63
[2024-07-10 03:19] VITALS: BP 113/63
[2024-07-10 03:30] VITALS: BMI 40.3
[2024-07-10] MEDS: TYLENOL 1000 MG PO (03:52)
[2024-07-10] MEDS: VENTOLIN NEBULES 2.5 MG INH ×3 (04:19→12:16)
[2024-07-10 04:36] LABS: Hemoglobin 8.1 g/dL (13.0-18.0); Mean Corp Hgb Conc. 33.8 g/dL (33.0-37.0); Mean Corpuscular Hgb 29.1 pg (27.0-31.0); Mean Corpuscular Volume 86.3 fL (80.0-94.0); Mean Platelet Volume 10.6 fL (7.4-10.4); Platelet Count 314 10^3/uL (130-400); Red Blood Cell Count 2.78 10^6/uL (4.70-6.10); Red Cell Dist. Width 14.3 % (11.5-14.5); White Blood Cell Count 15.1 10^3/uL (4.8-10.8)
[2024-07-10 05:02] LABS: Blood Urea Nitrogen 48 mg/dl (9-20); Calcium 8.4 mg/dl (8.4-10.2); Carbon Dioxide 25 mmol/L (22-30); Chloride 103 mmol/L (98-107); Estimated Creatinine Clearance 68 ml/min; Glucose 146 mg/dl (70-99); Magnesium 2.3 mg/dl (1.6-2.3); Potassium 4.3 mmol/L (3.5-5.1); Sodium 136 mmol/L (135-145); eGFR 49.94
--- NOTE | 2024-07-10 06:08 | W.PN.CT ---
Today's Communication / Plan
-
Plan:
-No major issues overnight. Hemodynamically and neurologically intact
-Pt went into a-fib with RVR in 130's x ~ 4hrs on POD#3 and 8.5 hrs on POD#4
-Started Eliquis yesterday 07/08
-BP has been soft postop. Had some lightheadedness with ambulation yesterday 07/09. Will decrease Toprol XL to 12.5 mg BID, from 25 BID
-H/H 8.04/05 after 1u PRBC on 07/05, monitor
-Avoid diuresis today
-Monitor postop CANDIS, 1.6 today, was 1.6 yesterday, peaked @ 1.7, baseline 1.0-1.4. Metformin and Glimepiride on hold. Will f/u cr as an outpt
-Diabetes education and management following given AIC of 13.9, started Lantus and Novolog while Metformin and Glimepiride are on hold
-Increased AC Novolog from 5u to 8u and Lantus from 15u to 20u, given elevated blood glucose
-Cont. current meds (ASA, Plavix, Toprol Xl, Amiodarone, Lantus, Novolog)
-No temporary PW
-Encourage use of IS
-OOB into chair/Ambulate
-Home today
Assessment / Plan
-
- s/p CABG x 5 (BARTOLO to LAD, GSV to D1, sGSV to OM1-OM4, GSV to RPDA); Endoscopic harvest/prep of RLE GSV; ELAA [45mm AtriClip] by Dr. Engle on 07/03/24, pod #7
- Intraop SATISH: LVEF 55-60%, no regional wma. The left atrial appendage is no longer visible with color Doppler confirming the absence of flow. The mitral regurgitation is mild in severity postop
- Multi-vessel CAD including INTERNAL REVENUE SERVICE AGENT of LAD and RCA
- Class 3 obesity (BMI 40)
- HTN/HLD
- DM II (HgA1c 13.9)
- Former smoker
- Small lung nodules on CT
- Hx PNA
- OA/ lumbar DDD
- Psoriasis
- CKD 3a - Cr 1.4 preop
- Acute postop blood loss anemia- stable without transfusion
- Acute postop atelectasis
- Acute postop hypovolemia with subsequent hypervolemia
- CANDIS on CKD.
- Suspected acute postop pericarditis/+rub
- Acute postop hyponatremia, 131
- Acute postop a-fib with RVR 130's x ~ 4hrs
Discussed patient care with: Cardiology, Nursing, Respiratory Therapy, Pharmacy and Care Team
Subjective
-
Date of Service: July 10, 2024
c/o lightheadedness with ambulation afternoon, resolved with evening ambulation
Objective Data
-
Lab Results
07/10/24 03:26
07/10/24 03:26
PT 17.1 Sec (11.4-14.6) H 07/03/24 14:48
INR 1.34 07/03/24 14:48
APTT 31.8 Sec (23.4-35.0) 07/03/24 14:48
Vital Signs
Vital Signs
Temp Pulse Resp BP Pulse Ox
97.7 F 72 16 113/63 96
07/10/24 03:17 07/10/24 04:30 07/10/24 04:21 07/10/24 03:19 07/10/24 03:17
CT Intake/Output/Weight
07/09/24 07/09/24 07/10/24
06:59 18:59 06:59
Intake Total 240 / 240
Balance 240 / 240
SaO2: 96 (RA)
Physical Exam
-
General: Awake, Oriented and AOx3
Cardiovascular: Regular rate & rhythm, No Murmurs, No Rub and No Gallop
Respiratory: Decreased Breath Sounds (at bases, otherwise clear)
Sternum: Stable
Incision: Clean, Dry, Intact and Dressing Intact
Extremities: No Edema
Data Reviewed
-
Lab Results: Results Reviewed
Medications: Active Meds Reviewed
Chest X-Ray: Report Reviewed and Image Reviewed
ECG: Report Reviewed and Image Reviewed
--- NOTE | 2024-07-10 06:22 | PTCARENOTE ---
Pt reports mild discomfort but requesting to walk around unit with staff assistance before taking pain medication. Pt updated on plan of care. See mar and flowchart for full care and assessment. Pt resting at bedside with family and call ramirez
within reach. See Mar and flowchart for full pt care and assessment.
[2024-07-10] MEDS: CALCIUM GLUCONATE 100 IV (06:38)
[2024-07-10 07:02] VITALS: BP 124/64
[2024-07-10 07:11] LABS: Glucose - Point of Care 149 mg/dl (70-99)
[2024-07-10] MEDS: ADVAIR HFA 115/21 MCG INHALER 2 PUFF INH (07:28)
[2024-07-10] MEDS: NOVOLOG FLEXPEN-MODERATE RESISTANCE SC ×2 (07:51→12:34)
--- NOTE | 2024-07-10 07:57 | PN.DE.MGMTRT ---
Insulin Management
- -
07/10/2024: Diabetes Management Follow up
Patient admitted for scheduled CABG 07/03. PMH multivessel CAD, HTN, HLD, GERD, diabetes, obesity, asthma, psoriasis. Prior to admission was taking 1000 mg metformin BID, Tresiba 8 units daily, glimepiride 2 mg daily. Patient known to me from
admission 06/11 with A1C 13.9%.
POD # 7 s/p CABG x 5. Doing well. Awake, alert, oriented, sitting up in chair, offers no complaints, able to discuss diabetes care plan
Patient was transitioned off insulin infusion on 07/05 to SQ insulin. Noted for CANDIS, Cr 1.7-->1.6, eGFR 49.94 today, Metformin and Glimepiride remain on hold.
Received Lantus 20 units @ HS, FBG 146 V, 149 POC, will cont same dose of Lantus 20 units.
07/09 Premeal range 133 to 190, will cont same dose AC NovoLog 10 units and moderate corrective insulin with meals.
Will cont to follow. Discussed with nurse.
Patient was provided with Contour Next glucose monitor during his past hospital stay and states that he has enough supplies at home. Encourage f/u with PCP to adjust insulin dose and get script for a CGM.
Meds at Discharge: Tresiba 12 units, NovoLog 10 units and Farxiga 10mg daily
Pt will need close f/u with PCP to transition back to his oral regimen when kidney function is at baseline
Diabetes History
- -
Type of Diabetes: 2 requiring insulin
Pre-Admission Diabetes Regimen
07/10/24
03:26
Creatinine 1.6 H
Insulin Pump Settings
IP Diabetes Regimen
07/09/24 07/09/24 07/09/24
11:35 16:39 21:48
Glucose
POC Glucose 190 H 169 H 160 H
07/10/24 07/10/24
03:26 07:10
Glucose 146 H
POC Glucose 149 H
Meal type: Dinner
Amount consumed: 100%
Patient Education
[2024-07-10] MEDS: ELIQUIS 5 MG PO (08:34)
[2024-07-10] MEDS: NOVOLOG FLEXPEN 10 UNITS SC (08:34)
[2024-07-10] MEDS: LANTUS 0.2 UNITS SC (08:35)
[2024-07-10] MEDS: FEOSOL 325 MG PO (08:35)
[2024-07-10] MEDS: FARXIGA 10 MG PO (08:35)
[2024-07-10] MEDS: LIPITOR 80 MG PO (08:37)
[2024-07-10] MEDS: NEURONTIN 300 MG PO (08:38)
[2024-07-10] MEDS: PROTONIX 40 MG PO (08:38)
[2024-07-10] MEDS: LOW STRENGTH ASPIRIN 81 MG PO (08:38)
[2024-07-10] MEDS: MUCINEX 600 MG PO (08:38)
[2024-07-10] MEDS: SENOKOT-S 1 TABLET PO (08:38)
[2024-07-10] MEDS: PACERONE 200 MG PO (08:38)
[2024-07-10] MEDS: TOPROL XL 12.5 MG PO (08:39)
[2024-07-10] MEDS: VITAMIN C 500 MG PO (08:40)
[2024-07-10] MEDS: FLUSH (NSS) 1 FLUSH IV (08:40)
--- NOTE | 2024-07-10 09:36 | CM ---
Reviewed chart. Met with Mr. De Leon to review discharge plans. He states he feels well and maybe able to go home soon. He states his spouse will be working from home for one to two weeks, so she will be home to assist in his care if needed. He
states he has a recliner at home that he may sleep in for awhile. Prior to admission he resides with his spouse and two children in a spilt level home with one step to enter. He has six steps to each level. Prior to admission he was independent
with ambulation and adls. He does not have any DME in the home. He has a prescription plan and uses [email or web address]. We reviewed a home visit by the Transitional Care Nurse. He is agreeable to a home visit. Medical work-up in progress. The
discharge plan is to return home with his spouse and children with a home visit by the Transitional Care Nurse when medically stable.
[2024-07-10 10:32] VITALS: BP 124/67
[2024-07-10 10:33] VITALS: BP 112/49
[2024-07-10 11:54] VITALS: BP 149/75
--- NOTE | 2024-07-10 12:19 | PTCARENOTE ---
Patient ambulating in his room and out to the roque this morning, seen by CT surgery and is ok for discharge today. 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 Aquacel removed from his sternum and is
approximated and healing well. Patient assisted with showering and is waiting for his for discharge home.
[2024-07-10] MEDS: NOVOLOG FLEXPEN SC (12:33)
--- NOTE | 2024-07-10 13:14 | PTCARENOTE ---
Patient fatigued and felt winded after showering/dressing and asked for a neb tx. Respiratory notified and patient given a neb tx with relief. Reviewed discharge instructions, medications, restrictions and follow up appointments in detail with the
and patient and they state their understanding. Patient appears overwhelmed with instructions but the is very supportive and receptive. Patient discharged home with CT nurse VN.
== END 2024-07-10 13:18 | disposition home or self-care (01) | DRG 236 ==
LOC: IVU 05:27
PROVIDERS: Clinical Nurse Specialist Acute Care; Nurse Practitioner; Physician Assistant Medical; ADMITTING PHYSICIAN Thoracic Surgery (Cardiothoracic Vascular Surgery); CONSULT PHYSICIAN Internal Medicine; FAMILY PHYSICIAN Family Medicine
PROC: B24BZZ4 Ultrasonography of Heart with Aorta, Transesophageal (ICD-10-PCS; 2024-07-03)
PROC: 02100ZC Bypass Coronary Artery, One Artery from Thoracic Artery, Open Approach (ICD-10-PCS; 2024-07-03)
PROC: 02L70CK Occlusion of Left Atrial Appendage with Extraluminal Device, Open Approach (ICD-10-PCS; 2024-07-03)
PROC: 5A1221Z Performance of Cardiac Output, Continuous (ICD-10-PCS; 2024-07-03)
PROC: 06BP0ZZ Excision of Right Saphenous Vein, Open Approach (ICD-10-PCS; 2024-07-03)
PROC: 0213093 Bypass Coronary Artery, Four or More Arteries from Coronary Artery with Autologous Venous Tissue, Open Approach (ICD-10-PCS; 2024-07-03)
PROC: 30243N1 Transfusion of Nonautologous Red Blood Cells into Central Vein, Percutaneous Approach (ICD-10-PCS; 2024-07-05)
DX: I25.10 Atherosclerotic heart disease of native coronary artery without angina pectoris (principal); D62 Acute posthemorrhagic anemia; J98.11 Atelectasis; I30.8 Other forms of acute pericarditis; E87.1 Hypo-osmolality and hyponatremia; I97.190 Other postprocedural cardiac functional disturbances following cardiac surgery; N17.9 Acute kidney failure, unspecified; Z68.41 Body mass index [BMI] 40.0-44.9, adult; I25.82 Chronic total occlusion of coronary artery; I12.9 Hypertensive chronic kidney disease with stage 1 through stage 4 chronic kidney disease, or unspecified chronic kidney disease; E11.65 Type 2 diabetes mellitus with hyperglycemia; E11.22 Type 2 diabetes mellitus with diabetic chronic kidney disease; J45.909 Unspecified asthma, uncomplicated; R91.8 Other nonspecific abnormal finding of lung field; N18.31 Chronic kidney disease, stage 3a; E78.5 Hyperlipidemia, unspecified; E66.813 Obesity, class 3; I48.0 Paroxysmal atrial fibrillation; Y83.2 Surgical operation with anastomosis, bypass or graft as the cause of abnormal reaction of the patient, or of later complication, without mention of misadventure at the time of the procedure; E86.1 Hypovolemia; E87.70 Fluid overload, unspecified; M19.90 Unspecified osteoarthritis, unspecified site; M51.369 Other intervertebral disc degeneration, lumbar region without mention of lumbar back pain or lower extremity pain; K21.9 Gastro-esophageal reflux disease without esophagitis; Z87.891 Personal history of nicotine dependence; Z82.49 Family history of ischemic heart disease and other diseases of the circulatory system; Z83.3 Family history of diabetes mellitus; Z79.84 Long term (current) use of oral hypoglycemic drugs; Z79.82 Long term (current) use of aspirin; Z79.4 Long term (current) use of insulin; Z87.01 Personal history of pneumonia (recurrent)
CPT/HCPCS: 94727; 94729; 36415; 71045; 71046; 80048; 80053; 81003; 81015; 82248; 82330; 82565; 82805; 82810; 82947; 82962; 83735; 84132; 84302; 84520; 85014; 85018; 85025; 85027; 85049; 85610; 85730; 86850; 86900; 86901; 86920; 87070; 88738; 93005; 93312; 93320; 93325; 93880; 94002; 94010; 94640; C1713; P9016; P9045; P9047

== ENCOUNTER 2024-07-22 13:26 | Emergency (ER) | payer OTHER, SELFPAY ==
[2024-07-22 13:50] VITALS: BP 120/75
[2024-07-22 14:33] LABS: % Basophils 0.5 % (0-2); % Eosinophils 1.5 % (0-6); % Immature Granulocytes 0.5 % (0-0.5); % Lymphocytes 14.2 % (20.5-51.1); % Neutrophils 75.3 % (42.2-75.2); Absolute Basophils 0.1 10^3/uL (0-0.2); Absolute Eosinophils 0.2 10^3/uL (0-0.7); Absolute Immature Granulocytes 0.1 10^3/uL (0-0.05); Absolute Lymphocytes 1.8 10^3/uL (1.2-3.4); Absolute Neutrophils 9.7 10^3/uL (1.4-6.5); Hematocrit 35.4 % (39.0-52.0); Hemoglobin 11.3 g/dL (13.0-18.0); Mean Corp Hgb Conc. 31.9 g/dL (33.0-37.0); Mean Corpuscular Hgb 27.4 pg (27.0-31.0); Mean Corpuscular Volume 85.7 fL (80.0-94.0); Mean Platelet Volume 9.6 fL (7.4-10.4); Nucleated Red Blood Cells % 0 % (-); Platelet Count 511 10^3/uL (130-400); Red Blood Cell Count 4.13 10^6/uL (4.70-6.10); Red Cell Dist. Width 15.2 % (11.5-14.5); White Blood Cell Count 12.9 10^3/uL (4.8-10.8)
[2024-07-22 14:45] LABS: ALT (SGPT) 22 U/L (0-50); AST (SGOT) 21 U/L (17-59); Albumin 3.6 g/dl (3.5-5.0); Alkaline Phosphatase 87 U/L (38-126); Blood Urea Nitrogen 29 mg/dl (9-20); Calcium 9.6 mg/dl (8.4-10.2); Carbon Dioxide 22 mmol/L (22-30); Chloride 101 mmol/L (98-107); Glucose 210 mg/dl (70-99); Lipase 68 U/L (23-300); Potassium 5.2 mmol/L (3.5-5.1); Sodium 135 mmol/L (135-145); Total Bilirubin 1.1 mg/dl (0.2-1.3); Total Protein 7.2 g/dl (6.3-8.2); eGFR 58.62
--- NOTE | 2024-07-22 16:56 | ED.GENMED ---
History of Present Illness
General
Chief Complaint: Bowel Problem
Source: patient and spouse
Exam Limitations: none
Time Seen by Provider: 07/22/24 16:31
Nursing documentation reviewed up to this point in time: agreed with
History of Present Illness
History of Present Illness:
Patient status post CABG 3 weeks ago, discharged home 10 days ago, presents to ED secondary to inability to have bowel movements despite rectal pressure. Since being discharged home, patient states that he has had difficulty with bowel movements,
with small bowel movements consisting of hard stools. Denies abdominal pain. Denies fever or chills. Denies trauma. Denies previous history of constipation. Patient is currently taking gabapentin along with Roxicodone for pain relief.
Past History
Past History
ED Past Medical History: Asthma, HTN, NIDDM and Other
ED Past Surgical History: None
Social History
Tobacco: Non-smoker
Alcohol: Occasional
Drug: None
Personal:
Living: with family
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
Family History
Family History: Early CAD
Review of Systems
Review of Systems
Allergies reviewed?: Yes
All Other Systems: ROS reviewed and negative except as documented in HPI and ROS
Constitutional: Reports no symptoms; Denies fever
Respiratory: Reports no symptoms; Denies trouble breathing
ABD/GI: Reports constipated; Denies abdominal pain or vomiting
Musculoskeletal: Reports no symptoms
Skin: Reports no symptoms
Neurological: Reports no symptoms
Phy Exam
Physical Exam
Physical Exam:
Physical Exam
General: no apparent distress, not acutely ill. afebrile
Head: nc/at. eomi
Neck: supple. normal range of motion.
Abdomen: normal bowel sounds. not tender.
Neuro: alert and oriented x 3. no focal neurological deficits
Skin: no rash
Psychiatric: well kept. interactive and cooperative
Extremities: no edema. no calf tenderness
Course
Orders/Labs/Results
Orders:
Orders
07/22/24 13:54
CR Obstruct Series W/pa Chest Urgent
Comment:
Reason For Exam: constipation
07/22/24 13:59
Complete Blood Count/With Diff Urgent
Comprehensive Metabolic Panel Urgent
Lipase Urgent
Abnormal Lab Results
07/22/24
13:59
WBC 12.9 H 10^3/uL
(4.8-10.8)
RBC 4.13 L 10^6/uL
(4.70-6.10)
Hgb 11.3 L g/dL
(13.0-18.0)
Hct 35.4 L %
(39.0-52.0)
MCHC 31.9 L g/dL
(33.0-37.0)
RDW 15.2 H %
(11.5-14.5)
Plt Count 511 H 10^3/uL
(130-400)
Abs Immat Gran (auto) 0.1 H 10^3/uL
(0-0.05)
Absolute Neuts (auto) 9.7 H 10^3/uL
(1.4-6.5)
Absolute Monos (auto) 1.0 H 10^3/uL
(0.1-0.6)
Neutrophils % 75.3 H %
(42.2-75.2)
Lymphocytes % 14.2 L %
(20.5-51.1)
Potassium 5.2 H mmol/L
(3.5-5.1)
BUN 29 H mg/dl
(9-20)
Creatinine 1.4 H mg/dL
(0.7-1.3)
Glucose 210 H mg/dl
(70-99)
07/22/24 13:59
07/22/24 13:59
Vital Signs
Initial and Last Documented VS:
Initial Vital Signs
Temp Pulse Resp BP Pulse Ox
97.8 F 103 18 120/75 96
07/22/24 13:50 07/22/24 13:50 07/22/24 13:50 07/22/24 13:50 07/22/24 13:50
Last Documented Vital Signs
Temp Pulse Resp BP Pulse Ox
97.8 F 75 16 115/76 99
07/22/24 13:50 07/22/24 17:06 07/22/24 17:06 07/22/24 17:06 07/22/24 17:06
MDM/Problems Addressed
MDM/Problems Addressed:
X-ray report reviewed and discussed with patient. Despite pleural effusion noted on x-ray, patient without any respiratory symptoms, likely result of recent cardiac surgery.
While waiting in waiting room, patient reports having had large bowel movement, with resolution of his presenting symptoms. Abdominal exam benign. Patient request to be discharged home, which I believe is reasonable, with recommendation to
continue bowel regimen at home, including stool softener and MiraLAX. Advised return to ED with worsening symptoms.
Discussed findings with CT surgery, , via [employer]
*Critical Care Note
Total Time (30-74mins, 75-104mins- exclusive of procedures): Not Applicable
ED Attending Note
-
Portions of this chart may have been created with voice recognition software.� Occasional wrong word or��sound alike� substitutions may have occurred due to the inherent limitations of voice recognition software.
Discharge Plan
Departure
Patient Disposition: Home (Routine Discharge)
Date of Disposition: 07/22/24
Time of Disposition: 16:56
Patient with high blood pressure during this ER visit?: No
Condition: Good
Discharge Problem:
Constipation
Instructions: Constipation, Adult (DC)
Prescriptions:
No Action
fluticasone propion-salmeterol 250-50 mcg/dose Blister With Device
1 inh INHALATION R BID
fexofenadine 180 mg Tablet
180 mg PO DAILYPRN PRN (Reason: allergies)
famotidine [Pepcid] 20 mg Tablet
20 mg PO DAILYPRN PRN (Reason: indigestion)
albuterol sulfate 90 mcg/actuation Hfa Aerosol Inhaler
2 puff INHALATION R Q6HPRN PRN (Reason: sob)
(DME) blood-glucose meter [Contour Next One Meter] Misc
Qty: 1 0RF
Rx Instructions:
As Directed
(DME) Contour Next Test Strips Strip
Qty: 200 0RF
Rx Instructions:
As Directed
(DME) lancets [Color Lancets] 21 gauge Misc
Qty: 200 0RF
Rx Instructions:
As Directed
aspirin 81 mg Tablet
81 mg PO DAILY
Rx Instructions:
patient took 325mg of aspirin po 06/20/24
atorvastatin 40 mg tablet
80 mg PO DAILY
Rx Instructions:
'just got it'
acetaminophen 325 mg Tablet
650 mg PO Q4HPRN PRN (Reason: mild pain,headache,temp >101F ) Qty: 0 0RF
cyclobenzaprine 10 mg Tablet
5 mg PO Q8HPRN PRN (Reason: muscle spasm) Qty: 30 0RF
Eliquis 5 mg Tablet
5 mg PO BID Qty: 60 1RF
amiodarone 200 mg Tablet
200 mg PO BID Qty: 60 1RF
Rx Instructions:
please take 200mg twice a day for 14 days and then 200mg daily
ferrous sulfate [FeroSul] 325 mg (65 mg iron) Tablet
325 mg PO DAILY Qty: 30 0RF
gabapentin 300 mg Capsule
300 mg PO TID Qty: 60 0RF
oxycodone 5 mg Tablet
2.5 mg PO Q6HPRN PRN (Reason: severe pain) Qty: 20 0RF
dapagliflozin propanediol 10 mg Tablet
10 mg PO DAILY Qty: 60 1RF
ascorbic acid (vitamin C) [Vitamin C] 500 mg Tablet
500 mg PO DAILY Qty: 0 0RF
guaifenesin 600 mg Tablet Extended Release 12hr
600 mg PO Q12 Qty: 30 0RF
insulin lispro 200 unit/mL (3 mL) insulin pen
10 unit SC AC Qty: 6 0RF
insulin degludec [Tresiba FlexTouch U-100] 100 unit/mL (3 mL) Insulin Pen
12 unit SC DAILY Qty: 0 0RF
metoprolol succinate 25 mg Tablet Extended Release 24 Hr
25 mg PO HS Qty: 0 0RF
Rx Instructions:
just got this
Referrals:
Aleksandar Lyle MD [Family Provider] -
Interventions
Interventions:
*Risk Screen - Suicide Last Done: 07/22/24 13:50
*General Assessment Last Done: 07/22/24 13:50
*Neglect/Abuse Screening Last Done: 07/22/24 17:07
*ED- Fall Risk Assessment Last Done: 07/22/24 17:07
*Nursing Disposition Last Done: 07/22/24 17:08
DZ-Nqmupj-Hphogwljkl Assessment Last Done: 07/22/24 17:07
Discharge Date and Time
Discharge Date/Time: 07/22/24 17:08
Print Language: [place]
[2024-07-22 17:06] VITALS: BP 115/76
== END 2024-07-22 17:08 | disposition home or self-care (01) ==
LOC: EMR 13:26
PROVIDERS: Emergency Medicine; EMERGENCY PHYSICIAN Emergency Medicine; FAMILY PHYSICIAN Family Medicine
DX: K59.00 Constipation, unspecified (principal); J45.909 Unspecified asthma, uncomplicated; I10 Essential (primary) hypertension; E11.9 Type 2 diabetes mellitus without complications; Z79.899 Other long term (current) drug therapy; Z82.49 Family history of ischemic heart disease and other diseases of the circulatory system; Z95.1 Presence of aortocoronary bypass graft
CPT/HCPCS: 99283; 74022; 80053; 83690; 85025